=== PATIENT | male | born 1935 | race Caucasian/White ===

== ENCOUNTER 2017-05-10 08:00 | Outpatient (RCR) | payer MEDICARE, OTHER, SELFPAY ==
[2017-03-06 15:16] VITALS: BMI 49.1
[2017-04-10 01:37] VITALS: BP 106/60; BP 174/70
--- NOTE | 2017-05-10 10:31 | CR.ITP_ITS ---
Exercise - Initial Assessment - Stages of Change Stages of Change:: Contemplate - Exercise Prescription Mode:: Treadmill, Biodyne, Rower, Airdyne, NuStep, Arm Ergometer Angina with exercise?: No - Hypertension Do any of the following apply?: Yes - Intervention Home Exercise/Activity Goal:: Sitting Time <3 hrs/day - Education Goals:: Warm-up, RPE DAVID Scale, S/S, Safe Exercise, Self-Monitoring - Exercise Program Goals Exercise Program Goals: Aerobic Activity >30 min, B/P <140/90 Exercise - 30-day Assessment - Visit Date of Eval: 04/07/17 - Stages of Change Stages of Change:: Action - Exercise Prescription Mode:: Treadmill, Airdyne, NuStep Frequency (x/week): 3 Duration:: 30 METs - Progression: 0.5-1 MET as tolerated: 4 Target Heart Rate:: 99-112 Max HR 117 - Intervention Home Exercise/Activity Goal:: Sitting Time <3 hrs/day - Education Goals:: Warm-up, RPE DAVID Scale, S/S, Safe Exercise, Self-Monitoring - Exercise Program Goals Exercise Program Goals: B/P <140/90 Exercise - 60-Day Assessment - Visit Date of Eval: 05/10/17 Session #:: 19 - Stages of Change Stages of Change:: Action - Exercise Prescription Mode:: Treadmill, Airdyne, NuStep Frequency (x/week): 3 Duration:: 30 METs: 5.4 Target Heart Rate:: 99-112 - Hypertension Resting Blood Pressure:: 126/54 Peak Exercise Blood Pressure:: 166/90 Medication Changes:: No - Intervention Home Exercise/Activity Goal:: Moderate Exercise 30 min/day x 5 days/wk - Education Goals:: Warm-up, RPE DAVID Scale, S/S, Safe Exercise, Self-Monitoring - Exercise Program Goals Exercise Program Goals: Aerobic Activity >30 min Exercise - Final/Discharge - Hypertension Do any of the following apply?: Yes Nutrition - Initial Assessment - Program Goals Nutrition Program Goals: LDL <70. Total Cholesterol <200. HDL >45. Triglycerides <150. HgbA1C <7%. BMI <25 - Stages of Change Stages of Change:: Contemplate - Diabetes Diabetes:: No - Weight Management Total Score:: 2 - Intervention Referral to dietitian:: No Referral to Diabetic Clinic:: No - Education Gave educational materials for:: Signs & symptoms of hypoglycemia, Signs & symptoms of hyperglycemia, Relate diabetes to coronary artery disease, Healthy eating Nutrition - 30-Day Assessment - Program Goals Nutrition Program Goals: LDL <70. Total Cholesterol <200. HDL >45. Triglycerides <150. HgbA1C <7%. BMI <25 - Stages of Change Stages of Change:: Action - Lipids Has the patient seen the dietitian?: No - Diabetes Diabetes:: No - Intervention Referral to dietitian:: No Referral to Diabetic Clinic:: No - Education Attended class for:: Signs & symptoms of hypoglycemia, Signs & symptoms of hyperglycemia, Relate diabetes to coronary artery disease, Healthy eating Nutrition - 60-Day Assessment - Program Goals Nutrition Program Goals: LDL <70. Total Cholesterol <200. HDL >45. Triglycerides <150. HgbA1C <7%. BMI <25 - Visit Date of Eval: 05/10/17 - Stages of Change Stages of Change:: Action - Lipids Has the patient seen the dietitian?: No - Diabetes Diabetes:: No - Weight Management Weight:: 103.873 kg - stable, but feels clothes fit better - Intervention Referral to dietitian:: No Referral to Diabetic Clinic:: No - Education Attended class for:: Signs & symptoms of hypoglycemia, Signs & symptoms of hyperglycemia, Relate diabetes to coronary artery disease, Healthy eating Nutrition - 90-Day Assessment - Program Goals Nutrition Program Goals: LDL <70. Total Cholesterol <200. HDL >45. Triglycerides <150. HgbA1C <7%. BMI <25 - Lipids Has the patient seen the dietitian?: No - Diabetes Diabetes:: No - Intervention Referral to dietitian:: No Referral to Diabetic Clinic:: No - Education Attended class for:: Signs & symptoms of hypoglycemia, Signs & symptoms of hyperglycemia, Relate diabetes to coronary artery disease, Healthy eating Nutrition - Final Assessment - Program Goals Nutrition Program Goals: LDL <70. Total Cholesterol <200. HDL >45. Triglycerides <150. HgbA1C <7%. BMI <25 - Diabetes Diabetes:: No - Weight Management Total Score:: 2 - Intervention Referral to dietitian:: No Referral to Diabetic Clinic:: No Tobacco - Initial Assessment - Program Goals Tobacco Program Goals: Complete smoking cessation. Attend education classes. Improve Knowledge Test score - Stage of Change Stages of Change:: Contemplate - Learning Barriers Learning Barriers: Vision Total Score:: 5 - Family Support Do you have family support?: Yes - Tobacco Use Tobacco Use: Non-smoker Do you use smokeless tobacco?: No - Intervention Smoking Cessation Referral:: No Individual Education/Counseling:: No Education Schedule Given:: Yes - Education Gave educational material for:: Tobacco triggers, Coronary artery disease, Risk factors, Sexuality, Medical compliance, Cardiac A&P, Angina signs & symptoms Tobacco - 30-Day Assessment - Program Goals Tobacco Program Goals: Complete smoking cessation. Attend education classes. Improve Knowledge Test score - Stage of Change Stages of Change:: Action - Learning Barriers Learning Barriers: Participates in education - Family Support Do you have family support?: Yes - Tobacco Use Tobacco Use: Non-smoker Do you use smokeless tobacco?: No - Intervention Smoking Cessation Referral:: No Individual Education/Counseling:: No Education Schedule Given:: Yes - Education Attended class for:: Tobacco triggers, Coronary artery disease, Risk factors, Sexuality, Medical compliance, Cardiac A&P, Angina signs & symptoms Tobacco - 60-Day Assessment - Program Goals Tobacco Program Goals: Complete smoking cessation. Attend education classes. Improve Knowledge Test score - Stage of Change Stages of Change:: Action - Learning Barriers Learning Barriers: Participates in education - Family Support Do you have family support?: Yes - Tobacco Use Tobacco Use: Non-smoker Do you use smokeless tobacco?: No - Intervention Smoking Cessation Referral:: No Individual Education/Counseling:: No Education Schedule Given:: Yes - Education Attended class for:: Tobacco triggers, Coronary artery disease, Risk factors, Sexuality, Medical compliance, Cardiac A&P, Angina signs & symptoms Tobacco - 90-Day Assessment - Program Goals Tobacco Program Goals: Complete smoking cessation. Attend education classes. Improve Knowledge Test score - Family Support Do you have family support?: Yes - Tobacco Use Tobacco Use: Non-smoker Do you use smokeless tobacco?: No - Intervention Smoking Cessation Referral:: No Individual Education/Counseling:: No Education Schedule Given:: Yes - Education Attended class for:: Tobacco triggers, Coronary artery disease, Risk factors, Sexuality, Medical compliance, Cardiac A&P, Angina signs & symptoms Tobacco - Final Assessment - Program Goals Tobacco Program Goals: Complete smoking cessation. Attend education classes. Improve Knowledge Test score - Learning Barriers Cardiac Knowledge Test Score:: 5 - Family Support Do you have family support?: Yes - Tobacco Use Tobacco Use: Non-smoker Do you use smokeless tobacco?: No - Intervention Smoking Cessation Referral:: No Individual Education/Counseling:: No Education Schedule Given:: Yes Psychosocial - Initial Assess - Target Goals Target Goals: Assess presence or absence of depression. Using a valid screening tool, maximizes coping skills. Positive support system - Stages of Change Stages of Change:: Contemplate - Psychosocial Test Tool Used:: HANDS Depression Questionnaire Total Mood Screening Score:: 3 Self-Efficacy Score:: 6 - Education Gave educational materials for:: Coping techniques, Signs & symptoms of depression, Stress management, Relaxation techniques - Patient/Program Goal Preventative Medication(s):: Aspirin, SUKH inhibitor, Clopidogrel, Beta john, Statin/lipid - Assistive Devices Assistive Devices:: None Fall Risk Assessed:: Yes Psychosocial - 30-Day Assess - Target Goals Target Goals: Assess presence or absence of depression. Using a valid screening tool, maximizes coping skills. Positive support system - Stages of Change Stages of Change:: Action - Psychosocial Test Tool Used:: HANDS Depression Questionnaire Total Mood Screening Score:: 3 Self-Efficacy Score:: 6 - Patient/Program Goal Preventative Medication(s):: Aspirin, SUKH inhibitor, Clopidogrel, Beta john, Statin/lipid - Assistive Devices Assistive Devices:: None Fall Risk Assessed:: Yes Psychosocial - 60-Day Assess - Target Goals Target Goals: Assess presence or absence of depression. Using a valid screening tool, maximizes coping skills. Positive support system - Psychosocial Test Tool Used:: HANDS Depression Questionnaire Total Mood Screening Score:: 3 Self-Efficacy Score:: 6 - Intervention PS - Interventions: Yes Attend Stress Management Classes, Yes Uses Stress Management Skills, No Referral to Mental Health, No Referral to [facility] Case Management, No Referral to Physician - Education Attended classes for:: Coping techniques, Signs & symptoms of depression, Stress management, Relaxation techniques - Patient/Program Goal Preventative Medication(s):: Aspirin, SUKH inhibitor, Clopidogrel, Beta john, Statin/lipid - Assistive Devices Assistive Devices:: None Fall Risk Assessed:: Yes Psychosocial - 90-Day Assess - Target Goals Target Goals: Assess presence or absence of depression. Using a valid screening tool, maximizes coping skills. Positive support system - Psychosocial Test Tool Used:: HANDS Depression Questionnaire Total Mood Screening Score:: 3 Self-Efficacy Score:: 6 - Education Attended classes for:: Coping techniques, Signs & symptoms of depression, Stress management, Relaxation techniques - Patient/Program Goal Preventative Medication(s):: Aspirin, SUKH inhibitor, Clopidogrel, Beta john, Statin/lipid - Assistive Devices Assistive Devices:: None Fall Risk Assessed:: Yes Psychosocial - Final Assessmen - Target Goals Target Goals: Assess presence or absence of depression. Using a valid screening tool, maximizes coping skills. Positive support system - Psychosocial Test Tool Used:: HANDS Depression Questionnaire Total Mood Screening Score:: 3 Self-Efficacy Score:: 6 - Patient/Program Goal Preventative Medication(s):: Aspirin, SUKH inhibitor, Clopidogrel, Beta john, Statin/lipid - Assistive Devices Assistive Devices:: None Fall Risk Assessed:: Yes Patient Health Questionnaire 60-Day Re-eval Assessment 1. Little interest or pleasure in doing things: Not at all 2. Feeling down, depressed, or hopeless: Not at all 3. Trouble falling or staying asleep, or sleeping too much: Not at all 4. Feeling tired or having little energy: Several days 5. Poor appetite or overeating: Not at all 6. Feeling bad about yourself -- or that you are a failure or have let yourself or your family down: Not at all 7. Trouble concentrating on things, such as reading the newspaper or watching television: Not at all 8. Moving or speaking so slowly that other people could have noticed. Or the opposite - being so fidgety or restless that you have been moving around a lot more than usual: Not at all 9. Thoughts that you would be better off , or of hurting yourself in some way: Not at all How difficult have these problems made it for you to do your work, take care of things at home, or get along with other people?: Not difficult at all Total Score: 1 Self-Efficacy 60-Day Re-eval Assessment We would like to know how confident you are in doing certain activities. Please select your confidence level for:: Select your confidence level for the following using the scale 1-10 where 1 is not at all confident and 10 is totally confident. Your score is the average of all 6 responses. Fatigue: How confident are you that you can keep the fatigue caused by your disease from interfering with the things you want to do? Select Number: 9 Physical Discomfort or Pain: How confident are you that you can keep the physical discomfort or pain of your disease from interfering with the things you want to do? Select Number: 8 Emotional Distress: How confident are you that you can keep the emotional distress caused by your disease from interfering with the things you want to do? Select Number: 8 Other Symptoms or Health Problems: How confident are you that you can keep other symptoms or health problems from interfering with the things you want to do? Select Number: 8 Different Tasks and Activities: How confident are you that you can do the different tasks and activities needed to manage your health condition so as to reduce your need to see a doctor? Select Number: 9 Medication: How confident are you that you can do things other than just taking medication to reduce how much your illness affects your everyday life? Select Number: 10 Total Score:: 8 Cardiac Rehabilitation Goals - Cardiac Rehab Goals Cardiac Rehabilitation Goals: 1. Maintain the individual as the primary focus of care. 2. To improve the patient's quality of life. 3. Identification of cardiac risk factors and provide cardiac risk factor management. 4. Enhance the psychosocial status of the patient. 5. Reconditioning enough to allow the patient to resume customary activities. 6. Control symptoms of cardiac disease - Scale Scale for measuring improvement of personal goals: Enter appropriate number in Comments. 2 = Unchanged. 3 = Slightly Better. 4 = Moderate Improvement. 5 = Met my Goal 60-Day Re-eval Assessment Personal Goals: 30-day Re-assessment: Improve energy level - improved, Participate in home exercise program - improved, back to [facility] Improve muscle strength and endurance [facility]
[2017-05-10 10:32] VITALS: BP 126/54; BP 166/90
== END 2017-05-10 23:59 ==
LOC: CR 08:00
PROVIDERS: Family Provider Family Medicine; PCP Family Medicine; Visit Provider Internal Medicine Cardiovascular Disease
DX: I25.118 Atherosclerotic heart disease of native coronary artery with other forms of angina pectoris (principal); Z98.61 Coronary angioplasty status
CPT/HCPCS: 93798

== ENCOUNTER 2017-06-07 08:00 | Outpatient (RCR) | payer MEDICARE, OTHER, SELFPAY ==
[2017-03-06 15:16] VITALS: BMI 49.1
[2017-03-28 11:11] VITALS: BP 130/62; BMI 36.5
[2017-05-11 00:54] VITALS: BP 126/54; BP 166/90
--- NOTE | 2017-06-06 08:21 | PCM.CR.ITP ---
Exercise - Initial Assessment - Stages of Change Stages of Change:: Contemplate - Exercise Prescription Mode:: Treadmill, Biodyne, Rower, Airdyne, NuStep, Arm Ergometer Angina with exercise?: No - Hypertension Do any of the following apply?: Yes - Intervention Home Exercise/Activity Goal:: Sitting Time <3 hrs/day - Education Goals:: Warm-up, RPE DAVID Scale, S/S, Safe Exercise, Self-Monitoring - Exercise Program Goals Exercise Program Goals: Aerobic Activity >30 min, B/P <140/90 Exercise - 30-day Assessment - Visit Date of Eval: 04/07/17 - Stages of Change Stages of Change:: Action - Exercise Prescription Mode:: Treadmill, Airdyne, NuStep Frequency (x/week): 3 Duration:: 30 METs - Progression: 0.5-1 MET as tolerated: 4 Target Heart Rate:: 99-112 Max HR 117 - Intervention Home Exercise/Activity Goal:: Sitting Time <3 hrs/day - Education Goals:: Warm-up, RPE DAVID Scale, S/S, Safe Exercise, Self-Monitoring - Exercise Program Goals Exercise Program Goals: B/P <140/90 Exercise - 60-Day Assessment - Visit Date of Eval: 05/10/17 - Stages of Change Stages of Change:: Action - Exercise Prescription Mode:: Treadmill, Airdyne, NuStep Frequency (x/week): 3 Duration:: 30 METs: 5.4 Target Heart Rate:: 99-112 - Hypertension Medication Changes:: No - Intervention Home Exercise/Activity Goal:: Moderate Exercise 30 min/day x 5 days/wk - Education Goals:: Warm-up, RPE DAVID Scale, S/S, Safe Exercise, Self-Monitoring - Exercise Program Goals Exercise Program Goals: Aerobic Activity >30 min Exercise - 90-Day Assessment - Visit Date of Eval: 05/10/17 - Stages of Change Stages of Change:: Action - Exercise Prescription Mode:: Treadmill, Airdyne, NuStep Frequency (x/week): 3 Duration:: 30 METs: 5.4 Target Heart Rate:: 99-112 - Hypertension Medication Changes:: No - Intervention Home Exercise/Activity Goal:: Moderate Exercise 30 min/day x 5 days/wk - Education Goals:: Warm-up, RPE DAVID Scale, S/S, Safe Exercise, Self-Monitoring - Exercise Program Goals Exercise Program Goals: Aerobic Activity >30 min Exercise - Final/Discharge - Visit Date of Eval: 06/06/17 Session #:: 30 - Stages of Change Stages of Change:: Action - Exercise Prescription Mode:: Treadmill, Rower, Airdyne, NuStep Frequency (x/week): 3 Duration:: 30 METs: 5.4 Target Heart Rate:: 99-112 w/ max HR 106 - Hypertension Do any of the following apply?: Yes Resting Blood Pressure:: 118/64 Peak Exercise Blood Pressure:: 140/64 - Intervention Home Exercise/Activity Goal:: Moderate Exercise 30 min/day x 5 days/wk - Education Goal Progress: Goal Met - Exercise Program Goals Exercise Program Goals: Aerobic Activity >30 min Nutrition - Initial Assessment - Program Goals Nutrition Program Goals: LDL <70. Total Cholesterol <200. HDL >45. Triglycerides <150. HgbA1C <7%. BMI <25 - Stages of Change Stages of Change:: Contemplate - Diabetes Diabetes:: No - Weight Management Total Score:: 2 - Intervention Referral to dietitian:: No Referral to Diabetic Clinic:: No - Education Gave educational materials for:: Signs & symptoms of hypoglycemia, Signs & symptoms of hyperglycemia, Relate diabetes to coronary artery disease, Healthy eating Nutrition - 30-Day Assessment - Program Goals Nutrition Program Goals: LDL <70. Total Cholesterol <200. HDL >45. Triglycerides <150. HgbA1C <7%. BMI <25 - Stages of Change Stages of Change:: Action - Lipids Has the patient seen the dietitian?: No - Diabetes Diabetes:: No - Intervention Referral to dietitian:: No Referral to Diabetic Clinic:: No - Education Attended class for:: Signs & symptoms of hypoglycemia, Signs & symptoms of hyperglycemia, Relate diabetes to coronary artery disease, Healthy eating Nutrition - 60-Day Assessment - Program Goals Nutrition Program Goals: LDL <70. Total Cholesterol <200. HDL >45. Triglycerides <150. HgbA1C <7%. BMI <25 - Visit Date of Eval: 05/10/17 - Stages of Change Stages of Change:: Action - Lipids Has the patient seen the dietitian?: No - Diabetes Diabetes:: No - Intervention Referral to dietitian:: No Referral to Diabetic Clinic:: No - Education Attended class for:: Signs & symptoms of hypoglycemia, Signs & symptoms of hyperglycemia, Relate diabetes to coronary artery disease, Healthy eating Nutrition - 90-Day Assessment - Program Goals Nutrition Program Goals: LDL <70. Total Cholesterol <200. HDL >45. Triglycerides <150. HgbA1C <7%. BMI <25 - Visit Date of Eval: 05/10/17 - Stages of Change Stages of Change:: Action - Lipids Has the patient seen the dietitian?: No - Diabetes Diabetes:: No - Intervention Referral to dietitian:: No Referral to Diabetic Clinic:: No - Education Attended class for:: Signs & symptoms of hypoglycemia, Signs & symptoms of hyperglycemia, Relate diabetes to coronary artery disease, Healthy eating Nutrition - Final Assessment - Program Goals Nutrition Program Goals: LDL <70. Total Cholesterol <200. HDL >45. Triglycerides <150. HgbA1C <7%. BMI <25 - Visit Date of Eval: 06/06/17 - Stages of Change Stages of Change:: Action - Diabetes Diabetes:: No - Weight Management Height: 5 ft 7 in Weight:: 103.646 kg Total Score:: 2 - Intervention Referral to dietitian:: No Referral to Diabetic Clinic:: No Will attend diet classes:: Yes - Education Education Goal Reached?: Yes Tobacco - Initial Assessment - Program Goals Tobacco Program Goals: Complete smoking cessation. Attend education classes. Improve Knowledge Test score - Stage of Change Stages of Change:: Contemplate - Learning Barriers Learning Barriers: Vision Total Score:: 5 - Family Support Do you have family support?: Yes - Tobacco Use Tobacco Use: Non-smoker Do you use smokeless tobacco?: No - Intervention Smoking Cessation Referral:: No Individual Education/Counseling:: No Education Schedule Given:: Yes - Education Gave educational material for:: Tobacco triggers, Coronary artery disease, Risk factors, Sexuality, Medical compliance, Cardiac A&P, Angina signs & symptoms Tobacco - 30-Day Assessment - Program Goals Tobacco Program Goals: Complete smoking cessation. Attend education classes. Improve Knowledge Test score - Stage of Change Stages of Change:: Action - Learning Barriers Learning Barriers: Participates in education - Family Support Do you have family support?: Yes - Tobacco Use Tobacco Use: Non-smoker Do you use smokeless tobacco?: No - Intervention Smoking Cessation Referral:: No Individual Education/Counseling:: No Education Schedule Given:: Yes - Education Attended class for:: Tobacco triggers, Coronary artery disease, Risk factors, Sexuality, Medical compliance, Cardiac A&P, Angina signs & symptoms Tobacco - 60-Day Assessment - Program Goals Tobacco Program Goals: Complete smoking cessation. Attend education classes. Improve Knowledge Test score - Stage of Change Stages of Change:: Action - Learning Barriers Learning Barriers: Participates in education - Family Support Do you have family support?: Yes - Tobacco Use Tobacco Use: Non-smoker Do you use smokeless tobacco?: No - Intervention Smoking Cessation Referral:: No Individual Education/Counseling:: No Education Schedule Given:: Yes - Education Attended class for:: Tobacco triggers, Coronary artery disease, Risk factors, Sexuality, Medical compliance, Cardiac A&P, Angina signs & symptoms Tobacco - 90-Day Assessment - Program Goals Tobacco Program Goals: Complete smoking cessation. Attend education classes. Improve Knowledge Test score - Stage of Change Stages of Change:: Action - Learning Barriers Learning Barriers: Participates in education - Family Support Do you have family support?: Yes - Tobacco Use Tobacco Use: Non-smoker Do you use smokeless tobacco?: No - Intervention Smoking Cessation Referral:: No Individual Education/Counseling:: No Education Schedule Given:: Yes - Education Attended class for:: Tobacco triggers, Coronary artery disease, Risk factors, Sexuality, Medical compliance, Cardiac A&P, Angina signs & symptoms Tobacco - Final Assessment - Program Goals Tobacco Program Goals: Complete smoking cessation. Attend education classes. Improve Knowledge Test score - Stage of Change Stages of Change:: Action - Learning Barriers Cardiac Knowledge Test Score:: 5 - Family Support Do you have family support?: Yes - Tobacco Use Tobacco Use: Non-smoker Do you use smokeless tobacco?: No - Intervention Smoking Cessation Referral:: No Individual Education/Counseling:: No Education Schedule Given:: Yes - Education Education Goal Reached?: Yes Psychosocial - Initial Assess - Target Goals Target Goals: Assess presence or absence of depression. Using a valid screening tool, maximizes coping skills. Positive support system - Stages of Change Stages of Change:: Contemplate - Psychosocial Test Tool Used:: HANDS Depression Questionnaire Total Mood Screening Score:: 3 Self-Efficacy Score:: 6 - Intervention PS - Interventions: Yes Attend Stress Management Classes, Yes Uses Stress Management Skills, No Referral to Mental Health, No Referral to [facility] Case Management, No Referral to Physician - Education Gave educational materials for:: Coping techniques, Signs & symptoms of depression, Stress management, Relaxation techniques - Patient/Program Goal Preventative Medication(s):: Aspirin, SUKH inhibitor, Clopidogrel, Beta john, Statin/lipid - Assistive Devices Assistive Devices:: None Fall Risk Assessed:: Yes Psychosocial - 30-Day Assess - Target Goals Target Goals: Assess presence or absence of depression. Using a valid screening tool, maximizes coping skills. Positive support system - Stages of Change Stages of Change:: Action - Psychosocial Test Tool Used:: HANDS Depression Questionnaire Total Mood Screening Score:: 3 Self-Efficacy Score:: 6 - Patient/Program Goal Preventative Medication(s):: Aspirin, SUKH inhibitor, Clopidogrel, Beta john, Statin/lipid - Assistive Devices Assistive Devices:: None Fall Risk Assessed:: Yes Psychosocial - 60-Day Assess - Target Goals Target Goals: Assess presence or absence of depression. Using a valid screening tool, maximizes coping skills. Positive support system - Psychosocial Test Tool Used:: HANDS Depression Questionnaire Total Mood Screening Score:: 3 Self-Efficacy Score:: 6 - Education Attended classes for:: Coping techniques, Signs & symptoms of depression, Stress management, Relaxation techniques - Patient/Program Goal Preventative Medication(s):: Aspirin, SUKH inhibitor, Clopidogrel, Beta john, Statin/lipid - Assistive Devices Assistive Devices:: None Fall Risk Assessed:: Yes Psychosocial - 90-Day Assess - Target Goals Target Goals: Assess presence or absence of depression. Using a valid screening tool, maximizes coping skills. Positive support system - Psychosocial Test Tool Used:: HANDS Depression Questionnaire Total Mood Screening Score:: 3 Self-Efficacy Score:: 6 - Education Attended classes for:: Coping techniques, Signs & symptoms of depression, Stress management, Relaxation techniques - Patient/Program Goal Preventative Medication(s):: Aspirin, SUKH inhibitor, Clopidogrel, Beta john, Statin/lipid - Assistive Devices Assistive Devices:: None Fall Risk Assessed:: Yes Psychosocial - Final Assessmen - Target Goals Target Goals: Assess presence or absence of depression. Using a valid screening tool, maximizes coping skills. Positive support system - Stages of Change Stages of Change:: Action - Psychosocial Test Tool Used:: HANDS Depression Questionnaire Total Mood Screening Score:: 3 Self-Efficacy Score:: 6 - Intervention PS - Interventions: Yes Attend Stress Management Classes, Yes Uses Stress Management Skills, No Referral to Mental Health, No Referral to [facility] Case Management, No Referral to Physician - Education Education Goal Reached?: Yes - Patient/Program Goal Preventative Medication(s):: Aspirin, SUKH inhibitor, Clopidogrel, Beta john, Statin/lipid - Assistive Devices Assistive Devices:: None Fall Risk Assessed:: Yes Patient Health Questionnaire Discharge Assessment 1. Little interest or pleasure in doing things: Not at all 2. Feeling down, depressed, or hopeless: Not at all 3. Trouble falling or staying asleep, or sleeping too much: Not at all 4. Feeling tired or having little energy: Not at all 5. Poor appetite or overeating: Not at all 6. Feeling bad about yourself -- or that you are a failure or have let yourself or your family down: Not at all 7. Trouble concentrating on things, such as reading the newspaper or watching television: Not at all 8. Moving or speaking so slowly that other people could have noticed. Or the opposite - being so fidgety or restless that you have been moving around a lot more than usual: Not at all 9. Thoughts that you would be better off , or of hurting yourself in some way: Not at all Total Score: 0 Knowledge Test - Check your knowledge Discharge The #1 cause of in the [place] each year is:: Heart disease Which of the following is a common treatment for heart disease?: All of the above The arteries that feed the heart are called:: Coronary arteries HDL cholesterol is known as the good cholesterol.: True What disease increases your risk for heart disease?: Diabetes What food product raises blood cholesterol level the most?: Saturated fat The bad cholesterol in the blood is called:: LDL Hypertension is another word for:: High blood pressure A blood pressure reading of 148/88 is considered normal.: False Exercise will only benefit your health when your heart rate reaches a target level.: False Total Score:: 10 Self-Efficacy Discharge Assessment We would like to know how confident you are in doing certain activities. Please select your confidence level for:: Select your confidence level for the following using the scale 1-10 where 1 is not at all confident and 10 is totally confident. Your score is the average of all 6 responses. Fatigue: How confident are you that you can keep the fatigue caused by your disease from interfering with the things you want to do? Select Number: 10 Physical Discomfort or Pain: How confident are you that you can keep the physical discomfort or pain of your disease from interfering with the things you want to do? Select Number: 10 Emotional Distress: How confident are you that you can keep the emotional distress caused by your disease from interfering with the things you want to do? Select Number: 10 Other Symptoms or Health Problems: How confident are you that you can keep other symptoms or health problems from interfering with the things you want to do? Select Number: 10 Different Tasks and Activities: How confident are you that you can do the different tasks and activities needed to manage your health condition so as to reduce your need to see a doctor? Select Number: 10 Medication: How confident are you that you can do things other than just taking medication to reduce how much your illness affects your everyday life? Select Number: 10 Total Score:: 10 Nutrition Survey - Nutrition Survey Instructions Scoring Instructions: Scoring is as follows: Yes = 1 points. No = 0 point. Patient score that is >/=12 is considered to be at potential nutritional risk and could benefit from a referral to a registered dietitian. - Nutrition Survey Discharge Have you lost >10 lbs over the past 2 months without trying?: No Are you following a special diet at home for diabetes, low fat, or low salt?: Yes Are you interested in meeting with a dietitian for help understanding your diet?: No Do you eat less than 3 meals a day?: No Do you eat fatty meats (fonseca, sausage, ribs, etc), fried foods, desserts, large amounts of salad dressings, margarine, butter, or cheese most days?: No Do you have food allergies? [Enter types in comment field]: No Do you eat in restaurants more than 3 times a week?: No Do you season food with salt, seasoning salt, or garlic salt?: No Do you used canned, boxed, frozen meals, or soups, seasoning packets?: Yes Total Score:: 2 Cardiac Rehabilitation Goals - Cardiac Rehab Goals Cardiac Rehabilitation Goals: 1. Maintain the individual as the primary focus of care. 2. To improve the patient's quality of life. 3. Identification of cardiac risk factors and provide cardiac risk factor management. 4. Enhance the psychosocial status of the patient. 5. Reconditioning enough to allow the patient to resume customary activities. 6. Control symptoms of cardiac disease - Scale Scale for measuring improvement of personal goals: Enter appropriate number in Comments. 2 = Unchanged. 3 = Slightly Better. 4 = Moderate Improvement. 5 = Met my Goal Discharge Assessment Personal Goals: Discharge Reassessment: Improve management of stress and emotions, Improve energy level, Participate in home exercise program - resuming exercise at [facility], Get back to work, or to resume activities faster, Improve knowledge of cardiac disease, Improve muscle strength and endurance, Improve diet and eating habits (eat healthier), Control risk factors (learn risk factor modification)
[2017-06-06 08:26] VITALS: BP 118/64; BP 140/64
== END 2017-06-07 23:59 ==
LOC: CR 08:00
PROVIDERS: Family Provider Family Medicine; PCP Family Medicine; Visit Provider Internal Medicine Cardiovascular Disease
DX: Z00.00 Encounter for general adult medical examination without abnormal findings (principal)
CPT/HCPCS: 93798

== ENCOUNTER 2017-06-19 08:00 | Outpatient (RCR) | payer MEDICARE, OTHER, SELFPAY ==
[2017-03-06 15:16] VITALS: BMI 49.1
[2017-06-08 00:42] VITALS: BP 118/64; BP 140/64
--- NOTE | 2017-07-03 13:11 | PCM.CR.ITP ---
Exercise - Initial Assessment - Stages of Change Stages of Change:: Contemplate - Exercise Prescription Mode:: Treadmill, Biodyne, Rower, Airdyne, NuStep, Arm Ergometer Angina with exercise?: No - Hypertension Do any of the following apply?: Yes - Intervention Home Exercise/Activity Goal:: Sitting Time <3 hrs/day - Education Goals:: Warm-up, RPE DAVID Scale, S/S, Safe Exercise, Self-Monitoring - Exercise Program Goals Exercise Program Goals: Aerobic Activity >30 min, B/P <140/90 Exercise - 30-day Assessment - Stages of Change Stages of Change:: Action - Exercise Prescription Mode:: Treadmill, Airdyne, NuStep Frequency (x/week): 3 Duration:: 30 METs - Progression: 0.5-1 MET as tolerated: 4 Target Heart Rate:: 99-112 Max HR 117 - Intervention Home Exercise/Activity Goal:: Sitting Time <3 hrs/day - Education Goals:: Warm-up, RPE DAVID Scale, S/S, Safe Exercise, Self-Monitoring - Exercise Program Goals Exercise Program Goals: B/P <140/90 Exercise - 60-Day Assessment - Visit Date of Eval: 05/10/17 - Stages of Change Stages of Change:: Action - Exercise Prescription Mode:: Treadmill, Airdyne, NuStep Frequency (x/week): 3 Duration:: 30 METs: 5.4 Target Heart Rate:: 99-112 - Hypertension Medication Changes:: No - Intervention Home Exercise/Activity Goal:: Moderate Exercise 30 min/day x 5 days/wk - Education Goals:: Warm-up, RPE DAVID Scale, S/S, Safe Exercise, Self-Monitoring - Exercise Program Goals Exercise Program Goals: Aerobic Activity >30 min Exercise - 90-Day Assessment - Visit Date of Eval: 05/10/17 - Stages of Change Stages of Change:: Action - Exercise Prescription Mode:: Treadmill, Airdyne, NuStep Frequency (x/week): 3 Duration:: 30 METs: 5.4 Target Heart Rate:: 99-112 - Hypertension Medication Changes:: No - Intervention Home Exercise/Activity Goal:: Moderate Exercise 30 min/day x 5 days/wk - Education Goals:: Warm-up, RPE DAVID Scale, S/S, Safe Exercise, Self-Monitoring - Exercise Program Goals Exercise Program Goals: Aerobic Activity >30 min Exercise - Final/Discharge - Visit Date of Eval: 07/03/17 - 05/24/2017-06/19/2017 Session #:: 36 - Stages of Change Stages of Change:: Action - Exercise Prescription Mode:: Treadmill, Rower, Airdyne, NuStep Frequency (x/week): 3 Duration:: 30 METs: 5.4 Target Heart Rate:: 99-112 w/ max HR 103 - Hypertension Do any of the following apply?: Yes Resting Blood Pressure:: 118/64 Peak Exercise Blood Pressure:: 170/80 - Intervention Home Exercise/Activity Goal:: Moderate Exercise 30 min/day x 5 days/wk - Education Goal Progress: Goal Met - Exercise Program Goals Exercise Program Goals: Aerobic Activity >30 min Nutrition - Initial Assessment - Program Goals Nutrition Program Goals: LDL <70. Total Cholesterol <200. HDL >45. Triglycerides <150. HgbA1C <7%. BMI <25 - Stages of Change Stages of Change:: Contemplate - Diabetes Diabetes:: No - Weight Management Total Score:: 2 - Intervention Referral to dietitian:: No Referral to Diabetic Clinic:: No Will attend diet classes:: Yes - Education Gave educational materials for:: Signs & symptoms of hypoglycemia, Signs & symptoms of hyperglycemia, Relate diabetes to coronary artery disease, Healthy eating Nutrition - 30-Day Assessment - Program Goals Nutrition Program Goals: LDL <70. Total Cholesterol <200. HDL >45. Triglycerides <150. HgbA1C <7%. BMI <25 - Stages of Change Stages of Change:: Action - Lipids Has the patient seen the dietitian?: No - Diabetes Diabetes:: No - Intervention Referral to dietitian:: No Referral to Diabetic Clinic:: No Will attend diet classes:: Yes - Education Attended class for:: Signs & symptoms of hypoglycemia, Signs & symptoms of hyperglycemia, Relate diabetes to coronary artery disease, Healthy eating Nutrition - 60-Day Assessment - Program Goals Nutrition Program Goals: LDL <70. Total Cholesterol <200. HDL >45. Triglycerides <150. HgbA1C <7%. BMI <25 - Visit Date of Eval: 05/10/17 - Stages of Change Stages of Change:: Action - Lipids Has the patient seen the dietitian?: No - Diabetes Diabetes:: No - Intervention Referral to dietitian:: No Referral to Diabetic Clinic:: No Will attend diet classes:: Yes - Education Attended class for:: Signs & symptoms of hypoglycemia, Signs & symptoms of hyperglycemia, Relate diabetes to coronary artery disease, Healthy eating Nutrition - 90-Day Assessment - Program Goals Nutrition Program Goals: LDL <70. Total Cholesterol <200. HDL >45. Triglycerides <150. HgbA1C <7%. BMI <25 - Visit Date of Eval: 05/10/17 - Stages of Change Stages of Change:: Action - Lipids Has the patient seen the dietitian?: No - Diabetes Diabetes:: No - Intervention Referral to dietitian:: No Referral to Diabetic Clinic:: No Will attend diet classes:: Yes - Education Attended class for:: Signs & symptoms of hypoglycemia, Signs & symptoms of hyperglycemia, Relate diabetes to coronary artery disease, Healthy eating Nutrition - Final Assessment - Program Goals Nutrition Program Goals: LDL <70. Total Cholesterol <200. HDL >45. Triglycerides <150. HgbA1C <7%. BMI <25 - Visit Date of Eval: 07/03/17 - 05/24/2017-06/19/2017 - Stages of Change Stages of Change:: Action - Diabetes Diabetes:: No - Weight Management Weight:: 103.873 kg Total Score:: 2 - Intervention Referral to dietitian:: No Referral to Diabetic Clinic:: No Will attend diet classes:: Yes - Education Education Goal Reached?: Yes Tobacco - Initial Assessment - Program Goals Tobacco Program Goals: Complete smoking cessation. Attend education classes. Improve Knowledge Test score - Stage of Change Stages of Change:: Contemplate - Learning Barriers Learning Barriers: Vision Total Score:: 5 - Family Support Do you have family support?: Yes - Tobacco Use Tobacco Use: Non-smoker Do you use smokeless tobacco?: No - Intervention Smoking Cessation Referral:: No Individual Education/Counseling:: No Education Schedule Given:: Yes - Education Gave educational material for:: Tobacco triggers, Coronary artery disease, Risk factors, Sexuality, Medical compliance, Cardiac A&P, Angina signs & symptoms Tobacco - 30-Day Assessment - Program Goals Tobacco Program Goals: Complete smoking cessation. Attend education classes. Improve Knowledge Test score - Stage of Change Stages of Change:: Action - Learning Barriers Learning Barriers: Participates in education - Family Support Do you have family support?: Yes - Tobacco Use Tobacco Use: Non-smoker Do you use smokeless tobacco?: No - Intervention Smoking Cessation Referral:: No Individual Education/Counseling:: No Education Schedule Given:: Yes - Education Attended class for:: Tobacco triggers, Coronary artery disease, Risk factors, Sexuality, Medical compliance, Cardiac A&P, Angina signs & symptoms Tobacco - 60-Day Assessment - Program Goals Tobacco Program Goals: Complete smoking cessation. Attend education classes. Improve Knowledge Test score - Stage of Change Stages of Change:: Action - Learning Barriers Learning Barriers: Participates in education - Family Support Do you have family support?: Yes - Tobacco Use Tobacco Use: Non-smoker Do you use smokeless tobacco?: No - Intervention Smoking Cessation Referral:: No Individual Education/Counseling:: No Education Schedule Given:: Yes - Education Attended class for:: Tobacco triggers, Coronary artery disease, Risk factors, Sexuality, Medical compliance, Cardiac A&P, Angina signs & symptoms Tobacco - 90-Day Assessment - Program Goals Tobacco Program Goals: Complete smoking cessation. Attend education classes. Improve Knowledge Test score - Stage of Change Stages of Change:: Action - Learning Barriers Learning Barriers: Participates in education - Family Support Do you have family support?: Yes - Tobacco Use Tobacco Use: Non-smoker Do you use smokeless tobacco?: No - Intervention Smoking Cessation Referral:: No Individual Education/Counseling:: No Education Schedule Given:: Yes - Education Attended class for:: Tobacco triggers, Coronary artery disease, Risk factors, Sexuality, Medical compliance, Cardiac A&P, Angina signs & symptoms Tobacco - Final Assessment - Program Goals Tobacco Program Goals: Complete smoking cessation. Attend education classes. Improve Knowledge Test score - Stage of Change Stages of Change:: Action - Learning Barriers Cardiac Knowledge Test Score:: 9 - Family Support Do you have family support?: Yes - Tobacco Use Tobacco Use: Non-smoker Do you use smokeless tobacco?: No - Intervention Smoking Cessation Referral:: No Individual Education/Counseling:: No Education Schedule Given:: Yes - Education Education Goal Reached?: Yes Psychosocial - Initial Assess - Target Goals Target Goals: Assess presence or absence of depression. Using a valid screening tool, maximizes coping skills. Positive support system - Stages of Change Stages of Change:: Contemplate - Psychosocial Test Tool Used:: HANDS Depression Questionnaire Total Mood Screening Score:: 3 Self-Efficacy Score:: 6 - Patient/Program Goal Preventative Medication(s):: Aspirin, SUKH inhibitor, Clopidogrel, Beta john, Statin/lipid - Assistive Devices Assistive Devices:: None Fall Risk Assessed:: Yes Psychosocial - 30-Day Assess - Target Goals Target Goals: Assess presence or absence of depression. Using a valid screening tool, maximizes coping skills. Positive support system - Stages of Change Stages of Change:: Action - Psychosocial Test Tool Used:: HANDS Depression Questionnaire Total Mood Screening Score:: 3 Self-Efficacy Score:: 6 - Patient/Program Goal Preventative Medication(s):: Aspirin, SUKH inhibitor, Clopidogrel, Beta john, Statin/lipid - Assistive Devices Assistive Devices:: None Fall Risk Assessed:: Yes Psychosocial - 60-Day Assess - Target Goals Target Goals: Assess presence or absence of depression. Using a valid screening tool, maximizes coping skills. Positive support system - Psychosocial Test Tool Used:: HANDS Depression Questionnaire Total Mood Screening Score:: 3 Self-Efficacy Score:: 6 - Patient/Program Goal Preventative Medication(s):: Aspirin, SUKH inhibitor, Clopidogrel, Beta john, Statin/lipid - Assistive Devices Assistive Devices:: None Fall Risk Assessed:: Yes Psychosocial - 90-Day Assess - Target Goals Target Goals: Assess presence or absence of depression. Using a valid screening tool, maximizes coping skills. Positive support system - Psychosocial Test Tool Used:: HANDS Depression Questionnaire Total Mood Screening Score:: 3 Self-Efficacy Score:: 6 - Patient/Program Goal Preventative Medication(s):: Aspirin, SUKH inhibitor, Clopidogrel, Beta john, Statin/lipid - Assistive Devices Assistive Devices:: None Fall Risk Assessed:: Yes Psychosocial - Final Assessmen - Target Goals Target Goals: Assess presence or absence of depression. Using a valid screening tool, maximizes coping skills. Positive support system - Stages of Change Stages of Change:: Action - Psychosocial Test Tool Used:: HANDS Depression Questionnaire Total Mood Screening Score:: 3 Self-Efficacy Score:: 6 - Intervention PS - Interventions: Yes Attend Stress Management Classes, Yes Uses Stress Management Skills, No Referral to Mental Health, No Referral to [facility] Case Management, No Referral to Physician - Education Education Goal Reached?: Yes - Patient/Program Goal Preventative Medication(s):: Aspirin, SUKH inhibitor, Clopidogrel, Beta john, Statin/lipid - Assistive Devices Assistive Devices:: None Fall Risk Assessed:: Yes Patient Health Questionnaire Discharge Assessment 1. Little interest or pleasure in doing things: Not at all 2. Feeling down, depressed, or hopeless: Not at all 3. Trouble falling or staying asleep, or sleeping too much: Not at all 4. Feeling tired or having little energy: Several days 5. Poor appetite or overeating: Not at all 6. Feeling bad about yourself -- or that you are a failure or have let yourself or your family down: Not at all 7. Trouble concentrating on things, such as reading the newspaper or watching television: Not at all 8. Moving or speaking so slowly that other people could have noticed. Or the opposite - being so fidgety or restless that you have been moving around a lot more than usual: Not at all 9. Thoughts that you would be better off , or of hurting yourself in some way: Not at all Total Score: 1 Self-Efficacy Discharge Assessment We would like to know how confident you are in doing certain activities. Please select your confidence level for:: Select your confidence level for the following using the scale 1-10 where 1 is not at all confident and 10 is totally confident. Your score is the average of all 6 responses. Fatigue: How confident are you that you can keep the fatigue caused by your disease from interfering with the things you want to do? Select Number: 8 Physical Discomfort or Pain: How confident are you that you can keep the physical discomfort or pain of your disease from interfering with the things you want to do? Select Number: 8 Emotional Distress: How confident are you that you can keep the emotional distress caused by your disease from interfering with the things you want to do? Select Number: 8 Other Symptoms or Health Problems: How confident are you that you can keep other symptoms or health problems from interfering with the things you want to do? Select Number: 8 Different Tasks and Activities: How confident are you that you can do the different tasks and activities needed to manage your health condition so as to reduce your need to see a doctor? Select Number: 8 Medication: How confident are you that you can do things other than just taking medication to reduce how much your illness affects your everyday life? Select Number: 8 Total Score:: 8 Cardiac Rehabilitation Goals - Cardiac Rehab Goals Cardiac Rehabilitation Goals: 1. Maintain the individual as the primary focus of care. 2. To improve the patient's quality of life. 3. Identification of cardiac risk factors and provide cardiac risk factor management. 4. Enhance the psychosocial status of the patient. 5. Reconditioning enough to allow the patient to resume customary activities. 6. Control symptoms of cardiac disease - Scale Scale for measuring improvement of personal goals: Enter appropriate number in Comments. 2 = Unchanged. 3 = Slightly Better. 4 = Moderate Improvement. 5 = Met my Goal Discharge Assessment Personal Goals: Discharge Reassessment: Improve energy level, Participate in home exercise program, Improve muscle strength and endurance, Improve diet and eating habits (eat healthier)
[2017-07-03 13:15] VITALS: BP 118/64; BP 170/80
== END 2017-06-21 08:40 | disposition home or self-care (01) ==
LOC: CR 08:00
PROVIDERS: Family Provider Family Medicine; PCP Family Medicine; Visit Provider Internal Medicine Cardiovascular Disease
DX: Z95.5 Presence of coronary angioplasty implant and graft (principal); I21.3 ST elevation (STEMI) myocardial infarction of unspecified site; I25.10 Atherosclerotic heart disease of native coronary artery without angina pectoris
CPT/HCPCS: 93798

== ENCOUNTER → 2017-08-10 06:40 | Outpatient (CLI) | payer MEDICARE, OTHER, SELFPAY ==
[2017-03-06 15:16] VITALS: BMI 49.1
--- NOTE | 2017-08-10 17:14 | STRESSREP ---
Stress Test Report Date: 08/10/2017 Procedure: Exercise tolerance test/imaging study Indications: Shortness of breath/dyspnea: CAD; PCI Consent: Per the patient Procedure: The patient exercised on a Franklyn protocol for 7 minutes completing Stage II and 1 minute of Stage III achieving a peak heart rate of 120 bpm (85 % predicted maximal heart rate) with a peak blood pressure 178/76 mmHg and a peak MET capacity of 7 METs. The baseline ECG demonstrated normal sinus rhythm. The peak exercise ECG demonstrated no obvious ECG changes. There was a rare PVC during recovery. The functional capacity was considered good. There was no complaint of chest discomfort during exercise or recovery. The examination was discontinued secondary to dyspnea. Impression: 1. Technically adequate (percent predicted maximal heart rate greater than 85%) exercise tolerance test 2. Peak exercise ECG with no obvious ECG changes 3. There was a rare PVC during recovery. 4. Nuclear images pending Myocardial perfusion imaging study: Technique: The patient was injected with 14.7 mCi of technetium 99m Cardiolite and subsequently rest SPECT Cardiolite nuclear imaging was obtained in the horizontal long, vertical long, and short axis views. The patient exercised on a Franklyn protocol for 7 minutes completing Stage II and 1 minute of Stage III achieving a peak heart rate of 120 bpm (85 % predicted maximal heart rate) with a peak blood pressure 178/76 mmHg and a peak MET capacity of 7 METs. The patient was injected with mCi of technetium 99m Cardiolite and subsequently stress SPECT Cardiolite nuclear imaging was obtained in the horizontal long, vertical long, and short axis views. A gated Cardiolite study at peak stress was obtained. Interpretation: Rest and stress SPECT Cardiolite nuclear imaging status post realignment, normalization, and attenuation correction, demonstrates the appearance of relative uniform tracer uptake and myocardial perfusion appearing within normal limits. There is end systolic thickening and brightening. The gated Cardiolite study demonstrates myocardial thickening and inward wall motion. The reported LVEF is 54 %. Impression: 1. Rest and stress SPECT Cardiolite nuclear imaging demonstrate relative uniform tracer uptake and myocardial perfusion appearing within normal limits. 2. The gated Cardiolite study reports an LVEF of 54 %. This note was generated with algranoation software. It may contain incorrect words, spelling, and punctuation that were not noted in checking the note before signing.
--- NOTE | 2017-08-10 17:20 | STRESSREP_ITS ---
Stress Test Report Date: 08/10/2017 Procedure: Exercise tolerance test/imaging study Indications: Shortness of breath/dyspnea: CAD; PCI Consent: Per the patient Procedure: The patient exercised on a Franklyn protocol for 7 minutes completing Stage II and 1 minute of Stage III achieving a peak heart rate of 120 bpm (85 % predicted maximal heart rate) with a peak blood pressure 178/76 mmHg and a peak MET capacity of 7 METs. The baseline ECG demonstrated normal sinus rhythm. The peak exercise ECG demonstrated no obvious ECG changes. There was a rare PVC during recovery. The functional capacity was considered good. There was no complaint of chest discomfort during exercise or recovery. The examination was discontinued secondary to dyspnea. Impression: 1. Technically adequate (percent predicted maximal heart rate greater than 85% ) exercise tolerance test 2. Peak exercise ECG with no obvious ECG changes 3. There was a rare PVC during recovery. 4. Nuclear images pending Myocardial perfusion imaging study: Technique: The patient was injected with 14.7 mCi of technetium 99m Cardiolite and subsequently rest SPECT Cardiolite nuclear imaging was obtained in the horizontal long, vertical long, and short axis views. The patient exercised on a Franklyn protocol for 7 minutes completing Stage II and 1 minute of Stage III achieving a peak heart rate of 120 bpm (85 % predicted maximal heart rate) with a peak blood pressure 178/76 mmHg and a peak MET capacity of 7 METs. The patient was injected with mCi of technetium 99m Cardiolite and subsequently stress SPECT Cardiolite nuclear imaging was obtained in the horizontal long, vertical long, and short axis views. A gated Cardiolite study at peak stress was obtained. Interpretation: Rest and stress SPECT Cardiolite nuclear imaging status post realignment, normalization, and attenuation correction, demonstrates the appearance of relative uniform tracer uptake and myocardial perfusion appearing within normal limits. There is end systolic thickening and brightening. The gated Cardiolite study demonstrates myocardial thickening and inward wall motion. The reported LVEF is 54 %. Impression: 1. Rest and stress SPECT Cardiolite nuclear imaging demonstrate relative uniform tracer uptake and myocardial perfusion appearing within normal limits. 2. The gated Cardiolite study reports an LVEF of 54 %. This note was generated with Carmaation software. It may contain incorrect words, spelling, and punctuation that were not noted in checking the note before signing.
== END ==
PROVIDERS: Family Provider Family Medicine; PCP Family Medicine; Visit Provider Nurse Practitioner Family
DX: I25.10 Atherosclerotic heart disease of native coronary artery without angina pectoris (principal); Z98.61 Coronary angioplasty status; R06.09 Other forms of dyspnea
CPT/HCPCS: 78452; 93017; A9500; A4216

== ENCOUNTER → 2017-08-16 06:44 | Outpatient (CLI) | payer MEDICARE, OTHER, SELFPAY ==
[2017-03-06 15:16] VITALS: BMI 49.1
--- NOTE | 2017-08-17 08:34 | PFT ---
INTRODUCTION: The patient is a 81-year-old male currently under the care of Ezekiel Alvarez NP that presents for pulmonary function testing secondary to a diagnosis of shortness of breath. Respiratory therapy reports good patient effort. Bronchodilators were used during testing. INTERPRETATION: Forced expiration spirometry demonstrates no evidence of a large airways obstructive ventilatory defect. There was no significant response to aerosolized bronchodilators, based upon strict ATS criteria. Spirograms are of good quality and plateau gradually indicating slow emptying of the lungs. Body plethysmography was performed and reveals lung volumes to be within normal limits. Diffusing capacity by single breath CO is within normal limits at 89% of predicted. IMPRESSION: These pulmonary function studies are essentially within normal limits.
== END ==
PROVIDERS: Family Provider Family Medicine; PCP Family Medicine; Visit Provider Nurse Practitioner Family
DX: R06.09 Other forms of dyspnea (principal); I25.10 Atherosclerotic heart disease of native coronary artery without angina pectoris; Z98.61 Coronary angioplasty status
CPT/HCPCS: 94060; 94726; 94729

== ENCOUNTER → 2017-08-28 09:44 | Outpatient (CLI) | payer MEDICARE, OTHER, SELFPAY ==
[2017-03-06 15:16] VITALS: BMI 49.1
[2017-08-28 10:35] LABS: Absolute Neutrophil Count 3.2 X10^3/uL (2.0-7.7); Basophil# 0.05 X10^3/uL; Basophil% 0.8 % (0-1); Differential Indicated SCAN CRITERIA MET; Eosinophil# 0.24 X10^3/uL; Hemoglobin 10.6 g/dl (13.0-16.5); Lymphocyte % 28.7 % (19-41); Mean Corp Hgb Conc 30.3 g/gl (32-36); Mean Corpuscular Hgb 22.7 pg (27.0-32.0); Mean Corpuscular Volume 74.9 fL (80-94); Mean Platelet Vol. 9.4 fl (6.2-12.0); Monocyte# 0.75 X10^3/uL; Monocyte% 12.6 % (0-10); Neutrophil # 3.18 X10^3/uL (2.7-7.7); Neutrophil % 53.7 % (47-70); POSITIVE COUNT NO; POSITIVE DIFFERENTIAL NO; POSITIVE MORPHOLOGY YES; Platelet Count 301 K/mm3 (150-450); RBC Distribution Width CV 17.4 % (11.6-14.6); Red Blood Count 4.67 M/mm3 (4.6-6.2); White Blood Count 5.9 K/mm3 (4.4-11.0)
[2017-08-28 10:38] LABS: International Normalized Ratio 1.1; Prothrombin Time (Protime)PT. 14.1 SECONDS (11.7-14.9)
[2017-08-28 10:39] LABS: Partial Thromboplast Time 29.1 Seconds (24.1-36.2)
--- NOTE | 2017-08-28 10:50 | RAD_ITS ---
STUDY: X-RAY CHEST REASON FOR EXAM: Male, 81 years old. Pre-op, shortness of breath. TECHNIQUE: PA and lateral views of the chest. COMPARISON: March 04, 2017. FINDINGS: The lungs appear hypoexpanded. There is no mass or infiltrate within the lungs. There is no demonstrated pleural abnormality. The heart is borderline enlarged. Normal mediastinum and cruzito. Normal visualized pulmonary arteries. There is mild atherosclerotic calcification of the aortic arch with tortuosity. There are diffuse degenerative changes of the visualized thoracic spine. Normal visualized ribs, clavicles, and shoulders. There is no demonstrated abnormality of the visualized soft tissue structures of the upper abdomen. RAD/Chest PA and Lateral IMPRESSION: Cardiomegaly without acute pulmonary disease or major interval change. Electronically Signed: Juan J Machuca DO at 17:11 EDT Tel [phone], Service support ,
[2017-08-28 11:04] LABS: Anion Gap 9 (5-15); BUN 16 mg/dL (7-18); BUN/Creat Ratio 16.5 RATIO (10-20); Calcium,Total 8.5 mg/dL (8.5-10.1); Chloride 109 mmol/L (98-107); Creatinine, Serum 0.97 mg/dL (0.70-1.30); EST Glomerular Filtration Rate 79 mL/min (>60); Est Glom Filt Rate - Afr Amer 96 mL/min (>60); Glucose 108 mg/dL (74-106); Sodium Level 141 mmol/L (136-145)
[2017-08-28 11:06] LABS: Anisocytosis 1+; Hypochromasia 1+; Microcytosis 1+; Platelet Estimate ADEQUATE (ADEQ)
== END ==
PROVIDERS: Family Provider Family Medicine; PCP Family Medicine; Visit Provider Internal Medicine Cardiovascular Disease
DX: R06.02 Shortness of breath (principal); R06.00 Dyspnea, unspecified; I25.10 Atherosclerotic heart disease of native coronary artery without angina pectoris; R00.2 Palpitations; I48.0 Paroxysmal atrial fibrillation; E78.5 Hyperlipidemia, unspecified; Z79.899 Other long term (current) drug therapy
CPT/HCPCS: 36415; 71046; 80048; 85025; 85610; 85730

== ENCOUNTER 2017-08-29 08:00 | Outpatient (RCR) | payer MEDICARE, OTHER, SELFPAY ==
[2017-03-06 15:16] VITALS: BMI 49.1
--- NOTE | 2017-08-15 08:55 | HP.PTEVAL ---
Patient's Visit Information CELINE RODRIGUEZ is a 81 year old M referred to Physical Therapy by Amado Schreiber DO with a diagnosis of L rot cuff tear. Date of Evaluation: 08/15/17 Physical Therapist: Zachary Conrad PT, - Visit Plan Frequency: 2-3x /Week Duration: 3 Weeks Plan: R shoulder strengthening (rot cuff), overhead pulleys, scap stab ex's, UBE, and HEP - Subjective Subjective: DOI: 04/11/17. Pt reports he stepped off a curb and fell, landing on his R shoulder. Pt reports he had xrays and an MRI which revealed a torn rotator cuff in his R shoulder. 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 Pt notes an extensive Hx of R shoulder pain dating back to 55 years ago while he was playing softball and fell on his shoulder. No T or N in R UE. Sleep diff secondary to pain. Pt is R hand dom. Pt reports he likes to golf at this time of year, but he cant secondary to pain. Pt reports all overhead activity is diff secondary to pain. Pt reports resting and heat, along with pain meds, helps a little bit. 3/10 at rest, 8/10 at worst (performing activity throughout the day) - Pain R shoulder Pain Intensity (Out of 10): 3 Pain Intensity Range: 8 - Objective Neuro: B UE sensation is WNL to light touch. B bicepital reflex= 1/3. Palpation: Pt is sore along the distribution of the supraspinatus tendon. No obvious deformity. ROM: L shoulder flex= 160, abd= 125, ER= 15, ADD WNL; R shoulder flex= 45, abd= 40, ER= 35, IR Min limited. MMT: R shoulder is 1/5 and painful with all testing. L shoulder is 5/5 throughout. Special tests: pos empty can sign - Goals Goal 1:: Decrease R shoulder pain x 50% to aid with sleep Goal Time Frame: 4-6 Weeks Goal 2:: Increase R shoulder flex and abd ROM x 40 degrees to aid with overhead lifting Goal Time Frame: 4-6 Weeks Goal 3:: Increase R shoulder strength x 1 grade to aid with IADL's Goal Time Frame: 4-6 Weeks Goal 4:: I with HEP Goal Time Frame: 4-6 Weeks - Rehabilitation Potential Physical Therapy Diagnosis: L shoulder pain, weakness, and limited ROM secondary to a tear of the R rot cuff. Rehabilitation Potential: Good - Anticipated Interventions Patient/Client Instruction: Educate patient on: Condition, Plan of Care For the Purpose of:: To improve self management Therapeutic Exercise to Include: Strength training, Endurance training, Active ROM, Scapular Strength/Stabilization For the Purpose of:: To decrease pain, To increase ROM, To improve muscle performance and motor function Cryotherapy (ice pack, ice massage): Yes For the Purpose of:: To decrease pain Thank you for the opportunity to evaluate your patient. For Medicare and Medicare HMO plans, please review the plan of care and approve it. It will need to be FAXED BACK to us at [phone] for Medicare purposes. Please let me know if there are questions or concerns regarding this plan of care. Physician Signature: Date:
--- NOTE | 2017-11-15 07:28 | HP.PT.NRP ---
HP - Discharge Summary (1) - Patient Information CELINE RODRIGUEZ was seen in my office for initial evaluation on 08/15/17. The following Plan of Care was established for this patient: Initial Frequency: 2-3x /Week Initial Duration: 3 Weeks - Anticipated Interventions Patient/Client Instruction: Educate patient on: Condition, Plan of Care For the Purpose of:: To improve self management Therapeutic Exercise to Include: Strength training, Endurance training, Active ROM, Scapular Strength/Stabilization For the Purpose of:: To decrease pain, To increase ROM, To improve muscle performance and motor function Cryotherapy (ice pack, ice massage): Yes For the Purpose of:: To decrease pain This patient was last seen in our office . Pertinent comments regarding their Physical therapy will appear below: Pt was treated for 5 PT visits for his L shoulder pain through the date of 08/29/17. Pt has not returned since that date, and is therefore discontinued at this time. At this point I will be discontinuing this patient from physical therapy. I would be happy to see this patient again in the future if found appropriate by the physician. Thank you! Zachary Conrad, PT,
== END 2017-08-29 19:00 | disposition home or self-care (01) ==
LOC: PT 08:00
PROVIDERS: Family Provider Family Medicine; PCP Family Medicine; Visit Provider Orthopaedic Surgery
DX: S46.011D Strain of muscle(s) and tendon(s) of the rotator cuff of right shoulder, subsequent encounter (principal); M75.41 Impingement syndrome of right shoulder; M19.011 Primary osteoarthritis, right shoulder
CPT/HCPCS: 97110; 97161

== ENCOUNTER 2017-09-01 08:55 | Day surgery (SDC) | payer MEDICARE, OTHER, SELFPAY ==
[2017-03-06 15:16] VITALS: BMI 49.1
[2017-08-31 08:15] VITALS: BMI 36.1
[2017-09-01] VITALS (28 sets, daily range): BP systolic 132–167; BP diastolic 65–83; PULSE 62–83; RESP 16–24; TEMP 36.3–36.8; O2SAT 93–100; BMI 36.1
[2017-09-01 13:10] LABS: ACT Activated Clotting Time 175 sec (74-137)
[2017-09-01] MEDS: 0.9% Normal Saline 1,000 ML 100 ML IV (13:57)
[2017-09-01 14:24] LABS: M R Staph aureus DNA By PCR Negative (Negative); Probe Check PASS; Specimen Processing Control PASS
--- NOTE | 2017-09-01 14:29 | CL.I_ITS ---
Patient Name: CELINE RODRIGUEZ Study Date: 09/01/2017 Performing: Michelle Whitaker MD Ht: 67 inches 170 cm : 1935 Wt: 231.8 lbs 105 kg Age: 81 Gender: male BSA: 2.15 PROCEDURE(S) PERFORMED [id number] W OR WO PTCA, SINGLE CORONARY ARTERY [id number] CLINICAL PROFILE AND CO-MORBIDITIES Heart Failure: None Angina Classification Anginal Classification w/in 2 Weeks: CCS III CAD Presentations: Stable angina. DEMPSEY - Angina equivalent CONCLUSIONS iFR Mid LAD 0.87 Successful MADHURI Mid LAD using Elunir 2.5x33 mm, post-dilated using 2.75 mm balloon RECOMMENDATIONS ASA Indefinitley Plavix for at least 12 months Follow up with Dr. Babcock DESCRIPTION OF PROCEDURE The patient arrived to the procedure lab. The risks and benefits of the procedure as well as a full d escription of our services here and current unavailability of surgical backup were fully explained to the patient and/or their significant other prior to the catheterization. The Timeout was completed, verifying the correct patient and procedure. The patient's procedural site was prepped and draped in the usual fashion. Local anesthetic was given subcutaneously to right radial region with Lidocaine 2% Using a modified Seldinger technique,arterial access was obtained via the right radial artery, a 6Fr sheath was inserted. Right Coronary Artery selective angiography was then performed in multiple view s using a 5 Fr. 4.0 [place] catheter. Left Coronary Artery selective angiography was performed in multi ple views using a 5 Fr. 4.0 [place] catheter.The images were reviewed and options discussed. A decision was then made to proceed with an Intervention, IVUS or other adjunct procedure. XB3.0 Guide catheter was inserted and engaged into the LCA. ffr Guide wire was advanced to the LAD. G uide catheter was exchanged for a xb 3.5 The FFR/iFR wire was inserted. Pressures and FFR/iFR were th en recorded. iFR Ratio: .90 iFR Ratio: .89 iFR Ratio: .90 iFR Ratio: .89 Angiogram performed pre sten t deployment. eLUNIR 2.5X33 Drug Eluting stent was advanced across the lesion in the LAD, mid. Angiog elma performed post stent deployment. nc eMERGE 2.75X33 Balloon catheter was inserted post stent. Tri ogram performed post balloon dilatation. Angiogram performed post balloon dilatation. The arterial sheath was pulled and a TR Band was applied for hemostasis INTERVENTION INFORMATION LESION SITE: LAD (Mid) Lesion Complexity: High/C Pre Stenosis: 80 % Pre intervention KATHY flow: 3 PROCEDURE: iFR, Drug Eluting Stent Post Stenosis: 0 % Post intervention KATHY flow: 3 Lesion Devices: Cordis 6 Fr XB3.0 100cm Guide Catheter Sebastian Coronary FFR Wire Cordis 6 Fr XB3.5 100cm Guide Catheter Hernan Sci NC EMERGE MR 2.75x20 BALLOON Cardinal Elunir MADHURI RX 2.5x33 COMPLICATIONS No Complications PROCEDURE MEDICATIONS Fentanyl 50 mcg IV Versed 1 mg IV Fentanyl 50 mcg IV Versed 1 mg IV Oxygen: 2 L/min via nasal cannula Heparin 8000 unit(s) IV 09/01/2017 12:06:05 Heparin 6000 unit(s) IV 09/01/2017 12:38:17 Plavix 300 mg PO 09/01/2017 12:36:59 SUMMARY OF HEMODYNAMIC DATA Time AIR REST ECG 09:24:29 ECG 11:15:28 AO 117/66 (88) SA 11:40:50 Signed By Michelle Whitaker MD On 09/01/2017 14:27:44 Michelle Whitaker MD
--- NOTE | 2017-09-01 14:53 | CRPHASE1 ---
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 Risk Factors/Lifestyle Smoking Status: Never smoker Hx Dyslipidemia: Yes Hx Obesity: Yes Height: 5 ft 7 in - BMI 36.2 Stress: Home/Family Risk Factor for Sedentary Lifestyle: Moderate Risk Family History: Family History (Last Reviewed 08/21/17 @ 10:25 by Ciarra Lorenzo) Mother CAD (coronary artery disease) CHF (congestive heart failure) Past Cardiac Illness: Coronary Artery Disease, Previous PCI w/Stent Phase I Education Given On:: [place], Nutrition, Antiplatelet medication Issues Affecting Care:: None Knowledge of Condition:: Yes Learning Preferences: Verbal, Written Hospital Course Presenting Symptoms:: DYSPNEA Medical/Surgical History NE:: No CAD:: Yes Diabetes:: No Hypertension:: No Dyslipidemia:: Yes Arrhythmias:: Yes - HX ATRIAL FIBRILLATION Other Medical/Surgical Issues:: PEPTIC ULCER DISEASE. ANEMIA PTCA:: Yes Discharge/Home/Social Eval Discharge Disposition: Home
--- NOTE | 2017-09-01 14:56 | CRPHASE1_ITS ---
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 Risk Factors/Lifestyle Smoking Status: Never smoker Hx Dyslipidemia: Yes Hx Obesity: Yes Height: 5 ft 7 in - BMI 36.2 Stress: Home/Family Risk Factor for Sedentary Lifestyle: Moderate Risk Family History: Family History (Last Reviewed 08/21/17 @ 10:25 by Ciarra Lorenzo) Mother CAD (coronary artery disease) CHF (congestive heart failure) Past Cardiac Illness: Coronary Artery Disease, Previous PCI w/Stent Phase I Education Given On:: [place], Nutrition, Antiplatelet medication Issues Affecting Care:: None Knowledge of Condition:: Yes Learning Preferences: Verbal, Written Hospital Course Presenting Symptoms:: DYSPNEA Medical/Surgical History MA:: No CAD:: Yes Diabetes:: No Hypertension:: No Dyslipidemia:: Yes Arrhythmias:: Yes - HX ATRIAL FIBRILLATION Other Medical/Surgical Issues:: PEPTIC ULCER DISEASE. ANEMIA PTCA:: Yes Discharge/Home/Social Eval Discharge Disposition: Home
--- NOTE | 2017-09-01 14:57 | CRPH1.INST_ITS ---
General Education CAD and cardiac anatomy and function:: Patient communicates acknowledgment Explanation of diagnoses and procedures:: Patient communicates acknowledgment Sign/Symptoms of NC:: Patient communicates acknowledgment Antiplatelet therapy: Patient communicates acknowledgment Proper use of NTG-SL: Patient communicates acknowledgment Emergency procedures and activation of EMS: Patient communicates acknowledgment Compliance of all prescribed medications: Patient communicates acknowledgment Smoking Patient Nicotine/Smoking Risk Factors Are:: Never smoked Dyslipidemia Patient Dyslipidemia Risk Factors Are:: Total Cholesterol, Triglycerides, HDL, LDL Recommendations Include:: Lipid profile not available, Reviewed NCEP/ATP guidelines, Therapeutic Lifestyle Change dietary guidelines Dyslipidemia Response Code:: Patient communicates acknowledgment Overweight/Obesity Patient Overweight/Obesity Risk Factors Are:: Obesity - > or = 30 Recommendations Include:: Weight loss of 5-10%, Reduced calorie diet, Exercise 5 -7 times/week Overweight/Obesity:: Patient communicates acknowledgment Hypertension Patient Hypertension Risk Factors Are:: No documented hx of HTN Heart Disease Patient Heart Disease Risk Factors Are:: Previous cardiac event Heart Disease Response Code:: Patient communicates acknowledgment Diabetes Patient Diabetes Risk Factors Are:: No documented hx of diabetes Metabolic Syndrome Patient Metabolic Syndrome Risk Factors Are [3 of 5]:: Waist circumference > 35 [female] or 40 [male], High triglyceride >150, Low HDL <40 [male] or < 50 [ female] Recommendations Include:: Reinforce compliance to risk factor modifications, Encouraged follow-up with Primary Care Physician Metabolic Syndrome Response Code:: Patient communicates acknowledgment Sedentary Patient Sedentary Risk Factors Are:: Lack of regular exercise Recommendations Include:: Aerobic exercise 5-7 times/week for 20-30 minutes continuously, Benefits of regular exercise, Discussed home walking program, Monitored Outpatient Cardiac Rehab Sedentary Response Code:: Patient communicates acknowledgment Stress Recommendations Include:: Identification of stressors, and assessment of coping skills, Stress management techniques Stress Response Code:: Patient communicates acknowledgment
--- NOTE | 2017-09-01 18:16 | PN.CARD_ITS ---
Subjectve: The patient is now s/p diagnostic cardiac cath and PCI of the LAD system. He appears to be resting comfortably at this time. Objective: Vital Signs Temp Pulse Resp BP Pulse Ox 97.8 F 83 16 132/69 H 100 09/01/17 16:00 09/01/17 17:00 09/01/17 17:00 09/01/17 17:00 09/01/17 17:00 Oxygen Flow Rate (L/min) 2 Oxygen Delivery Method Room Air Weight: 231 lb 0.711 oz Body Mass Index (BMI) 36.1 General: Awake, Alert, Oriented x 3, Cooperative, No Acute Distress HEENT: Atraumatic, Normocephalic, PERRL, EOMI, Sclera Non Icteric Neck: Supple, Good ROM, No JVD Lungs: Clear to auscultation Cardiovascular: Regular Rhythm, Normal S1, Normal S2 Vascular: Normal Radial Pulses Abdomen: Bowel Sounds Present, Soft, Non Tender Extremities: No Cyanosis, No Clubbing, No edema Neurological: No Focal Motor or Sensory Deficit Rhythm: sinus rhythm Cardiac Cath: please see official report PCI: please see official report Medical Necessity - Tobacco Use Smoking Status: Never smoker Assessment/Plan 1. CAD status post previous PCI now status post repeat PCI-LAD At the present time the patient appears to be doing well. He will continue to be monitored. He will continue medical management. He has been evaluated by cardiac rehabilitation. Hopefully over time this will help with respect to his symptoms of shortness of breath/dyspnea. 2. Hyperlipidemia The patient will continue lipid-lowering therapy and follow-up as deemed appropriate. 3. Hypertension The patient's blood pressure will be monitored. His medications be adjusted as needed. This note was generated with [employer] software. It may contain incorrect words, spelling, and punctuation that were not noted in checking the note before signing.
--- NOTE | 2017-09-01 19:22 | CL.D_ITS ---
Patient Name: CELINE RODRIGUEZ Study Date: 09/01/2017 Performing: Satish Babcock MD Ht: 67 inches 170 cm : 1935 Wt: 231.8 lbs 105 kg Age: 81 Gender: male BSA: 2.15 PROCEDURE(S) PERFORMED [id number], CORONARY OR GRAFT, INITIAL VESSEL [id number] W OR WO PTCA, SINGLE CORONARY ARTERY [id number] CLINICAL PROFILE AND INDICATIONS Indications: Other: Shortness of Breath, Stable Known CAD Heart Failure: None Stress/Imaging Stress Test w/SPECT MPI: Yes Result: NegativeStress Test with SPECT MPI: Negative Angina Classification Anginal Classification w/in 2 Weeks: CCS III CAD Presentations: Stable angina. DEMPSEY - Angina equivalent Other: Shortness of Breath CONCLUSIONS [place] Multivessel CAD (especially LAD and DX2) RECOMMENDATIONS Risk factor modification Medical therapy Staged for FFR and possible LAD PCI DESCRIPTION OF PROCEDURE The patient arrived to the procedure lab. The risks and benefits of the procedure as well as a full d escription of our services here and current unavailability of surgical backup were fully explained to the patient and/or their significant other prior to the catheterization. The Timeout was completed, verifying the correct patient and procedure. The patient's procedural site was prepped and draped in the usual fashion. Local anesthetic was given subcutaneously to right radial region with Lidocaine 2% . Using a modified Seldinger technique, arterial access was obtained via the right radial artery, a 6 Fr sheath was inserted. Right Coronary Artery selective angiography was then performed in multiple v iews using a 5 Fr. 4.0 [place] catheter. Left Coronary Artery selective angiography was performed in mu ltiple views using a 5 Fr. 4.0 [place] catheter.The arterial sheath was pulled and a TR Band was applie d for hemostasis CORONARY ANGIOGRAPHY DOMINANCE: Right Dominant LEFT HEART ASSESSMENT Left Ventricular Ejection Fraction: Not assessed LEFT MAIN: Mild luminal irregularities LEFT ANTERIOR DECENDING ARTERY: PROX LAD: Previously placed stent is patent MID LAD: S/P stent: Hazy: 75 % Stenosis DIAGONAL 1: Proximal - Mild luminal irregularities DIAGONAL 2: Proximal - Small caliber vessel: 75 % Stenosis CIRCUMFLEX ARTERY: Mild luminal irregularities RIGHT CORONARY ARTERY: Mild luminal irregularities COMPLICATIONS No Complications PROCEDURE MEDICATIONS Fentanyl 50 mcg IV Versed 1 mg IV Fentanyl 50 mcg IV Versed 1 mg IV Oxygen: 2 L/min via nasal cannula Heparin 8000 unit(s) IV 09/01/2017 12:06:05 Heparin 6000 unit(s) IV 09/01/2017 12:38:17 Plavix 300 mg PO 09/01/2017 12:36:59 SUMMARY OF HEMODYNAMIC DATA Time AIR REST ECG 09:24:29 ECG 11:15:28 AO 117/66 (88) SA 11:40:50 Signed By Satish Babcock MD On 09/01/2017 19:22:14 Satish Babcock MD
[2017-09-01] MEDS: Lisinopril 2.5 MG Tablet PO (22:04)
[2017-09-01] MEDS: Atorvastatin Calcium 20 MG Tablet PO (22:04)
[2017-09-01] MEDS: Metoprolol Tartrate 50 MG Tablet PO (22:04)
[2017-09-02] VITALS (12 sets, daily range): BP systolic 144–168; BP diastolic 73–89; PULSE 59–73; RESP 13–23; TEMP 36.8–37; O2SAT 95–99
[2017-09-02 05:56] LABS: Hematocrit 33.6 % (40-54); Hemoglobin 10.2 g/dl (13.0-16.5); Mean Corp Hgb Conc 30.4 g/gl (32-36); Mean Corpuscular Hgb 22.5 pg (27.0-32.0); Platelet Count 288 K/mm3 (150-450); RBC Distribution Width CV 17.4 % (11.6-14.6); RBC Distribution Width SD 45.4 fl (35.1-43.9); Red Blood Count 4.54 M/mm3 (4.6-6.2); White Blood Count 6.1 K/mm3 (4.4-11.0)
[2017-09-02 05:58] LABS: Scan Indicated on CBC? Y/N YES- FLAGS NOTED
[2017-09-02 06:20] LABS: Anion Gap 8 (5-15); BUN 15 mg/dL (7-18); Calcium,Total 8.2 mg/dL (8.5-10.1); Chloride 111 mmol/L (98-107); Creatinine, Serum 0.88 mg/dL (0.70-1.30); Differential Comment SCAN; EST Glomerular Filtration Rate 88 mL/min (>60); Est Glom Filt Rate - Afr Amer 107 mL/min (>60); Estimated Creatinine Clearance 63.64 ml/min; Glucose 106 mg/dL (74-106); Potassium 3.8 mmol/L (3.5-5.1); Sodium Level 143 mmol/L (136-145)
[2017-09-02] MEDS: Clopidogrel Bisulfate 75 MG Tablet PO (08:34)
[2017-09-02] MEDS: Metoprolol Tartrate 50 MG Tablet PO (08:34)
[2017-09-02] MEDS: Aspirin E.C. 81 MG Tablet PO (08:34)
[2017-09-02] MEDS: Lisinopril 5 MG Tablet PO (08:35)
--- NOTE | 2017-09-02 08:53 | PN.CARD_ITS ---
Subjectve: The patient is awake and alert. He denies any new acute symptoms or concerns. Objective: Vital Signs Temp Pulse Resp BP Pulse Ox 98.4 F 73 18 146/73 H 95 09/02/17 04:00 09/02/17 08:34 09/02/17 07:00 09/02/17 08:34 09/02/17 07:00 Oxygen Flow Rate (L/min) 2 Oxygen Delivery Method Room Air Weight: 228 lb Body Mass Index (BMI) 36.1 Intake and Output for Last 24 Hours 08/31/17 09/01/17 09/02/17 23:59 23:59 23:59 Intake Total 1740 / 1740 240 / 240 Output Total 475 / 475 625 / 625 Balance 1265 / 1265 -385 / -385 General: Awake, Alert, Oriented x 3, Cooperative, No Acute Distress HEENT: Atraumatic, Normocephalic, PERRL, EOMI, Sclera Non Icteric Neck: Supple, Good ROM, No JVD Lungs: Clear to auscultation Cardiovascular: Regular Rhythm, Premature Ectopic Beats, Normal S1, Normal S2 Vascular: Normal Radial Pulses Abdomen: Bowel Sounds Present, Soft, Non Tender Extremities: No Cyanosis, No Clubbing, No edema Neurological: No Focal Motor or Sensory Deficit 09/02/17 05:40: WBC 6.1, RBC 4.54 L, Hgb 10.2 L, Hct 33.6 L, MCV 74.0 L, MCH 22.5 L, MCHC 30.4 L, RDW 17.4 H, RDW Differential 45.4 H, Plt Count 288, MPV 9.0 09/02/17 05:40: Sodium 143, Potassium 3.8, Chloride 111 H, Carbon Dioxide 24.0, Anion Gap 8, BUN 15, Creatinine 0.88, Est GFR (MDRD) Af Amer 107, Est GFR (MDRD ) Non-Af 88, BUN/Creatinine Ratio 17.0, Glucose 106, Calcium 8.2 L Rhythm: EKG: ECHO: Stress Test: Cardiac Cath: PCI: CT Surgery: Holter monitor: EPS: PPM: CXR: Chest CT Scan: Medical Necessity - Tobacco Use Smoking Status: Never smoker Assessment/Plan 1. CAD status post previous PCI now status post repeat PCI-LAD At the present time the patient appears to be doing well. He will continue medical management. He has been evaluated by cardiac rehabilitation. Hopefully over time this will help with respect to his symptoms of shortness of breath/dyspnea. 2. Hyperlipidemia The patient will continue lipid-lowering therapy and follow-up as deemed appropriate. 3. Hypertension The patient's blood pressure will be monitored. His medications being adjusted. His lisinopril dose has been increased. At the present time is felt the patient could be released home for continued outpatient cardiovascular follow-up. This note was generated with [employer] dictation software. It may contain incorrect words, spelling, and punctuation that were not noted in checking the note before signing.
--- NOTE | 2017-09-02 08:53 | PCM.DC ---
- Discharge Diagnoses Current Active Problems: CAD status post LAD PCI You will use the following diet at home:: Cardiac Your food should be the consistency of: Regular Discharge Activity: May Drive - x 48 hours May shower in (days): 1 May resume sexual activity in: 2 weeks Weight Bearing Status: Weight bearing as tolerated Call your doctor if your incision/area has: Continuous Slow Oozing, Sudden Increased Bleeding, Increased Pain/ Swelling, Increased Redness, Foul Smelling Discharge, Swelling at the incision site Call your doctor if you observe: Fever of 101 or Higher, Shortness of breath, Dizziness, Fainting spells, Chest pain, Increased palpitations (irregular heartbeat) Change Dressing in (Days):: 1 Remove Dressing in (days):: 1 Cleanse incision/area with: Soap & Water Additional Instructions: [facility] Follow Up: as instructed. Lisinopril: change from 2.5 mg twice a day to 5 mg twice a day Allergies/Adverse Reactions: Allergies naphazoline HCl [From Naphcon] Allergy (Verified 08/21/17 10:22) Hives naproxen [From Naprosyn] Allergy (Verified 08/21/17 10:22) Rash Penicillins Allergy (Verified 08/21/17 10:22) Rash Medications to take at Discharge Finasteride [Proscar] 5 mg PO DAILY 02/17/13 Metoprolol Tartrate [Lopressor (beta john)] 50 mg PO BID 30 Days tab 02/20/13 Nitroglycerin [Nitrostat] 0.4 mg SUBLINGUAL PRN PRN 09/14/14 Clopidogrel Bisulfate [Plavix] 75 mg PO DAILY 04/02/15 Pantoprazole Sodium [Protonix] 40 mg PO DAILY 04/02/15 Clidinium/Chlordiazepoxide [Librax] 2.5 mg PO TID PRN PRN 03/04/17 Diphenoxylate HCl/Atropine [Diphenoxylate-Atrop 2.5-0.025] 1 tab PO DAILY PRN PRN 03/04/17 Simvastatin [Zocor] 40 mg PO QHS 03/04/17 Aspirin [Aspirin, Baby] 81 mg PO DAILY@0800 tab.chew 03/07/17 cyclobenzaprine 5 mg tablet 5 mg PO TID PRN 08/21/17 promethazine 12.5 mg tablet 12.5 mg PO Q6H PRN 08/21/17 Aspirin E.C. [Ecotrin] 81 mg PO DAILY@0800 tablet 09/02/17 Clopidogrel Bisulfate [Plavix] 75 mg PO DAILY tablet 09/02/17 Finasteride [Proscar] 5 mg PO DAILY tablet 09/02/17 Lisinopril [Zestril] 5 mg PO BID tablet 09/02/17 Metoprolol Tartrate [Lopressor (beta john)] 50 mg PO BID tablet 09/02/17 Primary Care Physician: Param Hilliard III, MD [Primary Care Provider] - Proposed Discharge Date: 09/02/17
--- NOTE | 2017-09-02 09:04 | PCM.DC.SUM ---
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) Antihyperlipidemic Paroxysmal atrial fibrillation (Chronic) Atherosclerotic heart disease of [place] coronary artery without angina pectoris (Chronic) S/P stenting to LAD in 2012; Balloon angioplasty only to ostial diagonal #2 & unsuccessful PCI to distal diagonal #2 in February 2017; Hypertension (Chronic) Hyperlipemia, mixed (Chronic) BPH (benign prostatic hyperplasia) (Chronic) Dyslipidemia (Chronic) Obesity (Chronic) PUD (peptic ulcer disease) (Chronic) 2014 when on ASA and Plavix UGI bleed (Chronic) 2014 Hospital Course and Treatment Operations: None Procedures: Cardiac catheterization, - - Cardiac intervention Summary of Care Provided: The patient is a 81 year old M who presented to [facility] valuation of progressive shortness of breath/dyspnea with diagnostic cardiac catheterization. The patient underwent diagnostic cardiac catheterization on 09/01/2017. Status post cardiac catheterization and subsequent FFR he was found to have hemodynamically significant LAD disease distal to his previous LAD stent. He subsequently underwent LAD PCI/MADHURI under the direction of Dr. Whitaker [place] [facility] [place] He was monitored in the hospital overnight without any obvious adverse events. On this day he appeared to be symptomatically and hemodynamically stable for release home for continued outpatient cardiovascular follow-up. [] Discharge Activity: May [address] - x 48 hours May shower in (days): 1 May resume sexual activity in: 2 weeks Weight Bearing Status: Weight bearing as tolerated Call your doctor if your incision/area has: Continuous Slow Oozing, Sudden Increased Bleeding, Increased Pain/ Swelling, Increased Redness, Foul Smelling Discharge, Swelling at the incision site Call your doctor if you observe: Fever of 101 or Higher, Shortness of breath, Dizziness, Fainting spells, Chest pain, Increased palpitations (irregular heartbeat) Change Dressing in (Days):: 1 Remove Dressing in (days):: 1 Cleanse incision/area with: Soap & Water Home Medications: Medications to take at Discharge Finasteride [Proscar] 5 mg PO DAILY 02/17/13 Metoprolol Tartrate [Lopressor (beta john)] 50 mg PO BID 30 Days tab 02/20/13 Nitroglycerin [Nitrostat] 0.4 mg SUBLINGUAL PRN PRN 09/14/14 Clopidogrel Bisulfate [Plavix] 75 mg PO DAILY 04/02/15 Pantoprazole Sodium [Protonix] 40 mg PO DAILY 04/02/15 Clidinium/Chlordiazepoxide [Librax] 2.5 mg PO TID PRN PRN 03/04/17 Diphenoxylate HCl/Atropine [Diphenoxylate-Atrop 2.5-0.025] 1 tab PO DAILY PRN PRN 03/04/17 Simvastatin [Zocor] 40 mg PO QHS 03/04/17 Aspirin [Aspirin, Baby] 81 mg PO DAILY@0800 tab.chew 03/07/17 cyclobenzaprine 5 mg tablet 5 mg PO TID PRN 08/21/17 promethazine 12.5 mg tablet 12.5 mg PO Q6H PRN 08/21/17 Aspirin E.C. [Ecotrin] 81 mg PO DAILY@0800 tablet 09/02/17 Clopidogrel Bisulfate [Plavix] 75 mg PO DAILY tablet 09/02/17 Finasteride [Proscar] 5 mg PO DAILY tablet 09/02/17 Lisinopril [Zestril] 5 mg PO BID tablet 09/02/17 Metoprolol Tartrate [Lopressor (beta john)] 50 mg PO BID tablet 09/02/17 Primary Care Physician: Param Hilliard III, MD [Primary Care Provider] - Additional Instructions: Medication adjustment: change Lisinopril from 2.5 mg twice a day to 5 mg twice a day. Disposition: Home Minutes spent on discharge:: 30 Patient Condition:: Stable Medical Necessity - Tobacco Use Smoking Status: Never smoker Meaningful Use Info Meaningful Use Diagnoses (Choose all that apply): None applicable
--- NOTE | 2017-09-02 09:09 | DS.PCM_ITS ---
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) Antihyperlipidemic Paroxysmal atrial fibrillation (Chronic) Atherosclerotic heart disease of [place] coronary artery without angina pectoris (Chronic) S/P stenting to LAD in 2012; Balloon angioplasty only to ostial diagonal #2 & unsuccessful PCI to distal diagonal #2 in February 2017; Hypertension (Chronic) Hyperlipemia, mixed (Chronic) BPH (benign prostatic hyperplasia) (Chronic) Dyslipidemia (Chronic) Obesity (Chronic) PUD (peptic ulcer disease) (Chronic) 2014 when on ASA and Plavix UGI bleed (Chronic) 2014 Hospital Course and Treatment Operations: None Procedures: Cardiac catheterization, - - Cardiac intervention Summary of Care Provided: The patient is a 81 year old M who presented to valuation of progressive shortness of breath/dyspnea with diagnostic cardiac catheterization. The patient underwent diagnostic cardiac catheterization on . Status post cardiac catheterization and subsequent FFR he was found to have hemodynamically significant LAD disease distal to his previous LAD stent. He subsequently underwent LAD PCI/MADHURI under the direction of Dr. Whitaker [facility]. He was monitored in the hospital overnight without any obvious adverse events. On this day he appeared to be symptomatically and hemodynamically stable for release home for continued outpatient cardiovascular follow-up. [] Discharge Activity: May Drive - x 48 hours May shower in (days): 1 May resume sexual activity in: 2 weeks Weight Bearing Status: Weight bearing as tolerated Call your doctor if your incision/area has: Continuous Slow Oozing, Sudden Increased Bleeding, Increased Pain/ Swelling, Increased Redness, Foul Smelling Discharge, Swelling at the incision site Call your doctor if you observe: Fever of 101 or Higher, Shortness of breath, Dizziness, Fainting spells, Chest pain, Increased palpitations (irregular heartbeat) Change Dressing in (Days):: 1 Remove Dressing in (days):: 1 Cleanse incision/area with: Soap & Water Home Medications: Medications to take at Discharge Finasteride [Proscar] 5 mg PO DAILY 02/17/13 Metoprolol Tartrate [Lopressor (beta john)] 50 mg PO BID 30 Days tab Nitroglycerin [Nitrostat] 0.4 mg SUBLINGUAL PRN PRN 09/14/14 Clopidogrel Bisulfate [Plavix] 75 mg PO DAILY 04/02/15 Pantoprazole Sodium [Protonix] 40 mg PO DAILY 04/02/15 Clidinium/Chlordiazepoxide [Librax] 2.5 mg PO TID PRN PRN 03/04/17 Diphenoxylate HCl/Atropine [Diphenoxylate-Atrop 2.5-0.025] 1 tab PO DAILY PRN PRN 03/04/17 Simvastatin [Zocor] 40 mg PO QHS 03/04/17 Aspirin [Aspirin, Baby] 81 mg PO DAILY@0800 tab.chew 03/07/17 cyclobenzaprine 5 mg tablet 5 mg PO TID PRN 08/21/17 promethazine 12.5 mg tablet 12.5 mg PO Q6H PRN 08/21/17 Aspirin E.C. [Ecotrin] 81 mg PO DAILY@0800 tablet 09/02/17 Clopidogrel Bisulfate [Plavix] 75 mg PO DAILY tablet 09/02/17 Finasteride [Proscar] 5 mg PO DAILY tablet 09/02/17 Lisinopril [Zestril] 5 mg PO BID tablet 09/02/17 Metoprolol Tartrate [Lopressor (beta john)] 50 mg PO BID tablet 09/02/17 Primary Care Physician: Param Hilliard III, MD [Primary Care Provider] - Additional Instructions: Medication adjustment: change Lisinopril from 2.5 mg twice a day to 5 mg twice a day. Disposition: Home Minutes spent on discharge:: 30 Patient Condition:: Stable Medical Necessity - Tobacco Use Smoking Status: Never smoker Meaningful Use Info Meaningful Use Diagnoses (Choose all that apply): None applicable
== END 2017-09-02 09:45 | disposition home or self-care (01) ==
LOC: CLSP 08:56 → ICU 12:51
PROVIDERS: Internal Medicine Cardiovascular Disease; Family Provider Family Medicine; PCP Family Medicine; Visit Provider Internal Medicine Cardiovascular Disease
DX: I25.118 Atherosclerotic heart disease of native coronary artery with other forms of angina pectoris (principal); I48.0 Paroxysmal atrial fibrillation; D64.9 Anemia, unspecified; E78.2 Mixed hyperlipidemia; K27.9 Peptic ulcer, site unspecified, unspecified as acute or chronic, without hemorrhage or perforation; N40.0 Benign prostatic hyperplasia without lower urinary tract symptoms; E66.9 Obesity, unspecified; Z79.02 Long term (current) use of antithrombotics/antiplatelets; Z79.82 Long term (current) use of aspirin; Z79.899 Other long term (current) drug therapy; I25.2 Old myocardial infarction; Z87.19 Personal history of other diseases of the digestive system; Z95.5 Presence of coronary angioplasty implant and graft
CPT/HCPCS: 80048; 85027; 85347; 87641; 92928; 93005; 93454; 93458; 93571; 99152; 99153; J7030; J7040; Q9967; C1725; C1769; C1874; C1887; C1894; C9600

== ENCOUNTER → 2017-09-12 11:42 | Outpatient (CLI) | payer MEDICARE, OTHER, SELFPAY ==
[2017-03-06 15:16] VITALS: BMI 49.1
--- NOTE | 2017-09-12 11:42 | DT_ITS ---
This patient was seen during an EMR downtime September 11, 2017 - September 18, 2017. This patient may have a combination of paper and electronic documentation or all paper documentation. All documentation is viewable within the e-chart portion of [facility] for each patient visit.
--- NOTE | 2017-09-18 13:21 | STRESSREP ---
Stress Test Report Date: 09/12/2017 Procedure: Exercise tolerance test Indications: CAD; status post PCI; precardiac rehabilitation Consent: Per the patient Procedure: The patient exercised on a Franklyn protocol for 5 minutes and 30 seconds completing Stage I and 2 minutes and 30 seconds of Stage II achieving a peak heart rate of 120 bpm (85 % predicted maximal heart rate) with a peak blood pressure 160/60 mmHg and a peak MET capacity of approximately 7 MET's. The baseline ECG demonstrated normal sinus rhythm. The peak exercise ECG demonstrated somatic/motion artifact with no obvious ECG changes. There were occasional PVCs during exercise and recovery. The functional capacity was considered average. The patient had no complaint of chest discomfort during exercise or recovery. The examination was discontinued secondary to dyspnea. Impression: 1. Technically adequate (percent predicted maximal heart rate greater than 85%) exercise tolerance test 2. Peak exercise ECG with somatic/motion artifact with no obvious ECG changes. 3. Occasional PVCs during exercise and recovery. Comment / Disclaimer: The official exercise tolerance test report was delayed secondary to [facility] Information Systems technical issues. This note was generated with [employer] software. It may contain incorrect words, spelling, and punctuation that were not noted in checking the note before signing.
--- NOTE | 2017-09-18 13:24 | STRESSREP_ITS ---
Stress Test Report Date: 09/12/2017 Procedure: Exercise tolerance test Indications: CAD; status post PCI; precardiac rehabilitation Consent: Per the patient Procedure: The patient exercised on a Franklyn protocol for 5 minutes and 30 seconds completing Stage I and 2 minutes and 30 seconds of Stage II achieving a peak heart rate of 120 bpm (85 % predicted maximal heart rate) with a peak blood pressure 160/60 mmHg and a peak MET capacity of approximately 7 MET's. The baseline ECG demonstrated normal sinus rhythm. The peak exercise ECG demonstrated somatic/motion artifact with no obvious ECG changes. There were occasional PVCs during exercise and recovery. The functional capacity was considered average. The patient had no complaint of chest discomfort during exercise or recovery. The examination was discontinued secondary to dyspnea. Impression: 1. Technically adequate (percent predicted maximal heart rate greater than 85% ) exercise tolerance test 2. Peak exercise ECG with somatic/motion artifact with no obvious ECG changes. 3. Occasional PVCs during exercise and recovery. Comment / Disclaimer: The official exercise tolerance test report was delayed secondary to [facility] Information Systems technical issues. This note was generated with [employer] software. It may contain incorrect words, spelling, and punctuation that were not noted in checking the note before signing.
== END ==
PROVIDERS: Family Provider Family Medicine; PCP Family Medicine; Visit Provider Internal Medicine Cardiovascular Disease
DX: I25.10 Atherosclerotic heart disease of native coronary artery without angina pectoris (principal); Z95.5 Presence of coronary angioplasty implant and graft
CPT/HCPCS: 93017

== ENCOUNTER 2018-07-20 08:00 | Outpatient (RCR) | payer MEDICARE, OTHER, SELFPAY ==
[2017-03-06 15:16] VITALS: BMI 49.1
[2018-02-22 09:16] VITALS: BMI 36.8
--- NOTE | 2018-06-29 08:05 | HP.PTEVAL_ITS ---
Patient's Visit Information CELINE RODRIGUEZ is a 82 year old M referred to Physical Therapy by Alfred Haynes with a diagnosis of LBP. Date of Evaluation: 06/29/18 Physical Therapist: Zachary Conrad, PT, ATC - Visit Plan Frequency: 2x /Week Duration: 1 Week Plan: Develope and review HEP for DDD L/S - Subjective Findings: Pt reports he has had chronic LBP for years. Pt reports his pain has progressively worsened over the last 4 weeks. Pt reports he attempted to golf 2 days ago and his LBP became severe. Pt reports he almost needed to use his cane because of the severity of his pain. Pt reports his pain will radiate into his L LE all the way down to his ankle region at times. Pain is only radiating to his hip today. Pt reports stair negotiation and occasionally prolonged ambulation will cause his LBP to worsen. Pt reports he received an injection a week ago that did help some, but hasnt stopped his pain. No recent Dx tests. Pt reports occasional sleep difficulty secondary to pain. Pt reports nothing really helps to decrease his pain. 3/10 pain at rest, 9/10 at worst. - Pain LBP Pain Intensity (Out of 10): 3 Pain Intensity Range: 9 - Objective Neuro: B LE sensation is WNL to light touch. B LE patellar tendon reflex= 2/3. MMT: B LE MMT 5/5 throughout with the exception of B hip add= 4/5. ROM: Pt is moderately limited in all planes. No pain is provoked today with movement. Repeated movements: SKTC/DKTC for 10 sec, 3 reps ea had no effect during or after the movement. - Goals Goal 1:: I with HEP in 2-3 visits Goal Time Frame: 1 Week - Rehabilitation Potential Physical Therapy Diagnosis: Pt has LBP, R LE radiculopathy, and limited ROM in the L/S secondary to deg changes in the L/S Rehabilitation Potential: Good - Anticipated Interventions Patient/Client Instruction: Educate patient on: Condition, Plan of Care For the Purpose of:: To improve self management Therapeutic Exercise to Include: Strength training, Endurance training, Body mechanics, Postural training, Dynamic Lumbar Stabilization For the Purpose of:: To decrease pain, To increase ROM, To improve muscle performance and motor function Thermo therapy (hot pack): Yes For the Purpose of:: To decrease pain Thank you for the opportunity to evaluate your patient. For Medicare and Medicare HMO plans, please review the plan of care and approve it. It will need to be FAXED BACK to us at [phone] for Medicare purposes. For Medicare only, by signing this I certify the plan of care. Please let me know if there are questions or concerns regarding this plan of care. Physician Sig nature: Date:
--- NOTE | 2018-10-25 11:47 | HP.PT.NRP ---
HP - Discharge Summary (1) - Patient Information CELINE RODRIGUEZ was seen in my office for initial evaluation on 06/29/18. The following Plan of Care was established for this patient: Initial Frequency: 2x /Week Initial Duration: 1 Week - Anticipated Interventions Patient/Client Instruction: Educate patient on: Condition, Plan of Care For the Purpose of:: To improve self management Therapeutic Exercise to Include: Strength training, Endurance training, Body mechanics, Postural training, Dynamic Lumbar Stabilization For the Purpose of:: To decrease pain, To increase ROM, To improve muscle performance and motor function Thermo therapy (hot pack): Yes For the Purpose of:: To decrease pain This patient was last seen in our office . Pertinent comments regarding their Physical therapy will appear below: Pt was treated for 5 PT visits for his LBP through the date of 07/20/18. Pt has not returned at this time and is discontinued from PT At this point I will be discontinuing this patient from physical therapy. I would be happy to see this patient again in the future if found appropriate by the physician. Thank you! Zachary Conrad, PT, ATC
== END 2018-07-20 19:00 | disposition home or self-care (01) ==
LOC: PT 08:00
PROVIDERS: Family Provider Family Medicine; PCP Family Medicine; Referring Provider Family Medicine; Visit Provider Family Medicine
DX: M51.36 Other intervertebral disc degeneration, lumbar region (principal); M47.816 Spondylosis without myelopathy or radiculopathy, lumbar region
CPT/HCPCS: 97110; 97161

== ENCOUNTER 2019-01-25 08:30 | Outpatient (RCR) | payer MEDICARE, OTHER, SELFPAY ==
[2017-03-06 15:16] VITALS: BMI 49.1
[2018-09-11 09:19] VITALS: BMI 36.0
--- NOTE | 2018-12-14 11:52 | HP.PTEVAL ---
Patient's Visit Information CELINE RODRIGUEZ is a 83 year old M referred to Physical Therapy by Emeterio Santizo PA-C with a diagnosis of LUMBAR DDD. Date of Evaluation: 12/14/18 Physical Therapist: Carrie Pereyra, PT, Cert MDT - Visit Plan Frequency: 2-3x /Week Duration: 4-6 Weeks Plan: AQUATIC THERAPY FOR PAIN RELEIF, POSTURE CORRECTION/STRENGTHENING, INSTRUCTION IN APPROPRIATE BODY MECHANICS AND ACTIVITY MODIFICATIONS. DLS STARTING WITH A NEUTRAL SPINE PROGRESSING ROM TOLERATED. MANI LE ROM, STRETCHING AND STRENGTHENING. HEP INSTRUCTION. - Subjective Findings: Work/Leisure: RETIRED. 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 MOWS TWO ACRES. Disability: NO. Present symptoms: RIGHT LOW BACK PAIN, RIGHT HIP PAIN, RIGHT THIGH PAIN AND NUMBNESS. NO SX'S BELOW THE KNEE. NO LEFT LE SX'S. Present since: ABOUT 3-4 YEARS AGO. Pain Scale: WORST 8/10, LEAST 1/10. Currently: 6/10. Commenced as a result of: NO APPARENT REASON. Symptoms at onset: LOW BACK PAIN. 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 INCREASES THE DAY GOES ON. Better: SLEEP, ADVIL, ICY HOT. Disturbed sleep: NO. Previous history/Previous treatment: PHYSICAL THERAPY ABOUT 18 MONTHS AGO FOR THIS AND IT HELPED BUT SINCE THEN IT HAS GOT WORSE (SAW SLAVA MCLAIN AND PEYTON). COUPLE YEARS AGO HAD ZURDO'S AND IT DIDN'T HELP MUCH. CLAUDIA'T PENDING WITH DR. TA NEXT WEEK. 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 HAD A SURGICAL CONSULT WITH DR. BRISENO A FEW YEARS AGO AND HIS CONDITION WAS NOT OPERABLE AT THAT TIME BUT DR. 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 Coughing/sneezing/straining: NEGATIVE. Gait: HAS TO SLOW DOWN. USES CANE ONCE IN AWHILE. PUSHES THROUGH THE PAIN. NO FALLS BUT RIGHT SIDE GIVES OUT SOMETIMES FROM A SHARP QUICK PAIN WITH STEP. Difficulty initiating urinatin: NO. Accidents: NO. Unexplained weight loss: NO. Imaging: RECENT X-RAYS AND MRI. IMAGING PERFORMED AT [facility] REPORTS HE HAS NOT RECEIVED ANY RESULTS. MRI WAS A COUPLE WEEKS AGO. PMH: 3 HEART STENTS WITH MOST RECENT 2017. RIGHT UNREPAIRED TORN ROTATOR CUFF. REPAIRED AND UNREPAIRED HERNIAS. - Objective Sitting/Standing Posture: POOR. Lordosis: REDUCED. Lateral shift: NO. Relevant shift: N/A. Active Correction of posture: NE. Other Observations: INDEP GAIT AND TRANSFERS BUT LIMPING ON RIGHT LE. ALSO WALKS WITH INCREASED TRUNK FLEXION. Motor deficit: MANI LE'S GROSSLY 5/5 WITH MMT'INIG EXCEPT RIGHT HIP 4-/5 AND LEFT HIP 4/5. Sensory deficit: MANI LE LIGHT TOUCH SENSATION APPEARS INTACT AND SYMMETRICAL. ROM deficit: TIGHT MANI HS'S AND GASTROC SOLEUS COMPLEX'S. ALSO TIGHT HIP FLEXORS AND RIGHT HIP ROTATORS IR > ER. SOME C/O PAIN WITH RIGHT HIP IR TESTING. Reflexes: NT. Dural Signs: POSITIVE RIGHT LE. Lumbar mvmt loss: flex - MOD. ext - TRINIDAD. R SG - TRINIDAD. L SG - TRINIDAD. PATIENT WITH C/O INCREASED RIGHT HIP PAIN WITH LUMBAR RIGHT SG TESTING. Core strength: POOR. Palpation: NO ACUTE TENDERNESS WITH PALPATION OF THE LOWER THORACIC, LUMBAR, SACRAL OR BUTTOCK REGIONS BUT RIGHT GREATER TROCH AND IT BAND ARE TENDER. - Goals Goal 1:: DECREASE C/O BACK AND RIGHT LE SX'S. Goal Time Frame: 4-6 Weeks Goal 2:: IMPROVE LIFTING, WALKING, SITTING, STANDING, HOMEMAKING/YARDWORK AND RECREATIONAL (GOLF) FUNCTION. Goal Time Frame: 4-6 Weeks Goal 3:: INSTRUCT IN PROPHYLAXIS Goal Time Frame: 4-6 Weeks - Rehabilitation Potential Rehabilitation Potential: Fair - Anticipated Interventions Patient/Client Instruction: Educate patient on: Condition, Plan of Care, Risk Factors, Benefits of Fitness Program For the Purpose of:: To improve self management Therapeutic Exercise to Include: Strength training, Body mechanics, Postural training, Flexibilty training, Gait and locomotor training, In an aquatic setting, Dynamic Lumbar Stabilization For the Purpose of:: To decrease pain, To increase ROM, To improve muscle performance and motor function, To increase tolerance to activity/condition/position, To improve ability of physical actions for home/community/work/leisure, To improve gait and locomotor functions Thank you for the opportunity to evaluate your patient. For Medicare and Medicare HMO plans, please review the plan of care and approve it. It will need to be FAXED BACK to us at [phone] for Medicare purposes. For Medicare only, by signing this I certify the plan of care. Please let me know if there are questions or concerns regarding this plan of care. Physician Signature: Date:
--- NOTE | 2019-01-25 09:22 | HP.PTDCSUM ---
HP - PT D/C Summary It has been my pleasure to treat CELINE RODRIGUEZ under orders from Emeterio Santizo PA-C, for the diagnosis of LUMBAR DDD for a total of 10 visit(s). Discharge Date: Please see the following information for a summary of their discharge status. - Subjective Subjective: PATIENT REPORTS HE IS DOING MUCH BETTER. PATIENT REPORTS 75% IMPROVEMENT AND EVEN MORE THAN THAT BEFORE DOING A LOT OF YARD WORK. LAST MONDAY HAD AN ZURDO AND IT HELPED TOO. PATIENT REPORTS HE HAS BEEN ABLE TO PLAY GOLF BETTER WHICH MAKES HIM HAPPY. PATIENT REPORTS MAJOR IMPROVEMENT AT THIS POINT. - Pain R Lumbar Spine Pain Intensity (Out of 10): 4 - Overall Improvement % Improvement: 75 - Objective Objective/Function: THIS PATIENT HAS RESPONDED VERY WELL TO PT. 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 ALL GOALS HAVE BEEN MET. UPON EXAM TODAY: INDEP GAIT AND TRANSFERS WITHOUT LIMP TODAY BUT STILL WITH DECREASED CADANCE. ALSO WALKS WITH INCREASED TRUNK FLEXION. UNALBE TO FULLY CORRECT POSTURE. Motor deficit: MAIN LE'S GROSSLY 5/5 WITH MMT'INIG EXCEPT RIGHT HIP 4/5. Sensory deficit: MANI LE LIGHT TOUCH SENSATION APPEARS INTACT AND SYMMETRICAL. ROM deficit: TIGHT MANI HS'S AND GASTROC SOLEUS COMPLEX'S. NO C/O PAIN WITH RIGHT HIP IR TESTING TODAY. Reflexes: NT. Dural Signs: NEGATIVE MANI LE'S. Lumbar mvmt loss: flex - MIN. ext - TRINIDAD. R SG - TRINIDAD. L SG - TRINIDAD. PATIENT WITH C/O INCREASED LOW BACK TIGHTNESS WITH LUMBAR ROM TESTING ALL PLANES AND HS TIGHTNESS WITH FORWARD FLEXION. Core strength: POOR. OSWESTRY HAS IMPROVED FROM 16 TO 6. - Goals Goal 1:: DECREASE C/O BACK AND RIGHT LE SX'S. Goal Progress: Goal Met Goal 2:: IMPROVE LIFTING, WALKING, SITTING, STANDING, HOMEMAKING/YARDWORK AND RECREATIONAL (GOLF) FUNCTION. Goal Progress: Goal Met Goal 3:: INSTRUCT IN PROPHYLAXIS Goal Progress: Goal Met - Plan Plan: D/C TO INDEP EX. PATIENT IS AGREEABLE. - D/C Information If there are questions or concerns regarding this patient's physical therapy, please feel free to call me at [phone]. Thank you for the referral of this patient. Sincerely, Carrie Pereyra, PT, Cert MDT
== END 2019-01-25 19:00 | disposition home or self-care (01) ==
LOC: PT 08:30
PROVIDERS: Family Provider Family Medicine; PCP Family Medicine; Referring Provider Physician Assistant; Visit Provider Physician Assistant
DX: M51.36 Other intervertebral disc degeneration, lumbar region (principal)
CPT/HCPCS: 97113; 97162; 97530

== ENCOUNTER → 2019-04-29 07:49 | Outpatient (CLI) | payer MEDICARE, OTHER, SELFPAY ==
[2017-03-06 15:16] VITALS: BMI 49.1
[2019-03-29 11:44] VITALS: BMI 37.7
--- NOTE | 2019-04-29 07:50 | ECHOD_ITS ---
Reason For Study: Murmur Procedure This was a 2D Doppler, Color Flow transthoracic echocardiogram. The exam was of adequate technical quality. Exam performed in department. Left Ventricle Normal LV size. Moderate concentric left ventricular hypertrophy. Left ventricular systolic function is normal. The estimated ejection fraction is 60 %. No regional wall motion abnormalities noted. Right Ventricle Normal RV size. Normal systolic function. Atria The left atrium is mildly enlarged. Normal right atrium. No doppler evidence for ASD. Mitral Valve There is mild mitral annular calcification. Mild diffuse mitral valve thickening. Mild mitral valve prolapse. Moderate (2+) eccentric mitral valve insufficiency. Tricuspid Valve Normal tricuspid valve. Trivial tricuspid valve insufficiency. Right ventricular systolic pressure estimated to be 41 mmHg. Aortic Valve Trisinus/trileaflet aortic valve. Mild focal aortic valve calcification. Pulmonic Valve The pulmonic valve is not well visualized. Mild-Moderate (1-2+) pulmonic valve insufficiency. Great Vessels Borderline to mildly dilated aortic root. Pericardium/Pleural No pericardial effusion. MMode/2D Measurements & Calculations LVIDd: 4.8 cm IVSd: 1.4 cm Ao root diam: 4.0 cm LVIDs: 3.3 cm LVPWd: 1.7 cm LA dimension: 4.5 cm RVDd: 4.1 cm FS: 31.4 % LAV(MOD-bp): 75.5 ml LA A4 area: 23.1 cm2 RA A4 area: 20.1 cm2 LAV(MOD-bp) Indexed: 34.9 ml/m2 LAV(MOD-sp2): 81.1 ml LAV(MOD-sp4): 70.3 ml Time Measurements MV dec time: 0.25 sec Doppler Measurements & Calculations MV E max ford: 98.9 cm/sec Lat Peak E' Ford: 4.6 cm/sec Med Peak E' Ford: 5.8 cm/sec MV A max ford: 84.3 cm/sec E/E' lat: 21.6 E/E' med: 17.0 MV E/A: 1.2 MV V2 max: 113.9 cm/sec MV P1/2t max ford: 113.9 cm/sec Ao V2 max: 132.9 cm/sec MV max P.2 mmHg MV P1/2t: 93.5 msec Ao max P.1 mmHg MV V2 mean: 61.8 cm/sec MV dec slope: 356.7 cm/sec2 Ao V2 mean: 86.1 cm/sec MV mean P.8 mmHg MVA(P1/2t): 2.4 cm2 Ao mean P.5 mmHg MV V2 VTI: 39.9 cm Ao V2 VTI: 21.8 cm LV V1 max: 91.9 cm/sec PA V2 max: 67.9 cm/sec PI end-d ford: 111.1 cm/sec LV V1 max P.4 mmHg LV V1 mean P.7 mmHg LV V1 mean: 58.9 cm/sec LV V1 VTI: 18.8 cm TR max ford: 307.8 cm/sec TR max P.9 mmHg Interpretation Summary Left ventricular systolic function is normal. The estimated ejection fraction is 60 %. Moderate concentric left ventricular hypertrophy. The left atrium is mildly enlarged. There is mild mitral annular calcification. Mild diffuse mitral valve thickening. Mild mitral valve prolapse. Moderate (2+) eccentric mitral valve insufficiency. Trivial tricuspid valve insufficiency. Mild focal aortic valve calcification. Mild-Moderate (1-2+) pulmonic valve insufficiency. Borderline to mildly dilated aortic root. Right ventricular systolic pressure estimated to be 41 mmHg. Transmitral diastolic flow velocities suggest diastolic dysfunction (pseudonormal pattern). Ordering Physician: Satish Babcock Referring Physician: TABITHA Hilliard M.D. Performed By: Reed Topete RCS
== END ==
PROVIDERS: Family Provider Family Medicine; PCP Family Medicine; Referring Provider Internal Medicine Cardiovascular Disease; Visit Provider Internal Medicine Cardiovascular Disease
DX: I25.10 Atherosclerotic heart disease of native coronary artery without angina pectoris (principal)
CPT/HCPCS: 93306

== ENCOUNTER 2019-06-05 17:34 | Emergency (ER) | payer MEDICARE, OTHER, SELFPAY ==
[2017-03-06 15:16] VITALS: BMI 49.1
[2019-03-29 11:44] VITALS: BMI 37.7
[2019-06-05 17:35] VITALS: BP 134/69; PULSE 84; RESP 20; TEMP 37.6; O2SAT 92; BMI 36.9
--- NOTE | 2019-06-05 18:55 | RAD_ITS ---
STUDY: X-RAY CHEST REASON FOR EXAM: Male, 83 years old. COUGH WITH FEVER TECHNIQUE: Frontal and lateral views of the chest. COMPARISON: 08/28/2017. FINDINGS: Moderate lung volumes. Possible slight atelectasis in the lung bases. No focal infiltrates. No gross effusions. There is moderate cardiac enlargement. Normal mediastinum and cruzito. Normal visualized pulmonary arteries. There is atherosclerotic tortuosity of the aortic arch and descending thoracic aorta. There are diffuse degenerative changes of the visualized thoracic spine. Normal visualized ribs, clavicles, and shoulders. There is no demonstrated abnormality of the visualized soft tissue structures of the upper abdomen. RAD/Chest PA and Lateral IMPRESSION: Incomplete expansion of the lungs. Possible mild atelectasis in the lung bases. Moderate cardiomegaly. Electronically Signed: Monroe Velasquez MD at 19:12 EST , Service support ,
[2019-06-05 19:05] VITALS: PULSE 85; RESP 20
[2019-06-05] MEDS: Albuterol 2.5 MG/3 ML VIAL.NEB. INHALATION (19:06)
[2019-06-05 19:12] LABS: Absolute Lymphocyte Count 1.94 X10^3/uL (0.83-4.51); Absolute Neutrophil Count 9.5 X10^3/uL (2.0-7.7); Basophil# 0.06 X10^3/uL; Basophil% 0.5 % (0-1); Eosinophil# 0.17 X10^3/uL; Eosinophils% 1.3 % (0-5); Hematocrit 38.2 % (40-54); Lymphocyte # 1.94 X10^3/ul (4.0); Lymphocyte % 14.7 % (19-41); Mean Corp Hgb Conc 31.4 g/dL (32-36); Mean Corpuscular Hgb 23.3 pg (27.0-32.0); Monocyte# 1.43 X10^3/uL; Monocyte% 10.8 % (0-10); NRBC Flagged by Analyzer 0 % (0-5); Neutrophil # 9.53 X10^3/uL (2.7-7.7); Neutrophil % 72.2 % (47-70); Platelet Count 249 K/mm3 (150-450); RBC Distribution Width SD 48.7 fl (35.1-43.9); Red Blood Count 5.16 M/mm3 (4.6-6.2); White Blood Count 13.2 K/mm3 (4.4-11.0)
[2019-06-05 19:14] LABS: Anion Gap 7 (5-15); BUN 18 mg/dL (7-18); Calcium,Total 9.1 mg/dL (8.5-10.1); Chloride 106 mmol/L (98-107); EST Glomerular Filtration Rate 62 mL/min (>60); Est Glom Filt Rate - Afr Amer 75 mL/min (>60); Estimated Creatinine Clearance 45.14 ml/min; Glucose 106 mg/dL (74-106); Potassium 4.1 mmol/L (3.5-5.1); Sodium Level 137 mmol/L (136-145)
--- NOTE | 2019-06-05 20:23 | ED.DCSUM_ITS ---
- ER Visit Summary Date of Service: 06/05/19 Chief Complaint: Cough, fever History of Present Illness: The patient is a 83 M who presents with a cough and a fever. He has had this for 5 days. He states that his cough has been productive of sputum. He admits to nasal congestion with this. [facility]. They did note imaging and gave him Tessalon Perles. He is also been given at home without any relief. He feels like he is worse today. His temperature is 101.3 ?F. He did get a flu shot this year. He is a non- smoker. Physical Examination: Vital signs reviewed. HEENT exam unremarkable. Heart is regular rate and rhythm without murmurs. Lungs have diffuse expiratory wheezing. Abdomen is soft and nontender. Extremities reveal no edema. Skin exam normal. Neurologic exam normal. Test Results: Chest x-ray shows atelectasis with cardiomegaly. Lab work shows a white blood cell count 13.2. Hemoglobin 12. Influenza testing is negative Emergency Department Course and Treatment: The patient was given albuterol. He states that he feels better after having this breathing treatment. This could be a bronchitis. I do not feel it is influenza. Patient will be treated with a azithromycin due to his age and risk factors. I will also give him an albuterol inhaler at home. He will follow-up with his PCP. Treatment Plan: [] Disposition: Discharge Impression: Acute bronchitis This note was generated with [employer]ov[employer] dictation software. It may contain incorrect words, spelling, and punctuation that were not noted in review of the chart prior to signing ED Disposition - Plan for ED Patient: Disposition: Home or Assisted Living Instructions: BRONCHITIS, Antiobiotic Treatment (Adult) Prescriptions: Albuterol Inhaler [Ventolin Hfa] 1 - 2 puff INHALATION Q4H PRN PRN #1 inhaler PRN Reason: Wheezing Transmission Status: Pending to [facility]/pharmacy #[id number] Azithromycin [Zithromax] 250 mg PO DAILY #4 tab Transmission Status: Pending to [facility]/pharmacy #[id number] Referrals: Param Hilliard III, MD [Primary Care Provider] - Additional Instructions: Your prescriptions were electronically transmitted to [facility]
[2019-06-05] MEDS: Azithromycin 250 MG Tablet 500 MG PO (21:16)
[2019-06-05 21:20] VITALS: BP 141/91; PULSE 114; PULSE 123; RESP 15; RESP 16; O2SAT 97; O2SAT 98
== END 2019-06-05 21:26 | disposition home or self-care (01) ==
PROVIDERS: Emergency Provider Emergency Medicine; PCP Family Medicine
DX: J20.9 Acute bronchitis, unspecified (principal); J98.11 Atelectasis; I25.10 Atherosclerotic heart disease of native coronary artery without angina pectoris; I10 Essential (primary) hypertension; K21.9 Gastro-esophageal reflux disease without esophagitis; N40.0 Benign prostatic hyperplasia without lower urinary tract symptoms; Z79.899 Other long term (current) drug therapy; Z79.02 Long term (current) use of antithrombotics/antiplatelets; Z79.82 Long term (current) use of aspirin
CPT/HCPCS: 71046; 80048; 85025; 87804; 94640; 99282; A4216

== ENCOUNTER → 2020-07-06 07:49 | Outpatient (CLI) | payer MEDICARE, OTHER, SELFPAY ==
[2017-03-06 15:16] VITALS: BMI 49.1
[2020-06-10 14:16] VITALS: BMI 36.3
--- NOTE | 2020-07-06 07:52 | ECHOD_ITS ---
Reason For Study: Murmur Procedure This was a 2D Doppler, Color Flow transthoracic echocardiogram. Contrast injection was performed. Exam performed in department. Left Ventricle Normal LV size. Mild concentric left ventricular hypertrophy. Left ventricular systolic function is normal. The estimated ejection fraction is 65 %. No regional wall motion abnormalities noted. Right Ventricle Normal RV size. Normal systolic function. Atria The left atrium is mildly enlarged. Normal right atrium. No doppler evidence for ASD. Mitral Valve There is mild mitral annular calcification. Mild diffuse mitral valve thickening. Mild mitral valve prolapse. Moderate (2+) eccentric mitral valve insufficiency. Tricuspid Valve Normal tricuspid valve. Mild tricuspid valve insufficiency. Right ventricular systolic pressure estimated to be 42 mmHg. Aortic Valve Trisinus/trileaflet aortic valve. Mild diffuse aortic valve thickening. Mild focal aortic valve calcification. Aortic sclerosis, no stenosis. Pulmonic Valve The pulmonic valve is not well visualized. Mild-Moderate (1-2+) pulmonic valve insufficiency. Great Vessels Borderline to mildly dilated aortic root. Pericardium/Pleural No pericardial effusion. MMode/2D Measurements & Calculations LVIDd: 5.7 cm IVSd: 1.3 cm LVOT diam: 2.2 cm LVIDs: 3.6 cm LVPWd: 1.3 cm LVOT area: 3.8 cm2 RVDd: 3.4 cm FS: 37.2 % Ao root diam: 3.9 cm LAV(MOD-bp): 69.1 ml LVAd ap4: 35.4 cm2 LAV(MOD-bp) Indexed: 32.1 ml/m2 EDV(MOD-sp4): 121.6 ml LAV(MOD-sp2): 77.8 ml EDV(sp4-el): 122.7 ml LAV(MOD-sp4): 50.6 ml LVAs ap4: 19.7 cm2 ESV(MOD-sp4): 45.9 ml ESV(sp4-el): 45.9 ml EF(MOD-sp4): 62.2 % EF(sp4-el): 62.6 % SV(MOD-sp4): 75.7 ml SV(sp4-el): 76.8 ml LA A4 area: 17.2 cm2 LA dimension(2D): 4.5 cm RA A4 area: 15.2 cm2 Doppler Measurements & Calculations MV E max ford: 121.5 cm/sec Lat Peak E' Ford: 5.9 cm/sec Med Peak E' Ford: 5.0 cm/sec MV A max ford: 76.6 cm/sec E/E' lat: 20.7 E/E' med: 24.4 MV E/A: 1.6 Ao V2 max: 126.0 cm/sec LV V1 max: 77.2 cm/sec PA V2 max: 85.7 cm/sec Ao max P.3 mmHg LV V1 max P.4 mmHg Ao V2 mean: 87.6 cm/sec Ao mean P.4 mmHg Ao V2 VTI: 25.6 cm OKSANA(V,D): 2.3 cm2 PI end-d ford: 135.8 cm/sec TR max ford: 310.2 cm/sec TR max P.5 mmHg ECHO/Echo Complete Interpretation Summary Left ventricular systolic function is normal. The estimated ejection fraction is 65 %. Mild concentric left ventricular hypertrophy. The left atrium is mildly enlarged. There is mild mitral annular calcification. Mild diffuse mitral valve thickening. Mild mitral valve prolapse. Moderate (2+) eccentric mitral valve insufficiency. Mild tricuspid valve insufficiency. Aortic sclerosis, no stenosis. Mild-Moderate (1-2+) pulmonic valve insufficiency. Borderline to mildly dilated aortic root. Right ventricular systolic pressure estimated to be 42 mmHg. Transmitral diastolic flow velocities suggest diastolic dysfunction (pseudonorm al pattern). Ordering Physician: Satish Babcock Referring Physician: Param Hilliard Performed By: Yajaira Alvarez, DOMCS, RVT
== END ==
PROVIDERS: PCP Family Medicine; Referring Provider Internal Medicine Cardiovascular Disease; Visit Provider Internal Medicine Cardiovascular Disease
DX: I25.10 Atherosclerotic heart disease of native coronary artery without angina pectoris (principal); I34.1 Nonrheumatic mitral (valve) prolapse; I34.0 Nonrheumatic mitral (valve) insufficiency; E78.2 Mixed hyperlipidemia; I10 Essential (primary) hypertension; I48.0 Paroxysmal atrial fibrillation; Z95.5 Presence of coronary angioplasty implant and graft
CPT/HCPCS: 93306

== ENCOUNTER 2020-07-13 07:00 | Outpatient (RCR) | payer MEDICARE, OTHER, SELFPAY ==
[2017-03-06 15:16] VITALS: BMI 49.1
[2019-10-07 08:30] VITALS: BMI 35.4
--- NOTE | 2020-05-29 07:46 | HP.PTEVAL ---
Patient's Visit Information CELINE RODRIGUEZ is a 84 year old M referred to Physical Therapy by Dr. Param Hilliard III, MD with a diagnosis of L AC strain. Date of Evaluation: 05/29/20 Physical Therapist: Carl Ware, ALT, OCS, CSCS - Visit Plan Frequency: 3x /Week Duration: 4-6 Weeks Plan: 3x/week for 3-6 weeks. 1. US adn manual PROM to L shoulder if needed for paina nd ROM. 2. AAROM to AROM for L shoulder including scapula. 3. strengthening L scap and shoulder and scapular ROM. 4. return to function(golf swing ) exercises wehn appropriate - Subjective Slipped 0n ice getting out of truck adn landed on L elbow and jammed L shoulder. That was 10 days ago. It has hurt ever since but is improving. could not lift it for hair or shave but can now. Is R handed. Has some minor pain at rest. 2/10 at rest to 7/10 with movement. Had x rays whcih were OK. No MRI. Getting a little better. Sleep is not interrupted. Not employed is retired. Has 3 acres to mow in summer. Spends inter reading adn playing games on computer and uses R arm for that. Works out at [employer] 3-5x/week. Sometimes in water. Did arm bike this morning and can do it now it just hurts on bands and takes him longer. - Pain L shoulder. Pain Intensity (Out of 10): 1 Pain Intensity Range: 1, 6 - Objective Posture is forward head and elevated adn protracted scapula. Tender over AC joint adn supra slightly on L shoulder. `. Neck ROM WFL and without pain. Very poor scapular ROM B but not painful. + HK and neer, - external rotation lag test, - drop arm. R AROM 125 flexion and L is 100 with pain, abd 120 R and 90 L with pain, ext rotation 50 R and 40 L with pain, IR R 60 ad L 55 with some pain. PROM numbers on L slightly better and less painful. elbow and wrist strength adn ROM WFL and 4+. Shlder strength L felxion 3+ and abd 3+, ext rotation 4- painful, IR 4-. R shoulder 4 throughout. reflexes 1/3 bi and tri. sensation WNL to gross light touch in UE. - Goals Goal 1:: Full 125 flexion and 65 ext rotation without pain Goal Time Frame: 4-6 Weeks Goal 2:: Pt feel 100% back to normal UE movement withotu pain on L side Goal Time Frame: 4-6 Weeks Goal 3:: Swing golf club without pain. Goal Time Frame: 4-6 Weeks Goal 4:: Quickdash score less than 15 - Rehabilitation Potential Physical Therapy Diagnosis: L shoulder strain Rehabilitation Potential: Good - Anticipated Interventions Patient/Client Instruction: Educate patient on: Condition, Plan of Care For the Purpose of:: To decrease pain, To increase ROM, To improve muscle performance and motor function, To increase tolerance to activity/condition/position Therapeutic Exercise to Include: Strength training, Postural training, Neuromotor development, Passive ROM, Active ROM, Scapular Strength/Stabilization For the Purpose of:: To decrease pain, To increase ROM, To improve muscle performance and motor function, To increase tolerance to activity/condition/position Manual Therapy Techniques to Include: Mobilization, Passive ROM, Soft tissue mobilization For the Purpose of:: To decrease pain, To increase ROM Thermo therapy (hot pack): Yes For the Purpose of:: To improve nutrient delivery to tissue Thank you for the opportunity to evaluate your patient. For Medicare and Medicare HMO plans, please review the plan of care and approve it. It will need to be FAXED BACK to us at [phone] for Medicare purposes. For Medicare only, by signing this I certify the plan of care. Please let me know if there are questions or concerns regarding this plan of care. Physician Signature: Date:
--- NOTE | 2020-06-22 08:33 | HP.PTREVAL_ITS ---
Dr. Param Hilliard III, MD, It has been my pleasure to treat CELINE RODRIGUEZ over the last 10 visits for L AC strain. Please see the progress note below for an update on the physical therapy plan of care! Subjective: Much better. Still problems with pain. Lifting up to the side is still painful. Still gets 6/10 with lifting. Played two rounds of golf and does not have much trouble. Nothing scheduled with doctor. Has not avoided gardening but it is not time yet. Did mow law with zero turn. HEp includes cane exercises at home ext rotationa dn elevation and pulls on rubber band with purple 2x20. Also does pendulum. Objective/Function: Full aROM L shoulder flexiona dn ext rotationa dn IR. Abduction is still limited with pain at about 60 degrees, decent PROM but cannot lift against gravity without sharp pain. flexion 4- L, abduction 3 L, ext rotation 4- and IR 4. Only pain with abduction. Swinging golf club without difficulty. Overall improving function but still postiive drop arm L.Appropriate to cotninue therapy in the form of home strength and progression intermittently. Fair prognosis. Goals appropriate. Plan Plan: f/u 2-3 wees, pt to strengthen at home/gym in meanitme and call if questions. Recheck and back to doctor or progress to home diagonals if doing be tter with abduction. Goals Goal 1:: Full 125 flexion and 65 ext rotation without pain Goal Time Frame: 4-6 Weeks Goal Progress: met Goal 2:: Pt feel 100% back to normal UE movement withotu pain on L side Goal Time Frame: 4-6 Weeks Goal Progress: 25% Goal 3:: Swing golf club without pain. Goal Time Frame: 4-6 Weeks Goal Progress: Goal Met Goal 4:: Quickdash score less than 15 Goal Progress: Progressing Goal 5:: 120 degree abduction without pain to show improvement. Goal Time Frame: 2-4 Weeks Goal Progress: NEW GOAL Anticipated Interventions Patient/Client Instruction: Educate patient on: Condition, Plan of Care For the Purpose of:: To decrease pain, To increase ROM, To improve muscle performance and motor function, To increase tolerance to activity/condition/p osition Therapeutic Exercise to Include: Strength training, Postural training, Neuromotor development, Passive ROM, Active ROM, Scapular Strength/Stabilization For the Purpose of:: To decrease pain, To increase ROM, To improve muscle performance and motor function, To increase tolerance to activity/condition/position Manual Therapy Techniques to Include: Mobilization, Passive ROM, Soft tissue mobilization For the Purpose of:: To decrease pain, To increase ROM Thermo therapy (hot pack): Yes For the Purpose of:: To improve nutrient delivery to tissue Please do not hesitate to contact me at [phone] by phone or if you have questions or concerns regarding this new plan of care! Sincerely, Carl Ware, DPT, OCS, CSCS
--- NOTE | 2020-07-13 07:21 | HP.PTDCSUM_ITS ---
It has been my pleasure to treat CELINE RODRIGUEZ referred by Dr. Param Hilliard III, MD, with the diagnosis of L AC strain for a total of 11 visit(s). Discharge Date: 07/13/20 Please see the following information for a summary of their discharge status. Subjective: Gets pain tranisetly with ex. Minimal. Has seen huge improvements. 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 Activities are normal. No f/u with doctor scheduled. L shoulder. Pain Intensity (Out of 10): 1 % Improvement: 80 Objective/Function: 135 active flexion , 123 active abduction with slight discomfort. 60 ext rotation and L5 IR. Moving well and fucntionally doing fine. Has some pain with rsisted abd and ex rotation hard dcontractions sharp but transient. Overall much better and functional. Goal 1:: Full 125 flexion and 65 ext rotation without pain Goal Progress: met Goal 2:: Pt feel 100% back to normal UE movement withotu pain on L side Goal Progress: 80% Goal 3:: Swing golf club without pain. Goal Progress: Goal Met Goal 4:: Quickdash score less than 15 Goal Progress: Progressing Goal 5:: 120 degree abduction without pain to show improvement. Goal Progress: 120 Plan: d/c Discharge Comments: Pt to contact doctor if pain worsens adn continue via HEP. If there are questions or concerns regarding this patient's physical therapy, please feel free to call me at [phone]. Thank you for the referral of this patient. Sincerely, Carl Ware, DPT, OCS, CSCS
== END 2020-07-13 19:00 | disposition home or self-care (01) ==
LOC: PT 07:00
PROVIDERS: PCP Family Medicine; Referring Provider Family Medicine; Visit Provider Family Medicine
DX: S46.812D Strain of other muscles, fascia and tendons at shoulder and upper arm level, left arm, subsequent encounter (principal)
CPT/HCPCS: 97035; 97110; 97140; 97161; 97164; 97530

== ENCOUNTER → 2021-01-20 06:55 | Outpatient (CLI) | payer MEDICARE, OTHER, SELFPAY ==
[2017-03-06 15:16] VITALS: BMI 49.1
[2021-01-20 07:41] LABS: AST(SGOT) 26 U/L (15-37); Alanine Aminotransfer ALT/SGPT 24 U/L (16-61); Albumin, Serum 3.7 g/dL (3.2-5.0); Alkaline Phosphatase 76 U/L (45-117); Bilirubin, Direct 0.19 mg/dL (0.00-0.30); Cholesterol 151 mg/dL (200); Globulin 4.3 g/dL (2.2-4.2); High Density Lipoprotein 36 mg/dL; Triglycerides 201 mg/dL; Very Low Density Lipoprotein 40 mg/dL (5-40)
== END ==
PROVIDERS: Referring Provider Nurse Practitioner Family; Visit Provider Nurse Practitioner Family
DX: I25.10 Atherosclerotic heart disease of native coronary artery without angina pectoris (principal); E78.2 Mixed hyperlipidemia; Z95.5 Presence of coronary angioplasty implant and graft
CPT/HCPCS: 36415; 80061; 80076

== ENCOUNTER 2021-04-16 14:27 | Outpatient (CLI) | payer MEDICARE, OTHER, SELFPAY ==
[2017-03-06 15:16] VITALS: BMI 49.1
[2021-04-16 14:38] VITALS: BP 135/81; PULSE 85; RESP 16; TEMP 36.3; O2SAT 97; BMI 35.2
[2021-04-16] MEDS: 0.9% Saline Lock 10 ML Syringe IV (14:45)
[2021-04-16 15:16] VITALS: BP 122/76; PULSE 77; RESP 16; TEMP 36.8; O2SAT 97
[2021-04-16 16:06] VITALS: BP 131/79; PULSE 90; RESP 16; TEMP 36.8; O2SAT 95
== END 2021-04-16 23:59 | disposition home or self-care (01) ==
LOC: MS3OUT 14:27 → MS3 14:28
PROVIDERS: Referring Provider Nurse Practitioner Adult Health; Visit Provider Nurse Practitioner Adult Health
DX: Z23 Encounter for immunization (principal); U07.1 COVID-19
CPT/HCPCS: J7050; M0243; A4216; Q0244

== ENCOUNTER 2021-06-30 15:20 | Outpatient (CLI) | payer MEDICARE, OTHER, SELFPAY ==
[2017-03-06 15:16] VITALS: BMI 49.1
[2021-06-30 16:44] LABS: Anion Gap 3 (5-15); BNP,B-Type NATRIURETIC PEPTIDE 94.2 pg/mL (0-100); BUN 16 mg/dL (7-18); Calcium,Total 8.9 mg/dL (8.5-10.1); Chloride 107 mmol/L (98-107); Creatinine, Serum 1.14 mg/dL (0.70-1.30); EST Glomerular Filtration Rate 65 mL/min (>60); Est Glom Filt Rate - Afr Amer 79 mL/min (>60); Glucose 95 mg/dL (74-106); Potassium 3.9 mmol/L (3.5-5.1); Sodium Level 140 mmol/L (136-145)
== END 2021-06-30 23:59 | disposition home or self-care (01) ==
LOC: LAB 15:22
PROVIDERS: PCP Family Medicine; Referring Provider Nurse Practitioner Family; Visit Provider Nurse Practitioner Family
DX: R06.00 Dyspnea, unspecified (principal); I48.0 Paroxysmal atrial fibrillation; I34.0 Nonrheumatic mitral (valve) insufficiency; I10 Essential (primary) hypertension; I25.10 Atherosclerotic heart disease of native coronary artery without angina pectoris; E78.5 Hyperlipidemia, unspecified; Z95.5 Presence of coronary angioplasty implant and graft
CPT/HCPCS: 36415; 80048; 83880

== ENCOUNTER → 2022-01-19 | Outpatient (CLI) | payer MEDICARE, OTHER, SELFPAY ==
[2017-03-06 15:16] VITALS: BMI 49.1
--- NOTE | 2022-01-19 10:56 | ECHOCS_ITS ---
Reason For Study: MURMUR Procedure This was a 2D Doppler, Color Flow transthoracic echocardiogram. The study was technically difficult. Contrast injection was performed. Exam performed in department. Left Ventricle Normal LV size. Left ventricular systolic function is normal. The estimated ejection fraction is 65 %. Diastolic function is indeterminate. No regional wall motion abnormalities noted. Right Ventricle Normal RV size. Normal systolic function. Atria The left atrium is mildly enlarged. Normal right atrium. No doppler evidence for ASD. Mitral Valve There is mild mitral annular calcification. Extension of the mitral annular calcification onto the base of the posterior mitral valve leaflet. Mild mitral valve prolapse, posterior leaflet. Moderate (2+) eccentric mitral valve insufficiency. Tricuspid Valve Normal tricuspid valve. Mild tricuspid valve insufficiency. Right ventricular systolic pressure estimated to be 31 mmHg. Aortic Valve Trisinus/trileaflet aortic valve. Mild diffuse aortic valve thickening. Mild to moderate diffuse calcification of the aortic valve leaflets. Aortic valve sclerosis/mild aortic valve stenosis. Trivial aortic valve insufficiency. Pulmonic Valve The pulmonic valve is not well visualized. Mild (1+) pulmonic valve insufficiency. Great Vessels Borderline-mildly dilated aortic root. Pericardium/Pleural No pericardial effusion. MMode/2D Measurements & Calculations LVIDd: 4.7 cm IVSd: 1.4 cm LVOT diam: 2.1 cm LVIDs: 4.1 cm LVPWd: 2.0 cm LVOT area: 3.4 cm2 RVDd: 4.1 cm FS: 11.7 % Ao root diam: 4.0 cm LAV(MOD-sp4): 102.5 ml LA A4 area: 29.7 cm2 LA dimension(2D): 5.4 cm RA A4 area: 23.0 cm2 Time Measurements MV dec time: 0.19 sec Doppler Measurements & Calculations MV E max matthias: 123.1 cm/sec MV V2 max: 134.7 cm/sec MV dec slope: 672.7 cm/sec2 MV max P.3 mmHg MV V2 mean: 83.6 cm/sec MV mean P.3 mmHg MV V2 VTI: 23.7 cm MVA(VTI): 1.6 cm2 Ao V2 max: 123.6 cm/sec LV V1 max: 75.3 cm/sec SV(LVOT): 38.2 ml Ao max P.2 mmHg LV V1 max P.3 mmHg Ao V2 mean: 87.8 cm/sec LV V1 mean P.2 mmHg Ao mean P.6 mmHg LV V1 mean: 50.6 cm/sec Ao V2 VTI: 23.1 cm LV V1 VTI: 11.3 cm OKSANA(I,D): 1.7 cm2 OKSANA(V,D): 2.1 cm2 PA V2 max: 89.2 cm/sec TR max matthias: 264.1 cm/sec PA max PG (full): 2.1 mmHg TR max P.9 mmHg PA V2 mean: 62.6 cm/sec PA mean PG (full): 1.1 mmHg ECHO/Echo Complete W/ Contrast Interpretation Summary The study was technically difficult. Contrast injection was performed. Left ventricular systolic function is normal. The estimated ejection fraction is 65 %. The left atrium is mildly enlarged. There is mild mitral annular calcification. Extension of the mitral annular calcification onto the base of the posterior mi tral valve leaflet. Mild mitral valve prolapse, posterior leaflet Moderate (2+) eccentric mitral valve insufficiency. Mild tricuspid valve insufficiency. Aortic valve sclerosis/mild aortic valve stenosis. Trivial aortic valve insufficiency. Mild (1+) pulmonic valve insufficiency. Borderline-mildly dilated aortic root. Right ventricular systolic pressure estimated to be 31 mmHg. Diastolic function is indeterminate. Ordering Physician: Satish Babcock Referring Physician: Satish Babcock Performed By: Yolie Schmid RCS
== END | disposition home or self-care (01) ==
LOC: CVS 10:54
PROVIDERS: PCP Family Medicine; Referring Provider Internal Medicine Cardiovascular Disease; Visit Provider Internal Medicine Cardiovascular Disease
DX: I25.10 Atherosclerotic heart disease of native coronary artery without angina pectoris (principal); I34.1 Nonrheumatic mitral (valve) prolapse; I34.0 Nonrheumatic mitral (valve) insufficiency; R01.1 Cardiac murmur, unspecified
CPT/HCPCS: 93306; Q9957; A4216; C8929

== ENCOUNTER → 2022-01-21 | Outpatient (CLI) | payer MEDICARE, OTHER, SELFPAY ==
[2017-03-06 15:16] VITALS: BMI 49.1
[2022-01-21 10:52] LABS: Absolute Lymphocyte Count 1.48 X10^3/uL (0.83-4.51); Absolute Neutrophil Count 3.6 X10^3/uL (2.0-7.7); Basophil# 0.04 X10^3/uL; Basophil% 0.6 % (0-1); Eosinophil# 0.27 X10^3/uL; Eosinophils% 4.4 % (0-5); Hematocrit 45.3 % (40-54); Lymphocyte # 1.48 X10^3/ul (0.83-4.51); Mean Corp Hgb Conc 35.3 g/dL (32-36); Mean Corpuscular Hgb 31.6 pg (27.0-32.0); Mean Corpuscular Volume 89.3 fL (80-94); Mean Platelet Vol. 9.2 fl (6.2-12.0); Monocyte# 0.76 X10^3/uL; Monocyte% 12.3 % (0-10); NRBC Flagged by Analyzer 0 % (0-5); Neutrophil # 3.58 X10^3/uL (2.7-7.7); Neutrophil % 58.2 % (47-70); Platelet Count 237 K/mm3 (150-450); RBC Distribution Width CV 13.4 % (11.6-14.6); Red Blood Count 5.07 M/mm3 (4.6-6.2); White Blood Count 6.2 K/mm3 (4.4-11.0)
[2022-01-21 11:37] LABS: Anion Gap 7 (5-15); BUN 16 mg/dL (7-18); BUN/Creat Ratio 13.6 RATIO (10-20); Calcium,Total 9.3 mg/dL (8.5-10.1); Chloride 107 mmol/L (98-107); Creatinine, Serum 1.18 mg/dL (0.70-1.30); EST Glomerular Filtration Rate 63 mL/min (>60); Est Glom Filt Rate - Afr Amer 76 mL/min (>60); Glucose 107 mg/dL (74-106); Magnesium 1.7 mg/dL (1.6-2.6); Potassium 3.9 mmol/L (3.5-5.1); Sodium Level 140 mmol/L (136-145); Thyroid Stim Hormone (TSH) 1.04 uIU/mL (0.358-3.74)
== END | disposition home or self-care (01) ==
LOC: LAB 09:59
PROVIDERS: PCP Family Medicine; Visit Provider Internal Medicine Cardiovascular Disease
DX: I34.1 Nonrheumatic mitral (valve) prolapse (principal); I48.0 Paroxysmal atrial fibrillation; I34.0 Nonrheumatic mitral (valve) insufficiency; I10 Essential (primary) hypertension; I25.10 Atherosclerotic heart disease of native coronary artery without angina pectoris; E78.2 Mixed hyperlipidemia; Z95.5 Presence of coronary angioplasty implant and graft
CPT/HCPCS: 36415; 80048; 83735; 84443; 85025

== ENCOUNTER → 2022-01-27 | Outpatient (CLI) | payer MEDICARE, OTHER, SELFPAY ==
[2017-03-06 15:16] VITALS: BMI 49.1
== END | disposition home or self-care (01) ==
LOC: PSN 10:25
PROVIDERS: PCP Family Medicine; Referring Provider Internal Medicine Cardiovascular Disease; Visit Provider Internal Medicine Cardiovascular Disease
DX: I34.1 Nonrheumatic mitral (valve) prolapse (principal); I48.0 Paroxysmal atrial fibrillation; I34.0 Nonrheumatic mitral (valve) insufficiency; I10 Essential (primary) hypertension; I25.10 Atherosclerotic heart disease of native coronary artery without angina pectoris; E78.2 Mixed hyperlipidemia; Z95.5 Presence of coronary angioplasty implant and graft
CPT/HCPCS: 93225; 93226

== ENCOUNTER 2022-02-11 20:41 | Emergency (ER) | payer MEDICARE, OTHER, SELFPAY ==
[2017-03-06 15:16] VITALS: BMI 49.1
[2022-02-11 20:41] VITALS: BP 134/90; PULSE 80; RESP 18; TEMP 36.4; O2SAT 99; BMI 35.2
--- NOTE | 2022-02-11 20:48 | EKG12_ITS ---
Test Reason : CP Blood Pressure : / mmHG Vent. Rate : 089 BPM Atrial Rate : 250 BPM P-R Int : 000 ms QRS Dur : 080 ms QT Int : 360 ms P-R-T Axes : 000 -38 042 degrees QTc Int : 438 ms Atrial fibrillation Left axis deviation Abnormal ECG Confirmed by MALDONADO CENTENO MD ([id number]), editorial clerk TIMOTHY GERARD ([id number]) on 02/14/2022 11:41:23 AM Referred By: APRIL Confirmed By:MALDONADO CENTENO MD
[2022-02-11 21:02] LABS: Absolute Lymphocyte Count 2.72 X10^3/uL (0.83-4.51); Absolute Neutrophil Count 5.4 X10^3/uL (2.0-7.7); Basophil# 0.06 X10^3/uL; Basophil% 0.6 % (0-1); Eosinophil# 0.26 X10^3/uL; Eosinophils% 2.7 % (0-5); Hematocrit 43.6 % (40-54); Hemoglobin 15.4 g/dL (13.0-16.5); Lymphocyte # 2.72 X10^3/ul (0.83-4.51); Lymphocyte % 28.7 % (19-41); Mean Corp Hgb Conc 35.3 g/dL (32-36); Mean Corpuscular Volume 87.9 fL (80-94); Mean Platelet Vol. 9.2 fl (6.2-12.0); Monocyte# 1.01 X10^3/uL; Monocyte% 10.7 % (0-10); NRBC Flagged by Analyzer 0 % (0-5); Neutrophil # 5.37 X10^3/uL (2.7-7.7); Neutrophil % 56.8 % (47-70); Platelet Count 262 K/mm3 (150-450); RBC Distribution Width CV 13.3 % (11.6-14.6); RBC Distribution Width SD 42.6 fl (35.1-43.9); Red Blood Count 4.96 M/mm3 (4.6-6.2); White Blood Count 9.5 K/mm3 (4.4-11.0)
[2022-02-11 21:07] VITALS: BP 115/75; PULSE 78; RESP 22; O2SAT 93
--- NOTE | 2022-02-11 21:09 | RAD_ITS ---
INDICATION: chest pain EXAMINATION/TECHNIQUE: X-RAY - XR Chest 1 View COMPARISON: 06/05/2019. FINDINGS: LINES/DEVICES: None. LUNGS: No consolidation, edema or effusion. No pneumothorax. MEDIASTINUM AND CARDIOVASCULAR STRUCTURES: Mild cardiac enlargement. Central airways and mediastinal contour are unremarkable. BONES AND SOFT TISSUES: Unremarkable. RAD/Chest 1 View (Portable) IMPRESSION: No acute cardiopulmonary disease. Electronically Signed: Gabby Watkins MD at 21:40 EDT Reading Location ID and State: [id number] / Tel , Service support ,
[2022-02-11 21:21] LABS: Anion Gap 9 (5-15); BUN 17 mg/dL (7-18); BUN/Creat Ratio 15.2 RATIO (10-20); Calcium,Total 9.3 mg/dL (8.5-10.1); Chloride 107 mmol/L (98-107); Creatinine, Serum 1.12 mg/dL (0.70-1.30); EST Glomerular Filtration Rate 66 mL/min (>60); Est Glom Filt Rate - Afr Amer 80 mL/min (>60); Estimated Creatinine Clearance 44.31 ml/min; Glucose 113 mg/dL (74-106); Potassium 3.8 mmol/L (3.5-5.1); Sodium Level 142 mmol/L (136-145); Troponin-I HS 9 pg/mL (3.0-78.0)
[2022-02-11 22:57] LABS: Troponin-I HS 11 pg/mL (3.0-78.0)
[2022-02-11 23:22] VITALS: BP 130/75
--- NOTE | 2022-02-11 23:36 | ED.VIS.CHEST ---
HPI History of Present Illness Chief Complaint: Chest Pain Informant: patient and spouse/S.O. Narrative Narrative: 86-year-old male presenting to the emergency room with chest pain. Patient has a history of CT as well as atrial fibrillation. He states that today he did a lot of yard work including some of his neighbors. He notes a sharp intermittent pain in the left side of his chest nonradiating. No associated features with it. He eventually told his about it and they came to the emergency room. Patient states that since arriving here his pain is gotten better. [facility] Medical History Anemia Atherosclerotic heart disease of [place] coronary artery without angina pectoris BPH (benign prostatic hyperplasia) Chest discomfort Essential hypertension Gastritis GI bleed Hyperlipemia, mixed Non-rheumatic mitral regurgitation Nonrheumatic mitral (valve) prolapse Obesity Old myocardial infarction Palpitations Paroxysmal atrial fibrillation Presence of stent in coronary artery (~09/01/17) PUD (peptic ulcer disease) Shortness of breath Small bowel obstruction STEMI (ST elevation myocardial infarction) UGI bleed Home Medications chlordiazepoxide-clidinium 5 mg-2.5 mg capsule 2.5 mg PO TID PRN PRN ABD PAIN 03/04/17 [History Last Taken Unknown] diphenoxylate-atropine 2.5 mg-0.025 mg tablet 1 tab PO DAILY PRN PRN Diarrhea 03/04/17 [History Last Taken Unknown] aspirin 81 mg tablet,delayed release 81 mg PO DAILY@0800 09/02/17 [Rx Last Taken Unknown] finasteride 5 mg tablet 5 mg PO DAILY 09/02/17 [Rx Last Taken Unknown] nitroglycerin 0.4 mg sublingual tablet 0.4 mg sublingual Q5-15M PRN Chest Pain #25 tabs 06/10/20 [Rx Last Taken Unknown] pantoprazole 40 mg tablet,delayed release 40 mg PO DAILY #90 tabs 03/22/21 [Rx Last Taken Unknown] metoprolol tartrate 50 mg tablet 50 mg PO BID #180 tabs 06/30/21 [Rx Last Taken Unknown] sildenafil 50 mg tablet 50 mg PO DAILY PRN Sexual Activity 06/30/21 [History Last Taken Unknown] lisinopril 20 mg tablet 20 mg PO BID #180 tabs 10/21/21 [Rx Last Taken Unknown] simvastatin 40 mg tablet 40 mg PO QHS #90 tabs 01/20/22 [Rx Last Taken Unknown] apixaban 5 mg tablet 5 mg PO BID #60 tabs 01/21/22 [Rx Last Taken Unknown] amlodipine 2.5 mg tablet 2.5 mg PO DAILY 02/11/22 [History Last Taken Unknown] hydrochlorothiazide 25 mg tablet 25 mg PO DAILY 02/11/22 [History Last Taken Unknown] Allergy/AdvReac Type Severity Reaction Status Date / Time naphazoline HCl Allergy Hives Verified 02/11/22 20:44 [From Naphcon] naproxen [From Naprosyn] Allergy Rash Verified 02/11/22 20:44 Penicillins Allergy Rash Verified 02/11/22 20:44 Family History Mother , 93 CAD (coronary artery disease) CHF (congestive heart failure) Father , 87 Cancer Surgical History H/O colonoscopy (~03/13/04) H/O hernia repair (~04/27/04) History of appendectomy History of esophagogastroduodenoscopy (EGD) (~09/15/14) History of excision of dermoid cyst History of left heart catheterization Postsurgical percutaneous transluminal coronary angioplasty (PTCA) status Presence of coronary angioplasty implant and graft (~09/01/17) Social History Smoking Status: Never smoker alcohol intake: current alcohol intake frequency: a few times a month Alcohol type: beer and wine substance use type: does not use caffeine: Yes Type: tea Number of servings: 3 what type of physical activity do you participate in: walking, other details: cardiac rehab and additional details: [facility] frequency: 5-6 times per week duration: 45-60 minutes/day seatbelt use: always do you feel safe at home: Yes ROS ROS ED Constitutional Constitutional ED: Denies chills or weight loss Eyes Eyes: Denies change in vision or diplopia ENT ENT ED: Denies ear pain, rhinorrhea or sore throat Cardiovascular Cardiovascular: Reports chest pain; Denies orthopnea, palpitations or racing heartbeat Respiratory/Chest Respiratory/Chest: Denies cough, dyspnea or orthopnea Gastrointestinal Gastrointestinal: Denies abdominal pain, diarrhea, nausea or vomiting Genitourinary Genitourinary ED: Denies dysuria, hematuria or urinary frequency Musculoskeletal Musculoskeletal: Denies arthralgias or myalgias Integumentary Denies abscess or rash Neurologic Neurologic: Denies headache(s) or weakness Psychiatric Psychiatric: Denies anxiety, depression, suicidal ideation or suicidal thoughts Endocrine Endocrinology: Denies polydipsia, polyphagia or polyuria Allergic/Immunologic Allergic/Immunologic ED: Denies mouth swelling, tongue swelling or urticaria EXAM Physical Exam Const Vital Signs: 02/11/22 20:41 02/11/22 21:06 02/11/22 21:07 Temperature 97.6 F L Temperature Source Temporal Pulse Rate 80 78 Respiratory Rate 18 22 H Respiratory Effort Normal Non-Labored Blood Pressure 134/90 H 115/75 Blood Pressure Mean 104 88 Pulse Ox 99 93 Oxygen Delivery Method Room Air Room Air 02/11/22 23:22 Temperature Temperature Source Pulse Rate Respiratory Rate Respiratory Effort Blood Pressure 130/75 H Blood Pressure Mean Pulse Ox Oxygen Delivery Method Positive well nourished and well developed General Appearance ED: well developed HEENT Reports normocephalic, head/scalp atraumatic and moist mucous membranes Eyes PERRL and EOMs intact bilaterally Neck no lymphadenopathy, supple and no JVD Resp normal respiratory effort and clear to auscultation bilaterally Cardio regular rate, regular rhythm and no murmurs GI normal to inspection, nondistended, normoactive bowel sounds and non-tender Palpation: soft Back/Spine no CVA tenderness and normal ROM Extremity normal to inspection General Extremety ED: Negative for edema General Extremity: Negative for edema Neuro oriented x3 and CN's II-XII intact bilaterally Sensorium / Orientation: alert Motor Exam: strength 5/5 throughout Psych mental status grossly normal Mood & Affect: Negative for depressed or tearful Skin no rashes or lesions noted and no wounds Heart Score History: Slightly/Non-Suspicious ECG: Normal Age: >/= 65 years Risk Factors: >/= 3 Risk Factors or History of CAD Troponin: </= Normal Limit Score: 4 MDM MDM MDM Narrative Medical decision making narrative: 2 sets of cardiac enzymes were negative. EKG demonstrates atrial fibrillation that is rate controlled at 89 bpm. Chest x-ray is negative. I have believe the patient most likely does not have ACS. I do not think we need to go down the pulmonary embolism pathway as he is already anticoagulated not hypoxic not short of breath and not currently having any discomfort. I do not believe he has dissection. At this point I think that the patient may be discharged home return if worsening or concerns Lab Data Attestation: I reviewed the patient's lab results. Labs: Laboratory Results - last 24 hr 02/11/22 02/11/22 02/11/22 20:55 20:55 22:25 WBC 9.5 RBC 4.96 Hgb 15.4 Hct 43.6 MCV 87.9 MCH 31.0 MCHC 35.3 RDW Std Deviation 42.6 RDW Coeff of Filomena 13.3 Plt Count 262 MPV 9.2 Immature Gran % (Auto) 0.500 Neut % (Auto) 56.8 Lymph % (Auto) 28.7 Banner % (Auto) 10.7 H Eos % (Auto) 2.7 Baso % (Auto) 0.6 Absolute Neuts (auto) 5.4 Absolute Lymphs (auto) 2.72 Nucleated RBC % 0 Sodium 142 Potassium 3.8 Chloride 107 Carbon Dioxide 26.0 Anion Gap 9 BUN 17 Creatinine 1.12 Estim Creat Clear Calc 44.31 Est GFR (MDRD) Af Amer 80 Est GFR (MDRD) Non-Af 66 BUN/Creatinine Ratio 15.2 Glucose 113 H Calcium 9.3 Troponin I High Sens 9 11 Radiography Diagnostic Testing: Clinical Impression(s) from Imaging Studies Chest X-Ray 02/11/22 21:09 IMPRESSION: No acute cardiopulmonary disease. Electronically Signed: Gabby Watkins MD at 21:40 EDT Reading Location ID and State: [id number] / Tel , Service support , EKG Initial EKG: Attestation: I personally reviewed and interpreted this EKG as follows: Comments: Atrial fibrillation with a ventricular rate of 89 bpm Discharge Plan Triage Chief Complaint: Chest Pain ED Provider: Estrada Muniz Dx/Rx/DC Orders Clinical Impression: Chest pain, Atherosclerotic heart disease of [place] coronary artery without angina pectoris, Paroxysmal atrial fibrillation, Essential hypertension, Anticoagulated Instructions: ED Chest Pain, Noncardiac Prescriptions: No Action nitroglycerin 0.4 mg tablet, sublingual 0.4 mg SUBLINGUAL Q5-15M PRN (Reason: Chest Pain) Qty: 25 3RF sildenafil 50 mg tablet 50 mg PO DAILY PRN (Reason: Sexual Activity) Rx Instructions: administer 30 minutes to 4 hours before activity metoprolol tartrate 50 mg tablet 50 mg PO BID Qty: 180 3RF apixaban 5 mg tablet 5 mg PO BID Qty: 60 6RF diphenoxylate-atropine 1 EACH tablet 1 tab PO DAILY PRN PRN (Reason: Diarrhea) Label Comments: TAKE ONE TABLET BY MOUTH EVERY DAY NEEDED chlordiazepoxide-clidinium 2.5 MG capsule 2.5 mg PO TID PRN PRN (Reason: ABD PAIN) aspirin 81 MG tablet 81 mg PO DAILY@0800 0RF finasteride 5 MG tablet 5 mg PO DAILY 0RF amlodipine 2.5 mg Tablet 2.5 mg PO DAILY hydrochlorothiazide 25 mg Tablet 25 mg PO DAILY pantoprazole 40 mg tablet,delayed release (DR/EC) 40 mg PO DAILY Qty: 90 3RF lisinopril 20 mg tablet 20 mg PO BID Qty: 180 4RF simvastatin 40 mg tablet 40 mg PO QHS Qty: 90 3RF Primary Care Provider: Eduardo Lambert Referrals: Eduardo Lambert MD [Primary Care Provider] - As Needed Disposition Disposition: Home, Self Care Discharge Date/Time: 02/11/22 23:22
== END 2022-02-11 23:22 | disposition home or self-care (01) ==
PROVIDERS: Emergency Provider Emergency Medicine; PCP Family Medicine; Visit Provider Emergency Medicine
DX: I48.0 Paroxysmal atrial fibrillation (principal); I25.10 Atherosclerotic heart disease of native coronary artery without angina pectoris; E78.2 Mixed hyperlipidemia; I10 Essential (primary) hypertension; E66.9 Obesity, unspecified; I25.2 Old myocardial infarction; Z79.01 Long term (current) use of anticoagulants; Z79.82 Long term (current) use of aspirin; Z79.899 Other long term (current) drug therapy; Z95.5 Presence of coronary angioplasty implant and graft
CPT/HCPCS: 71045; 80048; 84484; 85025; 93005; 99284; A4216

== ENCOUNTER 2022-04-19 10:16 | Day surgery (SDC) | payer MEDICARE, OTHER, SELFPAY ==
[2017-03-06 15:16] VITALS: BMI 49.1
[2022-03-07 09:22] VITALS: BMI 33.8
[2022-04-15 16:14] LABS: Anion Gap 4 (5-15); BUN 23 mg/dL (7-18); BUN/Creat Ratio 17.3 RATIO (10-20); Calcium,Total 9.4 mg/dL (8.5-10.1); Chloride 103 mmol/L (98-107); Creatinine, Serum 1.33 mg/dL (0.70-1.30); EST Glomerular Filtration Rate 54 mL/min (>60); Est Glom Filt Rate - Afr Amer 66 mL/min (>60); Estimated Creatinine Clearance 38.65 ml/min; Glucose 90 mg/dL (74-106); Potassium 4.2 mmol/L (3.5-5.1); Sodium Level 138 mmol/L (136-145)
--- NOTE | 2022-04-18 19:01 | HP.PCM_ITS ---
History and Physical Date of Admission: 04/19/22 [facility] [address] [place], [place] [address] OFFICE VISIT Date of Service:? 04/15/22 MR#: [id number] Acct: [id number] Name:CELINE PAYNE Rep #: [id number] : 1935 Provider: ?ANNA Alvarez Age/Sex:? 86/M ?Location: [facility] Status: Signed HPI HPI History of Present Illness Surgical H&P: Yes Details: CELINE RODRIGUEZ, is a 86 year old white male who presents to the office today for a cardiovascular follow-up with a history of PAF, coronary artery disease with stenting to his LAD in 2012, PCI with balloon angioplasty to his ostial diagonal in February 2013, a subsequent non-ST myocardial infarction (2016), unsuccessful PCI to his distal diagonal, subsuequent abnormal stress test and follow up diagnostic heart catheterization which demonstrated worsening disease in his LAD with stenting of this in August 2017, superimposed upon a history of MVP, MR, hyperlipidemia, hypertension, and obstructive sleep apnea with CPAP therapy. He denies chest, arm, jaw, or neck discomfort.? He denies palpitations.? He denies bilateral lower extremity edema.? He denies claudication. He states bilateral lower extremity jiggers. He states shortness of breath with activity, such as going up steps. He denies shortness of breath at rest, orthopnea, or PND.? He denies chronic cough.? He denies significant, sudden weight gain.? He denies lightheadedness, dizziness, near-syncope, or syncope.? He denies blood in urine, blood in stool, or epistaxis.? He denies fever or chills.? He denies myalgia.? He states fatigue.? His exercise level has remained stable. Intake Vital Signs ? 03/07/2209:23 04/15/2312:42 Height 5 ft 7 in 5 ft 7 in Weight: 222 lb ? BMI 34.7 ? BP 122/66 H ? Blood Pressure LocationB Lt brachial ? Position Sitting ? Respiration 18 ? Pulse 69 ? Pulse Source Monitor ? Pulse Oximetry (%) 95 ? 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 Is patient in pain?: No Allergies naphazoline HCl [From Naphcon] Allergy (Verified 04/15/22 13:42) Hivesnaproxen [From Naprosyn] Allergy (Verified 04/15/22 13:42) RashPenicillins Allergy (Verified 04/15/22 13:42) Rash Medications chlordiazepoxide-clidinium 5 mg-2.5 mg capsule 2.5 mg PO TID PRN PRN ABD PAIN 03/04/17 [History Confirmed 04/15/22] diphenoxylate-atropine 2.5 mg-0.025 mg tablet 1 tab PO DAILY PRN PRN Diarrhea 03/04/17 [History Confirmed 04/15/22] aspirin 81 mg tablet,delayed release 81 mg PO DAILY@0800 09/02/17 [Rx Confirmed 04/15/22] finasteride 5 mg tablet 5 mg PO DAILY 09/02/17 [Rx Confirmed 04/15/22] nitroglycerin 0.4 mg sublingual tablet 0.4 mg sublingual Q5-15M PRN Chest Pain #25 tabs 06/10/20 [Rx Confirmed 04/15/22] metoprolol tartrate 50 mg tablet 50 mg PO BID #180 tabs 06/30/21 [Rx Confirmed 04/15/22] sildenafil 50 mg tablet 50 mg PO DAILY PRN Sexual Activity 06/30/21 [History Confirmed 04/15/22] lisinopril 20 mg tablet 20 mg PO BID #180 tabs 10/21/21 [Rx Confirmed 04/15/22] simvastatin 40 mg tablet 40 mg PO QHS #90 tabs 01/20/22 [Rx Confirmed 04/15/22] apixaban 5 mg tablet 5 mg PO BID #60 tabs 01/21/22 [Rx Confirmed 04/15/22] amlodipine 2.5 mg tablet 2.5 mg PO DAILY 02/11/22 [History Confirmed 04/15/22] hydrochlorothiazide 25 mg tablet 25 mg PO DAILY 02/11/22 [History Confirmed 04/15/22] pantoprazole 40 mg tablet,delayed release See Rx Instructions .Route .COMPLEX #90 tabs 03/16/22 [Rx Confirmed 04/15/22] magnesium 250 mg tablet 500 mg PO DAILY 04/15/22 [History Confirmed 04/15/22] PFSH Medical History?(Updated 04/15/22 @ 14:12 by Ezkeiel Alvarez GEM TECHNICIAN, GEM TECHNICIAN-C) Anemia Atherosclerotic heart disease of [place] coronary artery without angina pectoris BPH (benign prostatic hyperplasia) Chest discomfort Essential hypertension Gastritis GI bleed Hyperlipemia, mixed Non-rheumatic mitral regurgitation Nonrheumatic mitral (valve) prolapse Obesity Old myocardial infarction Palpitations Paroxysmal atrial fibrillation Persistent atrial fibrillation Presence of stent in coronary artery (~09/01/17) PUD (peptic ulcer disease) Shortness of breath Small bowel obstruction STEMI (ST elevation myocardial infarction) UGI bleed Surgical History? H/O colonoscopy (~03/13/04) H/O hernia repair (~04/27/04) History of appendectomy History of esophagogastroduodenoscopy (EGD) (~09/15/14) History of excision of dermoid cyst History of left heart catheterization Postsurgical percutaneous transluminal coronary angioplasty (PTCA) status Presence of coronary angioplasty implant and graft (~09/01/17) Family History? Mother?? ,? 93 CAD (coronary artery disease) CHF (congestive heart failure)Father?? ,? 87 Cancer Social History? Smoking Status:? Never smoker alcohol intake:? current alcohol intake frequency: a few times a month Alcohol type: beer and wine substance use type:? does not use caffeine:? Yes Type: tea Number of servings: 3 what type of physical activity do you participate in:? walking, other details: cardiac rehab and additional details: [facility] frequency:? 5-6 times per week duration:? 45-60 minutes/day seatbelt use:? always do you feel safe at home:? Yes ROS Const Const: Positive for fatigue; Negative for weakness, body ache, fever(s) or chills ENT ENT: Negative for dizziness or Nosebleed/epistaxis Cardio Chest Pain: No Palpitations: No Edema: None Muscle aches with walking: None Resp Respiratory: Positive for SOB with activity; Negative for SOB at rest, SOB orthopnea\SOB lying down, Cough or paroxysmal nocturnal dyspnea GI GI: Negative nausea, vomiting blood/hematemesis, bright, red blood in stools or black,tarry stools : Negative for hematuria or frequent nighttime urination/ nocturia Musc Musc: Negative for muscle aches/ myalgia Skin Skin: Negative non-healing lesions or rash Neuro Neuro: Negative for dizziness, lightheadedness, near syncope, syncope, orthostatic symptoms or weakness Endo Endo: Positive for fatigue Allergy Allergy/Immunology: Negative for rash Cardiology Exam Const Appearance: cooperative, healthy appearing, comfortable and no acute distress Nutritional Appearance: well nourished and obese Orientation: alert, awake and oriented x3 Head Head: normal to inspection Ears: hearing grossly normal bilaterally Nose: external nose normal Face and Sinus: face symmetric Mouth: moist mucous membranes Eyes General: appearance normal, both eyes and all related structures Eyelids: eyelids normal EOM: EOM intact bilaterally Neck Neck: normal visual inspection and no JVD Carotids: normal carotid upstroke Chest Chest inspection: normal inspection of the chest, symmetric chest movement and normal respiratory effort; Negative cough Auscultation: Bilateral: Clear to Auscultation Cardio Rate: regular rate Rhythm: irregularly irregular Heart sounds: S1 normal and S2 normal; Negative rub, gallop or murmur GI GI: normal to inspection and obese Neuro General: patient alert, patient awake, patient oriented x3 and CN's II-XI intact bilaterally Skin Skin: no rashes or lesions noted Extremities Pulses: Normal: Right Posterior Tibial Pulse, Left Posterior Tibial Pulse, Right Radial Pulse and Left Radial Pulse Lower Extremity Edema: None: Bilateral Psych Psychological: normal affect Supplemental Info Supplemental Information Echocardiogram from 01/19/2022: Interpretation Summary The study was technically difficult. Contrast injection was performed. ? Left ventricular systolic function is normal. The estimated ejection fraction is 65 %. The left atrium is mildly enlarged. There is mild mitral annular calcification. Extension of the mitral annular calcification onto the base of the posterior mitral valve leaflet. Mild mitral valve prolapse, posterior leaflet Moderate (2+) eccentric mitral valve insufficiency. Mild tricuspid valve insufficiency. Aortic valve sclerosis/mild aortic valve stenosis. Trivial aortic valve insufficiency. Mild (1+) pulmonic valve insufficiency. Borderline-mildly dilated aortic root. Right ventricular systolic pressure estimated to be 31 mmHg. Diastolic function is indeterminate. Echocardiogram from 07/06/2020: Interpretation Summary Left ventricular systolic function is normal. The estimated ejection fraction is 65 %. Mild concentric left ventricular hypertrophy. The left atrium is mildly enlarged. There is mild mitral annular calcification. Mild diffuse mitral valve thickening. Mild mitral valve prolapse. Moderate (2+) eccentric mitral valve insufficiency. Mild tricuspid valve insufficiency. Aortic sclerosis, no stenosis. Mild-Moderate (1-2+) pulmonic valve insufficiency. Borderline to mildly dilated aortic root. Right ventricular systolic pressure estimated to be 42 mmHg. Transmitral diastolic flow velocities suggest diastolic dysfunction (pseudonormal pattern). Exercise tolerance test was performed on 08/10/2017?demonstrated: ? The patient exercised on a Franklyn protocol for 7 minutes completing Stage II and 1 minute of Stage III achieving a peak heart rate of 120 bpm (85 % predicted maximal heart rate) with a peak blood pressure 178/76 mmHg and a peak MET capacity of 7 METs. ? The baseline ECG demonstrated normal sinus rhythm.? The peak exercise ECG demonstrated no obvious ECG changes. ? There was a rare PVC during recovery. ? The functional capacity was considered good. ? There was no complaint of chest discomfort during exercise or recovery. ? The examination was discontinued secondary to dyspnea. ? Impression: ? 1.? Technically adequate (percent predicted maximal heart rate greater than 85%) exercise tolerance test 2.? Peak exercise ECG with no obvious ECG changes 3.? There was a rare PVC during recovery. 4.? Nuclear images pending ? Myocardial perfusion imaging study: ? Technique: ? The patient was injected with 14.7 mCi of technetium 99m Cardiolite and subsequently rest SPECT Cardiolite nuclear imaging was obtained in the horizontal long, vertical long, and short axis views. The patient exercised on a Franklyn protocol for 7 minutes completing Stage II and 1 minute of Stage III achieving a peak heart rate of 120 bpm (85 % predicted maximal heart rate) with a peak blood pressure 178/76 mmHg and a peak MET capacity of 7 METs. The patient was injected with mCi of technetium 99m Cardiolite and subsequently stress SPECT Cardiolite nuclear imaging was obtained in the horizontal long, vertical long, and short axis views.? A gated Cardiolite study at peak stress was obtained. ? Interpretation: ? Rest and stress SPECT Cardiolite nuclear imaging status post realignment, normalization, and attenuation correction, demonstrates the appearance of relative uniform tracer uptake and myocardial perfusion appearing within normal limits.? There is end systolic thickening and brightening.? The gated Cardiolite study demonstrates myocardial thickening and inward wall motion.? The reported LVEF is 54 %. ? Impression: ? 1.? Rest and stress SPECT Cardiolite nuclear imaging demonstrate relative uniform tracer uptake and myocardial perfusion appearing within normal limits. 2.? The gated Cardiolite study reports an LVEF of 54 %. Heart catheterization from 09/01/2017: CONCLUSIONS [place] Multivessel CAD (especially LAD and DX2) RECOMMENDATIONS Risk factor modification Medical therapy Staged for FFR and possible LAD PCI CORONARY ANGIOGRAPHY DOMINANCE:? Right Dominant LEFT HEART ASSESSMENT Left Ventricular Ejection Fraction: Not assessed LEFT MAIN: Mild luminal irregularities LEFT ANTERIOR DESCENDING ARTERY: PROX LAD: Previously placed stent is patent MID LAD: S/P stent: Hazy: 75 % Stenosis DIAGONAL 1: Proximal - Mild luminal irregularities DIAGONAL 2: Proximal - Small caliber vessel: 75 % Stenosis CIRCUMFLEX ARTERY: Mild luminal irregularities RIGHT CORONARY ARTERY: Mild luminal irregularities A?PCI procedure was performed on 02/22/2013?at [facility].? The results are as noted below. Severe single vessel coronary artery disease. Successful angioplasty and successful stenting of the 80% stenosis in the proximal to mid left anterior descending artery. (Drug Eluting) He had another?PCI performed on 03/04/2017.? This included a PTCA of the ostial second diagonal branch and a failed PTCA of the distal second diagonal branch. Cardiac intervention from 09/01/2017: CONCLUSIONS iFR Mid LAD 0.87 Successful MADHURI Mid LAD using Elunir 2.5x33 mm, post-dilated using 2.75 mm balloon RECOMMENDATIONS ASA Indefinitley Plavix for at least 12 months Follow up with Dr. Babcock Holter monitor from 01/27/2022: Minimum heart rate 46 bpm. Average heart rate 82 bpm. Maximal heart 114 bpm. Ventricular ectopy 0.9%. Supraventricular ectopy 0.0%. Longest R to R interval 1.8 seconds. Atrial fibrillation 99.1% total time. The patient kept a 24-hour diary.? No activity or symptoms recorded. Labs: ?? ? No Data to Display Diagnostics: ?? ? Electrocardiogram ? Echocardiogram ? Chest X-Ray ? Pulmonary: ?? ? No Data to Display Assessment and Plan Assessment and Plan (1) Atherosclerotic heart disease of [place] coronary artery without angina pectoris: ?Status:?Chronic ?Qualifiers: ?[place] vs. transplanted heart:?[place] heart? Qualified Code(s):?I25.10 - Atherosclerotic heart disease of [place] coronary artery without angina pectoris ?Comment: S/P stenting to LAD in 2012; Balloon angioplasty only to ostial diagonal #2 & unsuccessful PCI to distal diagonal #2 in February 2017; ?Plan: At the present time he appears to be doing well with no acute symptoms or adverse events. He will continue risk factor modification and medical management as deemed appropriate. (2) Presence of stent in coronary artery: ?Status:?Chronic ?Comment: PTCA/MADHURI to prox and mid LAD 02/22/13; Balloon angioplasty only to ostial diagonal #2 & unsuccessful PCI to distal diagonal #2 in February 2017; PTCA/MADHURI to Mid LAD 09/01/17 ?Plan: He will continue risk factor and lifestyle modification.? He will continue current medical therapy with amlodipine, Eliquis, aspirin, lisinopril, metoprolol titrate, and simvastatin.? His excess and placed on hold on account of adding Eliquis therapy. (3) Paroxysmal atrial fibrillation: ?Status:?Chronic ?Plan: He underwent a Holter monitor in January 2022 that showed atrial fibrillation virtually 100% of scan.? Average heart was noted be 82 bpm.? He continues to remain in atrial fibrillation today.? His rate remains well controlled.? He will continue Eliquis therapy for CVA protection.? He will continue metoprolol th erapy for rate control. We will proceed with cardioversion.? Hopefully by maintaining sinus rhythm, he has improved energy and is less short of breath. (4) Nonrheumatic mitral (valve) prolapse: ?Status:?Acute ?Plan: He does have a history of MVP. He continues with mitral valve prolapse/regurgitation. He appears to be stable at this time. (5) Non-rheumatic mitral regurgitation: ?Status:?Acute ?Plan: His most recent echocardiogram in January 2022 showed ejection fraction of 65% and moderate mitral valve insufficiency.? There was noted be mildly enlarged left atrium.? This appears stable.? We will continue to monitor. (6) Hyperlipemia, mixed: ?Status:?Chronic ?Plan: He will continue simvastatin.? He will continue risk factor and lifestyle modification. (7) Essential hypertension: ?Status:?Chronic ?Plan: Patient's blood pressure is well-controlled.? We will continue to monitor. We will not make any medication regimen changes. ? ? ? Orders: Orders 12 Lead EKG performed by [facility] Today I48.1 9 - Other persistent atrial fibrillation ? Basic Metabolic Profile (BMP) Today I48.0 - Paroxysmal atrial fibrillation, Z01.818 - Encounter for other preprocedural examination ? Plan Details Additional Comments: Thank you for allowing us to participate in the patients plan of care, if you have any questions please do not hesitate to call. This note was generated using a voice recognition system and there may be incorrect words, spelling or punctuation that were not noted when reviewing the office note prior to saving. Portions of this documentation were copied and pasted from previous office visit notes to provide a cohesive continuity of the history. The note has been reviewed, edited, and updated, as necessary. Follow Up: ? ? 1 week ECG ? ? Keep as is (MMM) COVID (Procedure Consent) Procedure Criteria Procedure Criteria: Yes Elective The surgeon/proceduralist and patient have discussed in detail the risk of exposure to and/or potential harm posed by the COVID-19 virus with having a surgery/procedure at this time versus the risk of? delaying the surgery/procedure. It is not possible to know either the risk of delaying the surgery or procedure or chance of getting an infection with perfect accuracy, but a joint decision was made between the patient and the surgeon/proceduralist ?to proceed at this time with the scheduled surgery/procedure as indicated on the consent form. Coding Level of Care Code Off vis,est,level 3 Diagnoses Atherosclerotic heart disease of [place] coronary artery without angina pectoris? I25.10 ? ? ? [place] vs. transplanted heart: [place] heart Presence of stent in coronary artery? Z95.5 Paroxysmal atrial fibrillation? I48.0 Nonrheumatic mitral (valve) prolapse? I34.1 Non-rheumatic mitral regurgitation? I34.0 Hyperlipemia, mixed? E78.2 Essential hypertension? I10 Coding Level of Care Code Off vis,est,level 3 Diagnoses Atherosclerotic heart disease of [place] coronary artery without angina pectoris? I25.10 ? ? ? [place] vs. transplanted heart: [place] heart Presence of stent in coronary artery? Z95.5 Paroxysmal atrial fibrillation? I48.0 Nonrheumatic mitral (valve) prolapse? I34.1 Non-rheumatic mitral regurgitation? I34.0 Hyperlipemia, mixed? E78.2 Essential hypertension? I10 04/15/22 1425 <Electronically signed by Ezekiel Alvarez GEM TECHNICIAN GEM TECHNICIAN-C> Date Ezekiel Alvarez NP GEM TECHNICIAN-C Cosigner Signature: Date (if applicable) CC:? Dr. Eduardo Lambert MD ~ Assessment & Plan Addt'l Comments I have examined the patient and the H&P has been reviewed. There are no clinical changes since date of exam. This note was generated using a voice recognition system and there may be incorrect words, spelling or punctuation that were not noted when reviewing the office note prior to saving.
--- NOTE | 2022-04-19 12:47 | PCM.OP.PRO ---
Procedure Report Date of Procedure: 04/19/22 CONSCIOUS SEDATION REPORT DATE OF SERVICE: April 19, 2022 BRIEF HISTORY OF PRESENT ILLNESS: The patient is an 86-year-old male who presented to [facility] for elective outpatient cardioversion due to underlying atrial fibrillation. The patient has never previously undergone a cardioversion. However, he denies any prior anesthetic complications. He is currently anticoagulated on Eliquis. His last surface echocardiogram demonstrated an ejection fraction of approximately 60%. He denied a history of smoking, COPD or asthma. Nevertheless, he does have a known history of sleep apnea, for which he utilizes nocturnal CPAP therapy. PHYSICAL EXAMINATION: VITAL SIGNS: Reviewed and were acceptable. GENERAL: The patient is a male, in no apparent distress, speaking in full sentences. HEENT: Normocephalic, atraumatic. Mucous membranes are moist and pink. Good mouth opening noted. Trachea is midline. Good neck mobility. MPII CHEST: S1, S2 irregularly irregular. No murmurs, rubs or gallops were noted. LUNGS: Clear to auscultation bilaterally without appreciable wheezes, rales or rhonchi. ABDOMEN: Soft, nontender, nondistended. Positive bowel sounds. EXTREMITIES: There is no clubbing, cyanosis or edema. ASA Class: II DESCRIPTION OF PROCEDURE: After confirmation of informed consent, the patient's anesthesia plan was reviewed in detail. Propofol was chosen. Risks and benefits were reviewed and the patient agreed to proceed. At 1208, the patient was given 40 mg of propofol. The patient achieved an appropriate level of sedation and was given a 200 joule synchronized cardioversion by Dr. Babcock at the bedside. This was successful in achieving normal sinus rhythm. The patient was monitored until 1220, at which time he reached his baseline mental status and function. The patient tolerated the procedure well. COMPLICATIONS: None ESTIMATED BLOOD LOSS: None RECOMMENDATIONS: Okay to recover in usual fashion. Procedures Pulmonary 9xxxx: [id number] Con Sedation
--- NOTE | 2022-04-19 13:04 | CARDIOVERS ---
Cardioversion Cardioversion: Date: 04-19-2022 Procedure: Synchronized Biphasic DC Cardioversion Indications: Atrial fibrillation Consent: Per the Patient Anesthesia: per Dr. Miramontes of pulmonology and critical care medicine with propofol 40 mg IV push total Procedure: Synchronized Biphasic DC Cardioversion: 200 J x 1: Result: Sinus rhythm Complications: no apparent complications This note was generated with [employer] software. It may contain incorrect words, spelling, and punctuation that were not noted in checking the note before signing.
== END 2022-04-19 13:15 | disposition home or self-care (01) ==
LOC: CLSP 10:17
PROVIDERS: Nurse Practitioner Family; PCP Family Medicine; Referring Provider Internal Medicine Cardiovascular Disease; Visit Provider Internal Medicine Cardiovascular Disease
DX: I48.0 Paroxysmal atrial fibrillation (principal); I34.0 Nonrheumatic mitral (valve) insufficiency; I49.3 Ventricular premature depolarization; I10 Essential (primary) hypertension; E78.2 Mixed hyperlipidemia; I25.10 Atherosclerotic heart disease of native coronary artery without angina pectoris; I34.1 Nonrheumatic mitral (valve) prolapse; R94.39 Abnormal result of other cardiovascular function study; Z79.01 Long term (current) use of anticoagulants; Z79.82 Long term (current) use of aspirin; Z79.899 Other long term (current) drug therapy; Z95.5 Presence of coronary angioplasty implant and graft
CPT/HCPCS: 36415; 80048; 92960; 93005; J7040

== ENCOUNTER 2022-07-18 20:38 | Emergency (ER) | payer MEDICARE, OTHER, SELFPAY ==
[2017-03-06 15:16] VITALS: BMI 49.1
[2022-07-18 20:38] VITALS: BP 142/82; PULSE 100; RESP 18; TEMP 36.9; O2SAT 93
--- NOTE | 2022-07-18 23:23 | EX.ED.DYSGE1 ---
HPI History of Present Illness Chief Complaint: Nausea/Vomiting/Diarrhea Informant: patient Onset/Context/Timing Onset: Today Narrative Narrative: Patient presents with nausea, vomiting, and diarrhea for the last 12 hours. He complains of some body aches. At one point today he reached for his wastebasket when he was lying in bed and fell off the edge of the bed injuring his left lower ribs. He has not noted a fever. No blood in his emesis or with his stool. [facility] Medical History Anemia Atherosclerotic heart disease of [place] coronary artery without angina pectoris BPH (benign prostatic hyperplasia) Chest discomfort Essential hypertension Gastritis GI bleed Hyperlipemia, mixed Non-rheumatic mitral regurgitation Nonrheumatic mitral (valve) prolapse Obesity Old myocardial infarction Palpitations Paroxysmal atrial fibrillation Persistent atrial fibrillation Presence of stent in coronary artery (~09/01/17) PUD (peptic ulcer disease) Shortness of breath Small bowel obstruction STEMI (ST elevation myocardial infarction) UGI bleed Home Medications chlordiazepoxide-clidinium 5 mg-2.5 mg capsule 2.5 mg PO TID PRN PRN ABD PAIN 03/04/17 [History Last Taken Unknown] diphenoxylate-atropine 2.5 mg-0.025 mg tablet 1 tab PO DAILY PRN PRN Diarrhea 03/04/17 [History Last Taken Unknown] aspirin 81 mg tablet,delayed release 81 mg PO DAILY@0800 09/02/17 [Rx Last Taken 04/19/22] finasteride 5 mg tablet 5 mg PO DAILY 09/02/17 [Rx Last Taken Unknown] nitroglycerin 0.4 mg sublingual tablet 0.4 mg sublingual Q5-15M PRN Chest Pain #25 tabs 06/10/20 [Rx Last Taken Unknown] sildenafil 50 mg tablet 50 mg PO DAILY PRN Sexual Activity 06/30/21 [History Last Taken Unknown] lisinopril 20 mg tablet 20 mg PO BID #180 tabs 10/21/21 [Rx Last Taken 04/19/22] simvastatin 40 mg tablet 40 mg PO QHS #90 tabs 01/20/22 [Rx Last Taken Unknown] apixaban 5 mg tablet 5 mg PO BID #60 tabs 01/21/22 [Rx Last Taken 04/19/22] magnesium 250 mg tablet 500 mg PO DAILY 04/15/22 [History Last Taken Unknown] pantoprazole 40 mg tablet,delayed release 40 mg PO DAILY 04/18/22 [History Last Taken Unknown] Handicap Placard #1 ea 04/26/22 [Rx Last Taken Unknown] amlodipine 2.5 mg tablet 2.5 mg PO DAILY #90 tabs 07/08/22 [Rx Last Taken Unknown] hydrochlorothiazide 25 mg tablet 25 mg PO DAILY #90 tabs 07/08/22 [Rx Last Taken Unknown] metoprolol tartrate 50 mg tablet 50 mg PO BID #180 tabs 07/08/22 [Rx Last Taken Unknown] ondansetron 4 mg disintegrating tablet 4 mg PO Q8H PRN PRN Nausea #10 tabs 07/19/22 [Rx Last Taken Unknown] Allergy/AdvReac Type Severity Reaction Status Date / Time naphazoline HCl Allergy Hives Verified 07/18/22 20:40 [From Naphcon] naproxen [From Naprosyn] Allergy Rash Verified 07/18/22 20:40 Penicillins Allergy Rash Verified 07/18/22 20:40 Family History Mother , 93 CAD (coronary artery disease) CHF (congestive heart failure) Father , 87 Cancer Surgical History H/O colonoscopy (~03/13/04) H/O hernia repair (~04/27/04) History of appendectomy History of esophagogastroduodenoscopy (EGD) (~09/15/14) History of excision of dermoid cyst History of left heart catheterization Postsurgical percutaneous transluminal coronary angioplasty (PTCA) status Presence of coronary angioplasty implant and graft (~09/01/17) Social History Smoking Status: Never smoker alcohol intake: current alcohol intake frequency: a few times a month Alcohol type: beer and wine substance use type: does not use caffeine: Yes Type: tea Number of servings: 3 what type of physical activity do you participate in: walking, other details: cardiac rehab and additional details: [facility] frequency: 5-6 times per week duration: 45-60 minutes/day seatbelt use: always do you feel safe at home: Yes ROS ROS ED Constitutional Constitutional ED: Denies chills or fever(s) Eyes Eyes: Denies change in vision ENT ENT ED: Denies rhinorrhea or sore throat Cardiovascular Cardiovascular: Reports other Details: Left chest wall pain after fall ; Denies palpitations Respiratory/Chest Respiratory/Chest: Denies cough or dyspnea Gastrointestinal Gastrointestinal: Reports abdominal pain, diarrhea, nausea and vomiting Genitourinary Genitourinary ED: Denies dysuria Musculoskeletal Musculoskeletal: Denies back pain or extremity pain Integumentary Denies Abrasions or rash Neurologic Neurologic: Denies headache(s) or weakness Psychiatric Psychiatric: Denies anxiety or depression Allergic/Immunologic Allergic/Immunologic ED: Denies lip swelling or urticaria EXAM Physical Exam Const Vital Signs: 07/18/22 20:38 Temperature 98.4 F Temperature Source Temporal Pulse Rate 100 Respiratory Rate 18 Blood Pressure 142/82 H Blood Pressure Mean 102 Pulse Ox 93 Oxygen Delivery Method Room Air Positive well nourished and well developed General Appearance ED: well developed HEENT Reports normocephalic and head/scalp atraumatic Eyes PERRL and EOMs intact bilaterally Neck supple Chest Wall Chest Narrative: Mild left lateral lower rib tenderness. No crepitus. Resp normal respiratory effort and clear to auscultation bilaterally Cardio regular rate and regular rhythm Heart Sounds: murmur GI non-tender Auscultation: hypoactive bowel sounds Palpation: soft Extremity normal to inspection Neuro oriented x3 and no sensory deficits noted Sensorium / Orientation: alert Motor Exam: strength 5/5 throughout Psych mental status grossly normal Skin no rashes or lesions noted MDM MDM MDM Narrative Medical decision making narrative: Patient given IV fluids and Zofran. Labwork obtained to evaluate for leukocytosis, anemia, and electrolyte derangement. Rib series x-rays obtained given his left rib injury. Lab Data Attestation: I reviewed the patient's lab results. Labs: Laboratory Results - last 24 hr 07/18/22 07/18/22 23:37 23:37 WBC 9.8 RBC 5.42 Hgb 16.4 Hct 47.3 MCV 87.3 MCH 30.3 MCHC 34.7 RDW Std Deviation 43.4 RDW Coeff of Filomena 13.8 Plt Count 255 MPV 9.3 Immature Gran % (Auto) 1.600 H Neut % (Auto) 89.2 H Lymph % (Auto) 3.9 L Mcdonald % (Auto) 4.9 Eos % (Auto) 0.1 Baso % (Auto) 0.3 Absolute Neuts (auto) 8.7 H Absolute Lymphs (auto) 0.38 L Nucleated RBC % 0 Differential Comment COMMENT Sodium 137 Potassium 3.8 Chloride 107 Carbon Dioxide 23.0 Anion Gap 7 BUN 39 H Creatinine 1.60 H Estim Creat Clear Calc 32.13 Est GFR (MDRD) Af Amer 53 L Est GFR (MDRD) Non-Af 44 L BUN/Creatinine Ratio 24.4 H Glucose 158 H Calcium 9.6 Radiography Diagnostic Testing: Clinical Impression(s) from Imaging Studies Ribs w/Chest X-Ray 07/18/22 23:55 IMPRESSION: There is small left pleural effusion. No evidence of displaced rib fracture. Electronically Signed: Ariel Blanco MD at 0:32 EDT , Treatment and Re-Evaluation :: Rib series with chest x-ray per my interpretation reveals no obvious fracture. No pneumothorax. Radiology interpretation is reviewed and agrees. CBC is unremarkable. Chemistry studies reveal a BUN of 39 and creatinine of 1.6, just slightly above his baseline. Glucose is 158. On repeat evaluation he does feel improved. He is able to tolerate p.o. fluids. He will be discharged with a prescription for Zofran. He will take Tylenol at home for pain as needed. Return instructions are given. Discharge Plan Triage Chief Complaint: Nausea/Vomiting/Diarrhea ED Provider: Jolie Mercado Dx/Rx/DC Orders Clinical Impression: Viral gastroenteritis, Fall, Rib contusion Instructions: ED Chest Wall Contusion, ED Gastroenteritis, Viral (Adult) Prescriptions: New ondansetron 4 mg tablet,disintegrating 4 mg PO Q8H PRN PRN (Reason: Nausea) Qty: 10 0RF No Action nitroglycerin 0.4 mg tablet, sublingual 0.4 mg SUBLINGUAL Q5-15M PRN (Reason: Chest Pain) Qty: 25 3RF sildenafil 50 mg tablet 50 mg PO DAILY PRN (Reason: Sexual Activity) Rx Instructions: administer 30 minutes to 4 hours before activity apixaban 5 mg tablet 5 mg PO BID Qty: 60 6RF magnesium 250 mg tablet 500 mg PO DAILY (DME) Handicap Placard See Rx Instructions .Route .MEDSUPPLY Qty: 1 0RF Rx Instructions: Good from 04/26/2022-04/26/2027 diphenoxylate-atropine 1 EACH tablet 1 tab PO DAILY PRN PRN (Reason: Diarrhea) Label Comments: TAKE ONE TABLET BY MOUTH EVERY DAY NEEDED chlordiazepoxide-clidinium 2.5 MG capsule 2.5 mg PO TID PRN PRN (Reason: ABD PAIN) aspirin 81 MG tablet 81 mg PO DAILY@0800 0RF finasteride 5 MG tablet 5 mg PO DAILY 0RF pantoprazole 40 mg tablet,delayed release (DR/EC) 40 mg PO DAILY lisinopril 20 mg tablet 20 mg PO BID Qty: 180 4RF simvastatin 40 mg tablet 40 mg PO QHS Qty: 90 3RF amlodipine 2.5 mg tablet 2.5 mg PO DAILY Qty: 90 3RF metoprolol tartrate 50 mg tablet 50 mg PO BID Qty: 180 3RF hydrochlorothiazide 25 mg tablet 25 mg PO DAILY Qty: 90 3RF Primary Care Provider: Eduardo Lambert Referrals: Eduardo Lambert MD [Primary Care Provider] - 3-5 Days if not improving Disposition Disposition: Home, Self Care
[2022-07-18 23:42] VITALS: BMI 35.4
[2022-07-18] MEDS: 0.9% Normal Saline 1,000 ML 150 ML IV (23:43)
[2022-07-18] MEDS: Ondansetron 4 MG/2 ML Vial IV (23:43)
--- NOTE | 2022-07-18 23:55 | RAD_ITS ---
INDICATION: injury EXAMINATION/TECHNIQUE: X-RAY - XR Ribs Unilateral W/ PA Chest Min 3 Views COMPARISON: None. FINDINGS: SOFT TISSUES: There is small left pleural effusion. BONES: No displaced fracture. No sclerotic or destructive changes observed. VISUALIZED LUNGS: Clear. No pneumothorax. RAD/Ribs Uni Min 3V w/PA Chest IMPRESSION: There is small left pleural effusion. No evidence of displaced rib fracture. Electronically Signed: Ariel Blanco MD at 0:32 EDT ,
[2022-07-18 23:57] LABS: Absolute Lymphocyte Count 0.38 X10^3/uL (0.83-4.51); Absolute Neutrophil Count 8.7 X10^3/uL (2.0-7.7); Basophil# 0.03 X10^3/uL; Basophil% 0.3 % (0-1); Eosinophil# 0.01 X10^3/uL; Eosinophils% 0.1 % (0-5); Hematocrit 47.3 % (40-54); Hemoglobin 16.4 g/dL (13.0-16.5); Lymphocyte # 0.38 X10^3/ul (0.83-4.51); Lymphocyte % 3.9 % (19-41); Mean Corp Hgb Conc 34.7 g/dL (32-36); Mean Corpuscular Hgb 30.3 pg (27.0-32.0); Mean Corpuscular Volume 87.3 fL (80-94); Mean Platelet Vol. 9.3 fl (6.2-12.0); Monocyte# 0.48 X10^3/uL; Monocyte% 4.9 % (0-10); NRBC Flagged by Analyzer 0 % (0-5); Neutrophil # 8.73 X10^3/uL (2.7-7.7); Neutrophil % 89.2 % (47-70); POSITIVE DIFFERENTIAL YES; Platelet Count 255 K/mm3 (150-450); RBC Distribution Width CV 13.8 % (11.6-14.6); RBC Distribution Width SD 43.4 fl (35.1-43.9); Red Blood Count 5.42 M/mm3 (4.6-6.2); White Blood Count 9.8 K/mm3 (4.4-11.0)
[2022-07-18 23:59] LABS: Anion Gap 7 (5-15); BUN 39 mg/dL (7-18); BUN/Creat Ratio 24.4 RATIO (10-20); Calcium,Total 9.6 mg/dL (8.5-10.1); Chloride 107 mmol/L (98-107); EST Glomerular Filtration Rate 44 mL/min (>60); Est Glom Filt Rate - Afr Amer 53 mL/min (>60); Estimated Creatinine Clearance 32.13 ml/min; Glucose 158 mg/dL (74-106); Potassium 3.8 mmol/L (3.5-5.1); Sodium Level 137 mmol/L (136-145)
[2022-07-19 00:02] LABS: Differential Indicated SCAN CRITERIA MET
== END 2022-07-19 01:28 | disposition home or self-care (01) ==
PROVIDERS: Emergency Provider Emergency Medicine; PCP Family Medicine; Visit Provider Emergency Medicine
DX: A08.4 Viral intestinal infection, unspecified (principal); I10 Essential (primary) hypertension; S20.219A Contusion of unspecified front wall of thorax, initial encounter; I25.10 Atherosclerotic heart disease of native coronary artery without angina pectoris; E78.2 Mixed hyperlipidemia; W06.XXXA Fall from bed, initial encounter
CPT/HCPCS: 71101; 80048; 85025; 96361; 96374; 99282; J7030; A4216; J2405

== ENCOUNTER → 2023-02-01 | Outpatient (CLI) | payer MEDICARE, OTHER, SELFPAY ==
[2017-03-06 15:16] VITALS: BMI 49.1
--- NOTE | 2023-02-01 08:56 | ART_ITS ---
Reason For Study: Decreased Pedal Pulses Procedure A bilateral lower extremity continuous wave Doppler with analog waveform analysis,segmental pressures,and ankle brachial indexes without exercise. Left Segmental Pressures Left brachial= 120mmHg. Left posterior tibial artery = 153mmHg. Left dorsalis pedis artery = 160mmHg. Left digit = 102 mmHg. Right Segmental Pressures Right brachial= 122mmHg. Right posterior tibial artery = 171mmHg. Right dorsalis pedis artery = 154mmHg. Right digit = 108 mmHg. Indices The right ankle brachial index by the posterior tibial artery is 1.40. The right ankle brachial index by the dorsalis pedis is 1.26. The right digital-brachial index is 0.89. The left ankle brachial index by the posterior tibial artery is 1.25. The left ankle brachial index by the dorsalis pedis is 1.31. The left digital-brachial index is 0.84. VL/Lower Ext Art Exam w/o Exercis Interpretation Summary Right GWYN 1.4, normal. TBI and Doppler/PVR waveforms of the right leg normal at rest. Left GWYN 1.31, normal. TBI and Doppler/PVR waveforms of the left leg normal at rest. Ordering Physician: Ciarra May Referring Physician: Eduardo Lambert Performed By: VISHAL JONAS T
--- NOTE | 2023-02-01 08:56 | ECHOD_ITS ---
Reason For Study: MURMUR Procedure This was a 2D Doppler, Color Flow transthoracic echocardiogram. Exam performed in department. Left Ventricle Normal LV size. Left ventricular systolic function is normal. The estimated ejection fraction is 60 %. No regional wall motion abnormalities noted. Right Ventricle Normal RV size. Normal systolic function. Atria Normal left atrium. Normal right atrium. Mitral Valve Bileaflet diffuse mitral valve thickening. Posterior leaflet mitral valve prolapse. Moderate (2+) anteriorly directed mitral valve insufficiency. Tricuspid Valve Normal tricuspid valve. Mild (1+) tricuspid valve insufficiency. Pulmonary artery systolic pressure is 42 mmHg. Aortic Valve Trisinus/trileaflet aortic valve. Mild focal aortic valve calcification. Mild (1+) aortic valve insufficiency. Pulmonic Valve Normal pulmonic valve. Mild (1+) pulmonic valve insufficiency. Great Vessels Mildly dilated aortic root. The pulmonary artery is normal size. Inferior vena cava collapse with sniff. Pericardium/Pleural No pericardial effusion. MMode/2D Measurements & Calculations LVIDd: 4.8 cm IVSd: 1.4 cm Ao root diam: 3.9 cm LVIDs: 3.5 cm LVPWd: 1.8 cm FS: 25.9 % LAV(MOD-bp): 121.0 ml LVAd ap4: 37.1 cm2 SV(MOD-sp4): 90.5 ml LAV(MOD-bp) Indexed: 58.1 ml/m2 LVLd ap4: 9.0 cm LAV(MOD-sp2): 113.4 ml EDV(MOD-sp4): 131.7 ml LAV(MOD-sp4): 105.4 ml EDV(sp4-el): 130.1 ml LVAs ap4: 17.7 cm2 LVLs ap4: 6.7 cm ESV(MOD-sp4): 41.3 ml ESV(sp4-el): 40.1 ml EF(MOD-sp4): 68.7 % EF(sp4-el): 69.2 % SV(sp4-el): 90.0 ml LA A4 area: 31.5 cm2 LA dimension(2D): 4.6 cm RA A4 area: 17.8 cm2 TAPSE: 2.2 cm Time Measurements MV dec time: 0.22 sec Doppler Measurements & Calculations MV E max ford: 115.6 cm/sec Lat Peak E' Ford: 9.6 cm/sec Med Peak E' Ford: 6.5 cm/sec MV A max ford: 55.3 cm/sec E/E' lat: 12.0 E/E' med: 17.8 MV E/A: 2.1 MV V2 max: 136.1 cm/sec Ao V2 max: 142.7 cm/sec MV max P.4 mmHg MV dec slope: 541.0 cm/sec2 Ao max P.1 mmHg MV V2 mean: 68.1 cm/sec Ao V2 mean: 94.6 cm/sec MV mean P.3 mmHg Ao mean P.3 mmHg MV V2 VTI: 43.7 cm Ao V2 VTI: 28.8 cm AV (velocity ratio): 0.67 LV V1 max: 100.9 cm/sec PA V2 max: 98.2 cm/sec TR max ford: 306.8 cm/sec LV V1 max P.1 mmHg PA V2 mean: 20.9 cm/sec TR max P.6 mmHg LV V1 mean P.3 mmHg LV V1 mean: 71.4 cm/sec LV V1 VTI: 19.4 cm ECHO/Echo Complete Interpretation Summary Normal LV size. Left ventricular systolic function is normal. The estimated ejection fraction is 60 %. Bileaflet diffuse mitral valve thickening. Posterior leaflet mitral valve prolapse. Moderate (2+) anteriorly directed mitral valve insufficiency. Pulmonary artery systolic pressure is 42 mmHg. Compared to previous study, the left ventricular systolic function is the same. . Ordering Physician: Ciarra May Referring Physician: Ciarra May Performed By: Yolie Schmid RCS
== END | disposition home or self-care (01) ==
LOC: CVS 08:56
PROVIDERS: PCP Family Medicine; Referring Provider Physician Assistant Medical; Visit Provider Physician Assistant Medical
DX: I73.9 Peripheral vascular disease, unspecified (principal); I25.10 Atherosclerotic heart disease of native coronary artery without angina pectoris; R01.1 Cardiac murmur, unspecified
CPT/HCPCS: 93306; 93923

== ENCOUNTER → 2024-07-29 | Outpatient (CLI) | payer MEDICARE, OTHER, SELFPAY ==
[2017-03-06 15:16] VITALS: BMI 49.1
--- NOTE | 2024-07-29 06:07 | ECHOD_ITS ---
Reason For Study Reason For Study: MVP Procedure This was a 2D Doppler, Color Flow transthoracic echocardiogram. Exam performed in department. Left Ventricle Normal LV size. Moderate concentric left ventricular hypertrophy. Left ventricular systolic function is normal. The left ventricular ejection fraction is 65 %. No regional wall motion abnormalities noted. Right Ventricle Normal RV size. Normal systolic function. Atria The left atrium is moderately enlarged. Normal right atrium. Mitral Valve Mild mitral valve prolapse. Moderate (2+) anteriorly directed mitral valve insufficiency. Tricuspid Valve Normal tricuspid valve. Mild to moderate (1-2+) tricuspid valve insufficiency. Pulmonary artery systolic pressure is 52 mmHg. Aortic Valve Trisinus/trileaflet aortic valve. Mild focal aortic valve calcification. Pulmonic Valve Normal pulmonic valve. Great Vessels Mildly calcified aortic root. The pulmonary artery is normal size. Inferior vena cava collapse with respiration. Pericardium/Pleural No pericardial effusion. MMode/2D Measurements & Calculations LVIDd: 4.8 cm IVSd: 1.4 cm Ao root diam: 3.8 cm LVIDs: 3.4 cm LVPWd: 1.5 cm RVDd: 3.5 cm FS: 29.7 % LAV(MOD-bp): 70.0 ml LVAd ap4: 38.4 cm2 SV(MOD-sp4): 93.2 ml LAV(MOD-bp) Indexed: 34.1 ml/m2 LVLd ap4: 9.5 cm SI(MOD-sp4): 45.4 ml/m2 LAV(MOD-sp2): 46.8 ml EDV(MOD-sp4): 133.6 ml LAV(MOD-sp4): 83.1 ml EDV(sp4-el): 132.6 ml LVAs ap4: 19.3 cm2 LVLs ap4: 7.6 cm ESV(MOD-sp4): 40.4 ml ESV(sp4-el): 41.7 ml EF(MOD-sp4): 69.7 % EF(sp4-el): 68.5 % SV(sp4-el): 90.9 ml LA A4 area: 26.1 cm2 LA dimension(2D): 4.5 cm RA A4 area: 13.6 cm2 TAPSE: 2.2 cm Time Measurements MV dec time: 0.19 sec Doppler Measurements & Calculations MV E max ford: 142.0 cm/sec Lat Peak E' Ford: 4.6 cm/sec Med Peak E' Ford: 6.6 cm/sec MV A max ford: 73.7 cm/sec E/E' lat: 31.2 E/E' med: 21.6 MV E/A: 1.9 Ao V2 max: 182.6 cm/sec AI max ford: 378.0 cm/sec MV dec slope: 737.0 cm/sec2 Ao max P.3 mmHg AI max P.1 mmHg Ao V2 mean: 134.7 cm/sec Ao mean P.8 mmHg AI dec slope: 198.6 cm/sec2 Ao V2 VTI: 29.2 cm AI P1/2t: 557.5 msec AV (velocity ratio): 0.63 LV V1 max: 88.0 cm/sec PA V2 max: 81.6 cm/sec PI end-d ford: 124.8 cm/sec LV V1 max P.1 mmHg LV V1 mean P.7 mmHg LV V1 mean: 60.0 cm/sec LV V1 VTI: 18.5 cm TR max ford: 347.4 cm/sec TR max P.3 mmHg ECHO/Echo Complete Interpretation Summary Mild mitral valve prolapse. Moderate (2+) anteriorly directed mitral valve insufficiency. Normal LV size. Left ventricular systolic function is normal. The left ventricular ejection fraction is 65 %. Moderate concentric left ventricular hypertrophy. Ordering Physician: Ciarra May Referring Physician: Eduardo Lambert Performed By: Yajaira Alvarez RDCS, RVT
--- NOTE | 2024-07-29 10:21 | STRESSREP_ITS ---
Stress Test Report Pharmacologic myocardial perfusion stress test. 88-year-old man with a history of coronary artery disease Resting EKG demonstrates sinus rhythm with premature ventricular complexes with a rate of 71 bpm. Resting blood pressure is 142/62 mmHg. 0.4 mg of regadenoson was infused per usual protocol followed by rapid intravenous saline flush i njection. Continuous EKG monitoring was performed. The maximum heart rate was 89 bpm which was 66% of max impacted heart rate the maximum workload was 1 metabolic equivalent. At rest there were no ST or T wave changes noted to suggest ischemia and at peak infusion nonspecific ST changes were noted which did not meet the criteria for ischemia. No clinical angina is noted. The final blood pressure was 130/60 mmHg. Myocardial perfusion protocol. 15.0 mCi of technetium 99m sestamibi was injected at rest. 0.4 mg of regadenoson was infused per usual protocol. At peak infusion 44.6 mCi of t echnetium 99m sestamibi was injected stress images were obtained stress and rest images were reconstructed and compared in the short axis vertical long and horizontal long axis. Gated images were also obtained. Perfusion SPECT analysis: Review of the stress images demonstrate normal uptake of tracer noted in all areas of the myocardium. The resting images similar demonstrated normal uptake of tracer noted in all areas of the myocardium. No areas of reversibility are noted to suggest ischemia and no previous infarct is noted. Gated SPECT analysis: The gated ejection fraction is 64%. Conclusion: Normal pharmacologic myocardial perfusion stress test. Preserved ejection fraction.
== END | disposition home or self-care (01) ==
LOC: CVS 06:05
PROVIDERS: PCP Family Medicine; Referring Provider Physician Assistant Medical; Visit Provider Physician Assistant Medical
DX: I34.1 Nonrheumatic mitral (valve) prolapse (principal); I25.10 Atherosclerotic heart disease of native coronary artery without angina pectoris
CPT/HCPCS: 78452; 93017; 93306; A9500; A4216; J2785